=== PATIENT | female | born 1935 | race Caucasian/White ===

== ENCOUNTER 2016-06-04 09:20 | Emergency (ER) | payer MEDICARE ==
[2015-05-17 23:12] VITALS: BMI 28.5
[~2016-06-04 09:20] MED LIST: ASCORBIC ACID500 MG PO; ASPIRIN325 MG PO; COUMADIN5 MG PO; DULERA 100 MCG8.8 GM INH; INDERAL10 MG PO; K-TAB10 MEQ PO; LANOXIN125 MCG PO; LOPRESSOR25 MG PO; MEDROL4 MG PO; METOPROLOL TAR100 M1 PO; PEPCID40 MG PO; PLAVIX75 MG PO; PROTONIX40 MG PO; PROVERA10 MG PO; VITAMIN B-1100 M1 PO; VITAMIN B650 MG PO; VITAMIN D3400 UNI1 PO
[2016-06-04 10:08] LABS: BASOPHILS 0.1 % (0.0-2.0); EOSINOPHILS 1.2 % (0-7); HEMATOCRIT 50.3 % (36.0-48.0); IMMATURE GRANULOCYTES 0.3 % (0-5); LYMPHOCYTES 14.3 % (15-50); MCH 32.3 pg (26.0-34.0); MCHC 33.8 g/dL (31.0-37.0); MCV 95.6 fL (80.0-100.0); MEAN PLATELET VOLUME 11.9 fL (7.4-10.4); MONOCYTES 9.3 % (2-11); NEUTROPHILS 74.8 % (40-80); PLATELET COUNT 196 10x3/uL (130-400); RBC 5.26 10x6/uL (4.00-5.40); RDW 12.9 % (11.5-14.5); WBC 11.7 10x3/uL (4.8-10.8)
[2016-06-04 10:12] LABS: INR 1.66 (0.85-1.17); PROTIME 19.6 SECONDS (11.6-15.0)
[2016-06-04 10:40] LABS: ALKALINE PHOSPHATASE 67 U/L (46-116); ALT (SGPT) 21 U/L (10-68); CALC OSMOLALITY 272 mosm/kg (275-300); CALCIUM 9.2 mg/dL (8.5-10.1); CARBON DIOXIDE 26.4 mmol/L (21.0-32.0); CHLORIDE - SERUM 98 mmol/L (98-107); CREATININE - SERUM 0.7 mg/dL (0.6-1.3); POTASSIUM - SERUM 4.1 mmol/L (3.5-5.1); PROTEIN - SERUM 6.3 g/dL (6.4-8.2); SODIUM 135 mmol/L (136-145); UREA NITROGEN 10 mg/dL (7-18); eGFR NON AFRICAN AMERICAN 85 mL/min (90-120)
[2016-06-04 10:43] LABS: GLUCOSE 173 mg/dL (74-106); TROPONIN-I < 0.017 ng/mL (0.000-0.060)
== END 2016-06-04 11:34 | disposition home or self-care (01) ==
LOC: D.ER 09:20
PROVIDERS: Family Medicine
DX: K92.2 Gastrointestinal hemorrhage, unspecified (principal); N81.10 Cystocele, unspecified; I48.91 Unspecified atrial fibrillation; I10 Essential (primary) hypertension

== ENCOUNTER 2017-04-01 17:16 | Emergency (ER) | payer MEDICARE ==
[2015-05-17 23:12] VITALS: BMI 28.5
== END 2017-04-01 19:52 | disposition home or self-care (01) ==
LOC: D.ER 17:16
DX: S70.02XA Contusion of left hip, initial encounter (principal); W01.0XXA Fall on same level from slipping, tripping and stumbling without subsequent striking against object, initial encounter; Y93.89 Activity, other specified; Y92.89 Other specified places as the place of occurrence of the external cause

== ENCOUNTER 2017-04-05 08:44 | Inpatient (IN) | payer MEDICARE ==
[~2017-04-05] VITALS: Ht 152.4 cm; Wt 69.1 kg
--- NOTE | 2017-04-05 14:01 | NUR ---
PATIENT TO FLOOR AT THIS TIME. IV INTACT. FAMILY AT BEDSIDE. NO COMPLAINTS OR SIGNS OF DISTRESS. CALL LIGHT WITHIN REACH.
--- NOTE | 2017-04-05 15:00 | NUR ---
PATIENT IVF INFUSING AND MORPHINE 4 MG GIVEN IVP OVER 4 MIN. NO COMPLAINTS AT THIS TIME. FAMILY AT BEDSIDE. CALL LIGHT WITHIN REACH.
[2017-04-05 16:25] VITALS: BP 120/70; Ht 152.4 cm; Wt 69.1 kg
--- NOTE | 2017-04-05 16:26 | NUR ---
Rehab Note- Acute Rehab Prescreen order received. The pateint was admitted for the ER today. She has [employer] insurance and will require a PreAuth prior to an acute rehab stay. Will start the PreAuth process. Thank you for this referral! Mita Soto RN Clinical Liaison, [facility] Rehab
[2017-04-05 16:48] VITALS: BP 129/70
--- NOTE | 2017-04-05 18:30 | NUR ---
PATIENT IN BED WITH IV INTACT. NO COMPLAINTS AT THIS TIME. CALL LIGHT WITHIN REACH.
[2017-04-05 19:06] LABS: BASOPHILS 0.2 % (0-2); EOSINOPHILS 1.1 % (0-7); HEMATOCRIT 45.1 % (36.0-48.0); HEMOGLOBIN 15.6 g/dL (12-16); IMMATURE GRANULOCYTES 0.2 % (0-5); LYMPHOCYTES 17.7 % (15-50); MCH 32.6 pg (26.0-34.0); MCHC 34.6 g/dL (31.0-37.0); MCV 94.4 fL (80.0-100.0); MEAN PLATELET VOLUME 10.9 fL (7.4-10.4); MONOCYTES 11.5 % (2-11); NEUTROPHILS 69.3 % (40-80); PLATELET COUNT 185 10x3/uL (130-400); RBC 4.78 10x6/uL (4.00-5.40); RDW 13.1 % (11.5-14.5); WBC 5.7 10x3/uL (4.8-10.8)
[2017-04-05 19:11] LABS: INR 3.09 (0.85-1.17); PROTIME 32.1 SECONDS (11.6-15.0)
[2017-04-05 19:16] LABS: ALBUMIN 3.2 g/dL (3.4-5.0); ALKALINE PHOSPHATASE 65 U/L (46-116); ALT (SGPT) 36 U/L (10-68); BILIRUBIN - TOTAL 0.79 mg/dL (0.2-1.3); CALC OSMOLALITY 281 mosm/kg (275-300); CALCIUM 8.8 mg/dL (8.5-10.1); CARBON DIOXIDE 25.6 mmol/L (21.0-32.0); CHLORIDE - SERUM 103 mmol/L (98-107); CREATININE - SERUM 0.7 mg/dL (0.6-1.3); GLUCOSE 140 mg/dL (74-106); POTASSIUM - SERUM 3.7 mmol/L (3.5-5.1); PROTEIN - SERUM 6.5 g/dL (6.4-8.2); SODIUM 140 mmol/L (136-145); UREA NITROGEN 14 mg/dL (7-18); eGFR NON AFRICAN AMERICAN 85 mL/min (90-120)
[2017-04-05 20:00] VITALS: BP 127/60
[2017-04-06 00:43] VITALS: BP 140/77
[2017-04-06 04:00] VITALS: BP 120/65
[2017-04-06 06:47] LABS: BASOPHILS 0 % (0-2); EOSINOPHILS 0 % (0-7); HEMATOCRIT 46.1 % (36.0-48.0); HEMOGLOBIN 16.1 g/dL (12-16); IMMATURE GRANULOCYTES 0.2 % (0-5); LYMPHOCYTES 12.9 % (15-50); MCH 33.1 pg (26.0-34.0); MCHC 34.9 g/dL (31.0-37.0); MCV 94.9 fL (80.0-100.0); MEAN PLATELET VOLUME 10.8 fL (7.4-10.4); MONOCYTES 1.1 % (2-11); NEUTROPHILS 85.8 % (40-80); PLATELET COUNT 177 10x3/uL (130-400); RBC 4.86 10x6/uL (4.00-5.40); RDW 13.1 % (11.5-14.5); WBC 5.3 10x3/uL (4.8-10.8)
[2017-04-06 07:13] LABS: ALBUMIN 3.2 g/dL (3.4-5.0); ALKALINE PHOSPHATASE 59 U/L (46-116); ALT (SGPT) 41 U/L (10-68); CALC OSMOLALITY 278 mosm/kg (275-300); CARBON DIOXIDE 23.6 mmol/L (21.0-32.0); CHLORIDE - SERUM 102 mmol/L (98-107); GLUCOSE 165 mg/dL (74-106); POTASSIUM - SERUM 3.8 mmol/L (3.5-5.1); PROTEIN - SERUM 6.6 g/dL (6.4-8.2); SODIUM 137 mmol/L (136-145); UREA NITROGEN 16 mg/dL (7-18)
[2017-04-06 07:15] LABS: CALCIUM 9.4 mg/dL (8.5-10.1); CREATININE - SERUM 0.5 mg/dL (0.6-1.3); eGFR NON AFRICAN AMERICAN > 90 mL/min (90-120)
[2017-04-06 07:23] LABS: INR 2.9 (0.85-1.17); PROTIME 30.5 SECONDS (11.6-15.0)
[2017-04-06 09:30] VITALS: BP 140/78
--- NOTE | 2017-04-06 10:53 | NUR ---
Rehab Note- PreAuth started with Yvonne. Will follow at this time. The patient has been seen by Neurosurgeon and noted possible kyphoplasty for pain control due to compression fracture, this will need to be done during her acute hospital stay if chosen to proceed with this procedure. Thank you for this referral! Mita Soto RN Clinical Liaison, [facility] Re[facility]
--- NOTE | 2017-04-06 14:00 | NUR ---
PATIENT IV FELL OUT AT THIS TIME. CATH TIP INTACT. EXPLAINED TO PATIENT OK TO LEAVE OUT BC BEING DCD TODAY. VERBALIZED UNDERSTANDING.
[2017-04-06 14:13] VITALS: BP 142/71
--- NOTE | 2017-04-06 14:47 | NUR ---
Patient Name: EMILIANO PATEL Admission Status: ER Accout number: [id number] Admission Date: 04-05-2017 : 1935 Admission Diagnosis:UNSP FRACTURE OF T5-T6 VERTEBRA, INIT FOR CLOS FX Attending: JUANA BIRCH Current LOS: 1 Anticipated DC Date: Planned Disposition: Home Primary Insurance: [employer] CHOICE PPO MCR [employer] Discharge Planning Comments: CM MET WITH PATIENT TO ASSESS DISCHARGE PLANNING NEEDS. PATIENT LIVES HOME ALONE AND PLANS TO RETURN THERE TODAY. PATIENT'S DAUGHTER WILL BE DRIVING HER HOME. DR GAMBINO PERSONALLY WALKED PATIENT AND DID NOT WANT THE PATIENT TO HAVE HH, PATIENT ALSO DID NOT WANT HOME HEALTH. PATIENT STATED THAT SHE HAD PLENTY OF HELP AT HOME. PATIENT HAS A WALKER AT HOME. PATIENT ALSO HAS HOUSE CALLS WITH DR PIRES OFFICE. CM WILL CONTINUE TO FOLLOW AND ASSIST IF NEEDED [facility] [address] HUGH CISNEROS (DAUGHTER) [phone] Purchasing Analyst: Africa King * Is the patient Alert and Oriented? Yes 0 * How many steps to enter\exit or inside your home? 1 0 * PCP ELIZABETH HOUSE CALLS 0 * Pharmacy [facility] [address] 0 * Preadmission Environment Home Alone 0 * ADLs Independent 0 * Equipment Walker 0 * List name and contact numbers for known caregivers / representatives who currently or will assist patient after discharge: HUGH CISNEROS (DAUGHTER) [phone] 0 * Community resources currently utilized Other 0 * Please name any agencies selected above. HOUSE CALLS 0 * Additional services required to return to the preadmission environment? No 0 * Can the patient safely return to the preadmission environment? Yes 0 * Has this patient been hospitalized within the prior 30 days at any hospital? No 0 Grand Total: 0
--- NOTE | 2017-04-06 16:55 | NUR ---
PATIENT RECIEVED DISCHARGE INSTRUCTIONS. VERBALIZED UNDERSTANDING. NO QUESTIONS AT THIS TIME. FAMILY AT BEDSIDE. CALL LIGHT WITHIN REACH. WC FOR DC.
== END 2017-04-06 18:57 | disposition home or self-care (01) | DRG 552 ==
LOC: D.ER 08:44 → D.MS 12:26
PROVIDERS: ADMIT Emergency Medicine
DX: S22.059A Unspecified fracture of T5-T6 vertebra, initial encounter for closed fracture (principal); S22.069A Unspecified fracture of T7-T8 vertebra, initial encounter for closed fracture; S22.079A Unspecified fracture of T9-T10 vertebra, initial encounter for closed fracture; W17.89XA Other fall from one level to another, initial encounter; R07.9 Chest pain, unspecified; I48.91 Unspecified atrial fibrillation; I73.9 Peripheral vascular disease, unspecified; E87.5 Hyperkalemia; R79.89 Other specified abnormal findings of blood chemistry; G20 Parkinson's disease

== ENCOUNTER 2018-07-29 18:36 | Emergency (ER) | payer MEDICARE ==
[~2018-07-29] VITALS: Ht 152.4 cm; Wt 64.1 kg
[2018-07-29 18:41] VITALS: Ht 152.4 cm; Wt 64.1 kg
[2018-07-29 18:54] LABS: BASOPHILS 0.3 % (0-2); EOSINOPHILS 1.7 % (0-7); HEMATOCRIT 44.1 % (36.0-48.0); HEMOGLOBIN 15.2 g/dL (12-16); IMMATURE GRANULOCYTES 0.3 % (0-5); LYMPHOCYTES 24.5 % (15-50); MCH 32.5 pg (26.0-34.0); MCHC 34.5 g/dL (31.0-37.0); MCV 94.2 fL (80.0-100.0); MEAN PLATELET VOLUME 10.6 fL (7.4-10.4); NEUTROPHILS 60.2 % (40-80); RBC 4.68 10x6/uL (4.00-5.40); RDW 14.3 % (11.5-14.5); WBC 10.5 10x3/uL (4.8-10.8)
[2018-07-29 18:56] LABS: PLATELET COUNT 235 10x3/uL (130-400)
[2018-07-29 19:04] LABS: INR 1.27 (0.85-1.17); PROTIME 15.3 SECONDS (11.6-15.0)
[2018-07-29 19:06] LABS: ALBUMIN 3.1 g/dL (3.4-5.0); ALKALINE PHOSPHATASE 65 U/L (46-116); ALT (SGPT) 19 U/L (10-68); BILIRUBIN - TOTAL 0.38 mg/dL (0.2-1.3); CALC OSMOLALITY 272 mosm/kg (275-300); CALCIUM 8.5 mg/dL (8.5-10.1); CARBON DIOXIDE 28.8 mmol/L (21.0-32.0); CHLORIDE - SERUM 98 mmol/L (98-107); CREATININE - SERUM 0.7 mg/dL (0.6-1.3); GLUCOSE 121 mg/dL (74-106); POTASSIUM - SERUM 4.4 mmol/L (3.5-5.1); PROTEIN - SERUM 6.9 g/dL (6.4-8.2); SODIUM 136 mmol/L (136-145); UREA NITROGEN 13 mg/dL (7-18); eGFR NON AFRICAN AMERICAN 85 mL/min (90-120)
[2018-07-29 19:18] LABS: CKMB 0.7 U/L (0.0-3.6); CREATINE KINASE 132 UL (21-215); MAGNESIUM - SERUM 1.9 mg/dL (1.8-2.4)
[2018-07-29 19:27] LABS: TROPONIN-I < 0.017 ng/mL (0.000-0.060)
[2018-07-29 23:00] VITALS: BP 145/87
== END 2018-07-29 23:00 | disposition other institution (70) ==
LOC: D.ER 18:36
PROVIDERS: Emergency Medicine
DX: I63.9 Cerebral infarction, unspecified (principal); R29.810 Facial weakness; G81.91 Hemiplegia, unspecified affecting right dominant side; R47.9 Unspecified speech disturbances; Z92.82 Status post administration of tPA (rtPA) in a different facility within the last 24 hours prior to admission to current facility; I48.91 Unspecified atrial fibrillation; Z79.01 Long term (current) use of anticoagulants; I10 Essential (primary) hypertension; R74.8 Abnormal levels of other serum enzymes

== ENCOUNTER 2018-08-04 15:00 | Inpatient (IN) | payer MEDICARE ==
[~2018-08-04] VITALS: Ht 152.4 cm; Wt 54.4 kg
--- NOTE | 2018-08-04 15:15 | NUR ---
PATIENT ARRIVED TO UNIT VIA WHEELCHAIR ACCOMPANIED BY DAUGHTERS. TAKEN TO ROOM 1115 AND HOSPITAL GOWN WAS PUT ON HER. SHE WAS ASSISTED TO BED (MIN ASSIST). CALL LIGHT INSTRUCTIONS GIVEN. PATIENT ALERT AND ORIENTED. RESTING IN BED WATCHING TV AT THIS TIME.
[2018-08-04 15:50] VITALS: BP 135/84
--- NOTE | 2018-08-04 16:55 | NUR ---
ADMISSION ASSESSMENT AND ADMISSION HISTORY COMPLETED.
--- NOTE | 2018-08-04 19:25 | NUR ---
PATIENT IS RESTING IN HER BED. DENIES ANY NEEDS. HER BED IS DOWN LOW WITH SIDE RAILS UP X2 AND CALL LIGHT IS IN REACH.
[2018-08-04 19:34] VITALS: BP 121/54
--- NOTE | 2018-08-04 21:52 | NUR ---
PT SHOWERED WITH MIN ASSIST. BED LINENS CHANGED. PT ASSISTED BACK TO BED. PT VOICED COMPLAINT OF BP FEELING HIGH. IT WAS 202/82. PT MEDICATED PER JUL.
--- NOTE | 2018-08-04 21:53 | NUR ---
PT RESTING QUIETLY IN BED WITH EYES CLOSED. RESPS ARE EVEN AND UNLABORED. NO ACUTE DISTRESS NOTED.
--- NOTE | 2018-08-05 00:49 | NUR ---
PT RESTING IN BED WITH EYES CLOSED.
--- NOTE | 2018-08-05 03:59 | NUR ---
PT RESTING QUIETLY IN BED WITH EYES CLOSED. NO DISTRESS NOTED.
--- NOTE | 2018-08-05 06:12 | NUR ---
PT RESTING IN BED WITH EYES CLOSED. RESPS ARE EVEN AND UNLABORED. NO ACUTE DISTRESS NOTED. AWAITING THERAPY EVAL THIS AM.
[2018-08-05 07:18] LABS: BASOPHILS 0.6 % (0-2); EOSINOPHILS 2.3 % (0-7); HEMATOCRIT 42.8 % (36.0-48.0); HEMOGLOBIN 14.7 g/dL (12-16); IMMATURE GRANULOCYTES 0.4 % (0-5); LYMPHOCYTES 21.2 % (15-50); MCH 32.2 pg (26.0-34.0); MCHC 34.3 g/dL (31.0-37.0); MCV 93.9 fL (80.0-100.0); MEAN PLATELET VOLUME 10.4 fL (7.4-10.4); MONOCYTES 10.8 % (2-11); NEUTROPHILS 64.7 % (40-80); RBC 4.56 10x6/uL (4.00-5.40); RDW 13.8 % (11.5-14.5); WBC 8.3 10x3/uL (4.8-10.8)
[2018-08-05 07:26] LABS: CALC OSMOLALITY 281 mosm/kg (275-300); CALCIUM 8.6 mg/dL (8.5-10.1); CARBON DIOXIDE 27.5 mmol/L (21.0-32.0); CHLORIDE - SERUM 104 mmol/L (98-107); CREATININE - SERUM 0.6 mg/dL (0.6-1.3); GLUCOSE 107 mg/dL (74-106); POTASSIUM - SERUM 3.2 mmol/L (3.5-5.1); SODIUM 142 mmol/L (136-145); UREA NITROGEN 11 mg/dL (7-18); eGFR NON AFRICAN AMERICAN > 90 mL/min (90-120)
[2018-08-05 07:45] LABS: PLATELET COUNT 291 10x3/uL (130-400)
[2018-08-05 08:02] VITALS: BP 136/69
--- NOTE | 2018-08-05 10:56 | NUR ---
PATIENT ALERT AND OREINTED THIS MORNING. FED SELF 100% OF BREAKFAST. NO COMPLAINTS OF PAIN OR DISCOMFORT. HAS TROUBLE SPEAKING AT TIMES BUT APPEARS TO UNDERSTAND AND IS NOT CONFUSED THIS MORNING. UP FOR THERAPY THIS MORNING. WILL CONTINUE TO MONITOR.
[2018-08-05 11:08] VITALS: Ht 152.4 cm; Wt 54.4 kg
--- NOTE | 2018-08-05 17:35 | NUR ---
PATIENT HAD SPEECH THERAPY THIS AFTERNOON. GOT UP OUT OF BED WITHOUT ASKING FOR HELP. REMINDED THAT SHE NEEDS TO USE CALL LIGHT AND ASKE FOR HELP IF SHE NEEDS TO GET UP. FAMILY IN TO VISIT. PATIENT RESTING AT THIS TIME. WILL CONTINUE TO MONITOR. CALL LIGHT WITHIN REACH.
--- NOTE | 2018-08-05 19:20 | NUR ---
THE PATIENT WAS LYING IN BED AND WATCHING TELEVISION WHEN STAFF ENTERED HER ROOM. BED IS IN THE LOW POSITION WITH SIDERAILS X2 AND CALL LIGHT WITHIN REACH. THE PATIENT WAS EDUCATED ON THE NEED TO CALL FOR ASSISTANCE WHEN SHE WANTS TO GET OUT OF BED AND USE OF A CALL LIGHT. THE PATIENT DEMONSTRATED UNDERSTANDING OF BOTH VIA TEACHBACK METHOD. THE PATIENT APPEARS COMFORTABLE WITH NO QUESTIONS OR COCNERNS AT THIS TIME.
[2018-08-05 20:00] VITALS: BP 125/59
--- NOTE | 2018-08-06 02:13 | NUR ---
THE PATIENT APPEANS TO BE SLEEPING COMFORTABLY. BED IS IN THE LOW POSITION WITH SIDERAILS X2 AND CALL LIGHT WITHIN REACH.
--- NOTE | 2018-08-06 07:30 | NUR ---
REC'D PT IN BED WITH EYES OPEN. ALERT AND ORIENTED X 2. CONFUSION NOTED AT THIS TIME. NO C/O PAIN OR DISCOMFORT. S/SX OF DISTRESS NOTED. ASSESSMENT COMPLETED. PT HAS TROUBLE WITH SPEECH AT TIMES BUT STILL ABLE TO MAKE OUT WORDS. WILL CONTINUE TO MONITOR.
[2018-08-06 08:00] VITALS: BP 137/67
--- NOTE | 2018-08-06 14:32 | NUR ---
RESTING IN BED AT THIS TIME. NO DISTRESS NOTED.
--- NOTE | 2018-08-06 15:27 | NUR ---
PATIENT ADMITTED TO REHAB FROM ER. PATIENT PCP IS DR. CLAUS JOHNSON. WILL CONTINUE TO FOLLOW WITH PATIENT AND WILL ASSIT WITH DISCHARGE NEEDS,
--- NOTE | 2018-08-06 16:29 | NUR ---
NO CHANGE IN ASSESSMENT. NO DISTRESS NOTED. CL IN REACH. BED ALARM ON.
--- NOTE | 2018-08-06 19:41 | NUR ---
PATIENT RECEIVED SITTING UP IN BED WATCHING TV. VITAL SIGNS & ASSESMENT DONE. NO C/O PAIN OR DISTRESS. PATIENT BED LOW. ALARM ON. BEDSIDE TABLE & CALL LIGHT WITHIN REACH. WILL CONTINUE TO MONITOR.
[2018-08-06 19:57] VITALS: BP 117/59
--- NOTE | 2018-08-07 01:20 | NUR ---
RESTING IN BED WITH NO DISTRESS NOTED. RESPIRATIONS UNLABORED. CALL LIGHT IN REACH.
--- NOTE | 2018-08-07 03:58 | NUR ---
PATIENT EYES CLOSED. RESPIRATIONS 18 & EVEN. PATIENT BED LOW. ALARM ON. CALL LIGHT WITHIN REACH. WILL CONTINUE TO MOITOR.
[2018-08-07 07:28] LABS: BASOPHILS 0.4 % (0-2); EOSINOPHILS 3.4 % (0-7); HEMATOCRIT 40.1 % (36.0-48.0); HEMOGLOBIN 13.8 g/dL (12-16); IMMATURE GRANULOCYTES 0.4 % (0-5); LYMPHOCYTES 15.4 % (15-50); MCHC 34.4 g/dL (31.0-37.0); MEAN PLATELET VOLUME 10.2 fL (7.4-10.4); MONOCYTES 12.9 % (2-11); NEUTROPHILS 67.5 % (40-80); PLATELET COUNT 338 10x3/uL (130-400); RBC 4.31 10x6/uL (4.00-5.40); RDW 13.4 % (11.5-14.5); WBC 6.8 10x3/uL (4.8-10.8)
[2018-08-07 07:46] LABS: CALC OSMOLALITY 277 mosm/kg (275-300); CALCIUM 8.6 mg/dL (8.5-10.1); CARBON DIOXIDE 30.8 mmol/L (21.0-32.0); CHLORIDE - SERUM 102 mmol/L (98-107); CREATININE - SERUM 0.6 mg/dL (0.6-1.3); DIGOXIN 0.83 ng/mL (0.90-2.00); GLUCOSE 111 mg/dL (74-106); POTASSIUM - SERUM 3.2 mmol/L (3.5-5.1); SODIUM 140 mmol/L (136-145); eGFR NON AFRICAN AMERICAN > 90 mL/min (90-120)
[2018-08-07 07:47] LABS: UREA NITROGEN 7 mg/dL (7-18)
--- NOTE | 2018-08-07 07:53 | NUR ---
RESTING WO DISTRESS. RESP EVEN AND UNLABORED. BED ALARM ON.
[2018-08-07 08:00] VITALS: BP 121/58
--- NOTE | 2018-08-07 12:41 | NUR ---
SITTING IN CHAIR FOR LUNCH. NO C/O PAIN. DAUGHTER AT BS.
--- NOTE | 2018-08-07 13:31 | NUR ---
Nutrition Follow Up: Pt stated that her appetite is improving. RD encouraged pt to continue increasing po intake as able and to make staff aware of food preferences. Diet: Regular PO Intake: 59% meal avg BM: 08/04/18 Meds and labs reviewed Rec continue current diet. RD following.
--- NOTE | 2018-08-07 14:00 | NUR ---
REC'D PT IN THERAPY. PT IS ALERT AND ORIENTED WITH CONFUSION NOTED AT TIMES. DENIES ANY PAIN OR DISCOMFORT AT THIS TIME. NO S/SX OF DISTRESS NOTED. WILL CONTINUE TO MONITOR.
--- NOTE | 2018-08-07 19:50 | NUR ---
GREETED PATIENT AND INTRODUCED MYSELF HER NURSE. HELPED PATIENT BACK IN BED AND REARRANGED HER BLANKET. PATIENT IS CONFUSED AND KEEPS PULLING OFF HER BED SHEET AND BLANKET. CALL LIGHT IN REACH.
[2018-08-07 21:19] VITALS: BP 115/52
--- NOTE | 2018-08-08 01:30 | NUR ---
PATIENT ASLEEP WITH EYES CLOSED LAYING IN SUPINE POSITION. HOB AT 30 DEGREES. RESPIRATIONS EVEN. NO SIGNS OF DISTRESS. CALL LIGHT IN REACH.
[2018-08-08 08:14] VITALS: BP 110/48
--- NOTE | 2018-08-08 09:45 | NUR ---
PT AM MEDS ADMINISTERED. PT DENIES NEEDS. WCTM.
--- NOTE | 2018-08-08 19:40 | NUR ---
GREETED PATIENT AND INTRODUCED MYSLEF. PATIENT WAS ATTEMPTING TO CLIMB OUT OF BED BY HERSELF AND I REMINDED HER TO USE THE CALL LIGHT AND ASK FOR ASSISTANCE. PATIENT IS VERY CONFUSED THIS EVENING. PATIENT BACK TO BED AND REPOSITIONED FOR COMFORT. CALL LIGHT IN REACH.
[2018-08-08 20:57] VITALS: BP 119/65
--- NOTE | 2018-08-08 23:14 | NUR ---
PATIENT LAYING IN BED IN SUPINE POSITION RESTING QUIETLY WATCHING TV. RESPIRATIONS EVEN. NO S/S OF DISTRESS. CALL LIGHT IN REACH.
--- NOTE | 2018-08-08 23:41 | NUR ---
PT. OUT OF BED ON HER OWN AND WAS WANDERING AROUND IN HER ROOM. MOVED PATIENT TO NURSING STATION IN WHEELCHAIR TO MONITOR.
--- NOTE | 2018-08-09 03:36 | NUR ---
PATIENT ASLEEP WITH EYES CLOSED LAYING IN SUPINE POSITION. HOB AT 20 DEGREES. RESPIRATIONS EVEN. NO SIGNS OF DISTRESS. CALL LIGHT IN REACH.
[2018-08-09 06:17] LABS: BASOPHILS 0.4 % (0-2); EOSINOPHILS 2.6 % (0-7); HEMATOCRIT 41.3 % (36.0-48.0); HEMOGLOBIN 13.9 g/dL (12-16); IMMATURE GRANULOCYTES 0.2 % (0-5); LYMPHOCYTES 17.5 % (15-50); MCH 31.8 pg (26.0-34.0); MCHC 33.7 g/dL (31.0-37.0); MCV 94.5 fL (80.0-100.0); MONOCYTES 10.9 % (2-11); NEUTROPHILS 68.4 % (40-80); PLATELET COUNT 399 10x3/uL (130-400); RBC 4.37 10x6/uL (4.00-5.40); RDW 13.4 % (11.5-14.5); WBC 8.4 10x3/uL (4.8-10.8)
[2018-08-09 06:25] LABS: CALC OSMOLALITY 277 mosm/kg (275-300); CALCIUM 8.7 mg/dL (8.5-10.1); CARBON DIOXIDE 28.9 mmol/L (21.0-32.0); CHLORIDE - SERUM 103 mmol/L (98-107); CREATININE - SERUM 0.6 mg/dL (0.6-1.3); GLUCOSE 111 mg/dL (74-106); SODIUM 140 mmol/L (136-145); UREA NITROGEN 8 mg/dL (7-18); eGFR NON AFRICAN AMERICAN > 90 mL/min (90-120)
[2018-08-09 06:27] LABS: POTASSIUM - SERUM 3.9 mmol/L (3.5-5.1)
--- NOTE | 2018-08-09 07:30 | NUR ---
MORNING ASSESSMENT COMPLETE. SEE ASSESSMNET FLOWSHEET FOR FURTHER DETAILS. PT UP WITH PT. DENIES NEEDS AT THIS TIME.
--- NOTE | 2018-08-09 17:01 | RHP ---
PATIENT: EMILIANO PATEL MEDICAL RECORD: [id number] ACCOUNT: [id number] LOCATION:[id number] : 35 ADMISSION DATE: 08/04/18 REHABILITATION HISTORY AND PHYSICAL EXAMINATION POST ADMISSION PHYSICIAN EXAMINATION DATE OF ADMISSION: 08/04/2018 ADMITTING DIAGNOSIS: Acute ischemic stroke. HISTORY OF PRESENT ILLNESS: The patient is an 83-year-old female patient who has got past medical history of hypertension, peripheral vascular disease, CHF, and atrial fib. She was in her normal state of health and having conversation with the daughter when she had sudden onset of right-sided facial drooping and was unable to answer questions. EMS was called and she was taken to the ER. A CT of her brain did not reveal anything. She received TPA, without complication, and was transferred to [facility] for further evaluation and treatment. She was admitted to neurology stroke unit for close neurological monitoring. A repeat CTA of the head and neck with CT showed no obvious ischemia. She passed her repeat swallow test and is tolerating regular diet. An EEG showed no epileptiform movements overnight. Anticoagulation was started with Eliquis for atrial fib. She was treated with Rocephin for UTI. Prior to CVA, she was living at home. She had an aide that would assist her couple of times a week. She did a light housekeeping and personal care. She is following commands, continues to have right-sided weakness, mixed aphasia, and mild dysarthria. The patient denied any other complaints and she is following commands and doing well. Would definitely benefit from inpatient rehabilitation. COMORBIDITIES: In this patient include peripheral vascular disease, history of Parkinson's dementia, and CHF. PAST MEDICAL HISTORY: Significant for hypertension, CHF, Parkinson's dementia, atrial fib, CHF, peripheral vascular disease. PAST SURGICAL HISTORY: Please see previous charts. ALLERGIES: MILK CONTAINING PRODUCTS AND CODEINE. CURRENT MEDICATIONS: Include Ditropan 15 mg daily, digoxin 0.125 mg daily, atorvastatin 40 mg daily, Pepcid 40 mg b.i.d., metoprolol 25 mg b.i.d., and Eliquis 5 mg b.i.d. HABITS: No alcohol or tobacco use. FAMILY HISTORY: Noncontributory. SOCIAL HISTORY: The patient hopes to return back home and get back to her prior level of functioning. REVIEW OF SYSTEMS: Difficult to maintain secondary to her mixed aphasia. PHYSICAL EXAMINATION: VITAL SIGNS: Stable. She is afebrile. Temperature is 98.2, pulse of 90, respirations 18, blood pressure 136/69. GENERAL: A well-developed elderly female, in no acute distress, alert upon HISTORY AND PHYSICAL [id number] JORGEEMILIANO F exam. HEENT: Normocephalic and atraumatic. Mucosa moist. NECK: Supple. No lymphadenopathy. LUNGS: Clear at this time. No wheeze, rhonchi or rales. HEART: Irregular rate and rhythm. No murmurs, rubs or gallops. ABDOMEN: Benign. EXTREMITIES: No clubbing, cyanosis or edema. NEUROLOGIC: She does have changes consistent with a CVA in the past. LABORATORY DATA: White count is 8.3, H&H of 14 and 42, and platelet count was noted to be 291. Her sodium is 142, potassium 3.2, BUN and creatinine of 11 and 0.6, and blood sugar was noted to be 107. ASSESSMENT: This is an 83-year-old female patient admitted to rehab with a working diagnosis of new onset cerebrovascular accident. The patient has potential to make improvement. We instituted the following multidisciplinary therapies include, but not limited to physical, occupational, respiratory, speech, nutritional services, prosthetics and orthotics. Given her complex medical condition and risks for more complications, rehabilitation services cannot be provided at a low level of care such as skilled nurse facility. PLAN: 1. Admit to [facility] rehab for an inpatient therapy to include the following disciplines: A. Physical therapy to improve gait, all transfer skills and bed mobility to a modified independent level. B. Occupational therapy to improve activities of daily living to a modified independent level. C. Case management to assist with discharge planning and placement options. D. Nutrition to assist with nutritional needs. E. Rehabilitation nursing to assist in monitoring the patient's underlying medical conditions and to assist with any type of bowel or bladder management. 2. The patient's current medication and medical care will be continued. 3. The patient will be placed on standard fall precautions. 4. We will manage her digoxin levels as needed for her atrial fibrillation. 5. We will continue on Eliquis for any type of stroke prophylaxis and also for atrial fibrillation. 6. I am going to see her back in the a.m. TRANSINT:[id number] Voice Confirmation ID: [id number] DOCUMENT ID: [id number] TIFFANY notes whether there has been none or any medical/functional change since admission: - No change since prescreen. TIFFANY attests patient continues to be appropriate for IRF: - Continues to be appropriate. HISTORY AND PHYSICAL [id number] EMILIANO PATEL SCOTT MD at 1701 CC: [id number] DICTATION DATE: 08/05/18 0850 SUPERVISOR JOINERS: 08/05/18 1015 ADM IN [place] [id number] [place] [id number]
--- NOTE | 2018-08-09 19:10 | NUR ---
PATIENT IS SLEEPING. BED IS DOWN LOW WITH SIDE RAILS UP X2. CL IS IN REACH.
[2018-08-09 21:41] VITALS: BP 125/61
--- NOTE | 2018-08-09 23:40 | NUR ---
RESTING QUIETLY IN BED WITH EYES CLOSED. RESPS ARE EVEN AND UNLABORED. NO ACUTE DISTRESS NOTED.
--- NOTE | 2018-08-10 03:31 | NUR ---
PT RESTING QUIETLY IN BED WITH EYES CLOSED.
[2018-08-10 08:00] VITALS: BP 131/54
--- NOTE | 2018-08-10 08:00 | NUR ---
PATIENT IS ALERT WITH SOME CONFUSION NOTED. BED ALARM ON. CALL LIGHT WITHIN REACH. VOICES NO NEEDS. WILL COTINUE WITH PLAN OF CARE
--- NOTE | 2018-08-10 10:09 | NUR ---
THE PATIENT IS SITTING IN HER CHAIR. SHE HAS NO QUESTIONS OR CONCERNS AT THIS TIME.
--- NOTE | 2018-08-10 10:38 | NUR ---
PATIENT SITTING UP IN CHAIR AT BEDSIDE. CHAIR ALARM ON.
--- NOTE | 2018-08-10 11:21 | NUR ---
PATIENT WORKING WITH PHYSICAL THERAPIST. WALKING UP AND DOWN HALLWAY WITH WHEELED WALKER
--- NOTE | 2018-08-10 18:37 | NUR ---
PT RESTING IN BED WITH EYES OPEN CALL LIGHT IN REACH NO PROBLEMS WILL MONITER
[2018-08-10 19:50] VITALS: BP 123/61
--- NOTE | 2018-08-10 20:00 | NUR ---
PT IS RESTING QUIETLY IN BED WITH EYES CLOSED. AWOKE EASILY TO VERBAL STIMULI. DENIES ACUTE PAIN OR DISCOMFORT AT THIS TIME. NO NEEDS VOICED. VSS. SR'S ARE UP X 3 IN BED. CALL LIGHT AND BEDSIDE TABLE ARE WITHIN EASY REACH. BED ALARM ON.
--- NOTE | 2018-08-10 22:27 | NUR ---
RESTING QUIETLY IN BED WITH EYES CLOSED. RESPS ARE EVEN AND UNLABORED. NO ACUTE DISTRESS NOTED.
--- NOTE | 2018-08-10 23:57 | NUR ---
AWAKE AND RESTING IN BED DRINKING WATER. NO C/O DISCOMFORTS NO DISTRESS NOTED.
--- NOTE | 2018-08-11 04:34 | NUR ---
PT RESTING QUIETLY IN BED WITH EYES CLOSED. RESPS ARE EVEN AND UNLABORED. NO ACUTE DISTRESS NOTED.
--- NOTE | 2018-08-11 07:35 | NUR ---
PT SITTING UP ON SIDE OF BED EATING BREAKFAST. DENIES NEEDS OR PAIN AT THIS TIME. BED IN LOW. SIDE RAILS X2. BED ALARM ON. RESP EVEN AND UNLABORED. CALL LIGHT IN REACH. WILL CONTINUE TO MONITOR.
[2018-08-11 08:12] VITALS: BP 127/59
--- NOTE | 2018-08-11 11:30 | NUR ---
PT LYING IN BED. CALL LIGHT IN REACH. DENIES NEEDS AT THIS TIME.
--- NOTE | 2018-08-11 16:20 | NUR ---
PT LYING IN BED. CALL LIGHT IN REACH. DENIES NEEDS AT THIS TIME. BED ALARM ON
--- NOTE | 2018-08-11 18:10 | NUR ---
PATIENT SITTING UP IN BED EATING SUPPER.
[2018-08-11 19:05] VITALS: BP 117/53
--- NOTE | 2018-08-11 19:20 | NUR ---
PT IS RESTING IN BED WITH EYES OPEN. ALERT TO SELF. CONFUSED TO TIME AND SITUATION. PT VOICES UNDERSTANDING OR REORIENTATION, BUT DOES NOT FOLLOW THE INSTRUCTIONS. ASSISTED TO THE BATHROOM WITH MIN ASSIST AT THIS TIME. SMALL BM NOTED, AND PT ASSISTED BACK TO BED. NATHEN ALARM IS ON. VSS. SR'S ARE UP X 3 IN BED. CALL LIGHT AND BEDSIDE TABLE ARE WITHIN EASY REACH.
--- NOTE | 2018-08-11 21:17 | NUR ---
PT IS RESTING QUIETLY IN BED WITH EYES CLOSED. RESPS ARE EVEN AND UNLABORED. NO ACUTE DISTRESS NOTED.
--- NOTE | 2018-08-12 01:49 | NUR ---
RESTING IN BED. RECENTLY ASSISTED TO BATHROOM. NO DISTRESS NOTED.
--- NOTE | 2018-08-12 05:05 | NUR ---
PT RESTING IN BED WITH EYES CLOSED. ASSISTED TO THE BATHROOM PRN.
[2018-08-12 07:39] LABS: BASOPHILS 0.4 % (0-2); EOSINOPHILS 3.1 % (0-7); HEMATOCRIT 40.6 % (36.0-48.0); HEMOGLOBIN 13.7 g/dL (12-16); IMMATURE GRANULOCYTES 0.1 % (0-5); LYMPHOCYTES 17.2 % (15-50); MCH 32.4 pg (26.0-34.0); MCHC 33.7 g/dL (31.0-37.0); MEAN PLATELET VOLUME 9.9 fL (7.4-10.4); MONOCYTES 10.4 % (2-11); NEUTROPHILS 68.8 % (40-80); PLATELET COUNT 381 10x3/uL (130-400); RBC 4.23 10x6/uL (4.00-5.40); RDW 13.6 % (11.5-14.5); WBC 7.7 10x3/uL (4.8-10.8)
[2018-08-12 07:57] LABS: CALC OSMOLALITY 274 mosm/kg (275-300); CALCIUM 8.6 mg/dL (8.5-10.1); CARBON DIOXIDE 26.4 mmol/L (21.0-32.0); CHLORIDE - SERUM 103 mmol/L (98-107); CREATININE - SERUM 0.5 mg/dL (0.6-1.3); GLUCOSE 113 mg/dL (74-106); POTASSIUM - SERUM 3.7 mmol/L (3.5-5.1); SODIUM 138 mmol/L (136-145); UREA NITROGEN 8 mg/dL (7-18); eGFR NON AFRICAN AMERICAN > 90 mL/min (90-120)
--- NOTE | 2018-08-12 08:00 | NUR ---
PATIENT IS ALERT/NOT ORIENT TO SITUATION. PLEASANT. BED ALARM ON. CALL LIGHT WITHIN REACH. VOICES NO NEEDS AT THIS TIME. WILL CONTINUE WITH PLAN OF CARE
[2018-08-12 08:16] VITALS: BP 132/58
--- NOTE | 2018-08-12 09:30 | NUR ---
DR JACKSON INTO SEE PATIENT. NEW ORDERS RECEIVED.
--- NOTE | 2018-08-12 09:40 | NUR ---
PATIENT RESTING QUIETLY IN ROOM AT THIS TIME.
--- NOTE | 2018-08-12 12:08 | NUR ---
Regular diet with 79% average po intake past 2 days Pt is on Megace BM yesterday Spoke with pt about nutrition and encouraged good po intake to help optimize progress in therapy Pt has no nutrition related questions at this time RD following per protocol
--- NOTE | 2018-08-12 15:45 | NUR ---
CLINICAL UPDATES FAXED TO GABRIELLA KOWALSKI AT [phone], REGARDING AUTH #[id number] WITH CONFORMATION RECIEVED
--- NOTE | 2018-08-12 16:14 | NUR ---
PATIENT RESTING IN BED AFTER THERAPY. BED ALARM ON. CALL LIGHT WITHIN REACH
--- NOTE | 2018-08-12 19:30 | NUR ---
PT IS RESTING IN BED WITH EYES OPEN. ALERT TO SELF. CONFUSED TO TIME AND SITUATION. PT ASSISTED TO THE BATHROOM WITH CGA. VOIDED WITHOUT DIFFICULTY, AND THEN BACK TO BED. BED ALARM IS ON. SR'S ARE UP X 3 IN BED. CALL LIGHT AND BEDSIDE TABLE ARE WITHIN EASY REACH.
--- NOTE | 2018-08-12 21:17 | NUR ---
PT IS RESTING IN BED WATCHING TV.NO NEEDS VOICED.
--- NOTE | 2018-08-13 00:30 | NUR ---
RESTING IN BED WITH EYES CLOSED. NO DISTRESS NOTED.
--- NOTE | 2018-08-13 05:07 | NUR ---
PT ASLEEP NO NEEDS NOTED FLUIDS AND CALL LIGHT WITHIN REACH
--- NOTE | 2018-08-13 08:00 | NUR ---
SHIFT ASSMT COMPLETED.DENIES NEEDS.BREAKFAST GIVEN.
[2018-08-13 08:16] VITALS: BP 123/58
--- NOTE | 2018-08-13 11:12 | NUR ---
RECIEVED CALL FROM MIQUEL FROM [facility], NEXT UPDATES DUE 08/19/18. WILL CONTINUE TO FOLLOW WITH PATIENT.
--- NOTE | 2018-08-13 12:00 | NUR ---
UP IN WC.EATING LUNCH.
[2018-08-13 19:00] VITALS: BP 112/54
--- NOTE | 2018-08-13 19:42 | NUR ---
PT RESTING QUIETLY. CALL LIGHT IN REACH. EYES CLOSED. NO SIGNS OF DISTRESS OR PAIN. BED IN LOW. SIDE RAILS X2. RESP EVEN AND UNLABORED. WILL CONTINUE TO MONITOR.
--- NOTE | 2018-08-14 02:11 | NUR ---
PT RESTING QUIETLY. CALL LIGHT IN REACH. NO SIGNS OF DISTRESS OR PAIN
--- NOTE | 2018-08-14 02:20 | NUR ---
PT ASLEEP NO NEEDS NOTED FLUIDS AND CALL LIGHT WITHIN REACH
--- NOTE | 2018-08-14 06:23 | NUR ---
PT RESTING QUIETLY. CALL LIGHT IN REACH. NO SIGNS OF DISTRESS OR PAIN.
--- NOTE | 2018-08-14 08:00 | NUR ---
SHIFT ASSMT COMPLETED.
[2018-08-14 08:16] VITALS: BP 125/82
--- NOTE | 2018-08-14 12:00 | NUR ---
SITTING UP IN WC EATING LUNCH.
--- NOTE | 2018-08-14 12:00 | NUR ---
SITTING UP IN WC FOR LUNCH.CL IN REACH.
--- NOTE | 2018-08-14 14:46 | NUR ---
SHIFT ASSM COMPLETED.
--- NOTE | 2018-08-14 14:46 | NUR ---
UP OOB X3.CONFUSED TO PLACE AND TIME.RE-ORIENTED BUT STILL STATES THIS IS HER HOUSE.ALARMS RESET.MONITOR CLOSELY.
--- NOTE | 2018-08-14 16:48 | NUR ---
CARE TEAM MEETING: PATIENT DOING WELL IN THERAPY. TENTAIVE DISCHARGE DATE IS 08/22/18. WILL CONTINUE TO FOLLOW WITH PATIENT.
[2018-08-14 19:00] VITALS: BP 139/70
--- NOTE | 2018-08-14 19:42 | NUR ---
AWAKE AND ALERT. NOTED CONFUSED. SITTING IN WHEELCHAIR. RESPIRATIONS UNLABORED. NO DISTRESS NOTED. CALL LIGHT IN REACH.
--- NOTE | 2018-08-15 02:15 | NUR ---
RESTING IN BED WITH RESPIRATIONS UNLABORED. NO DISTRESS NOTED.
[2018-08-15 07:58] VITALS: BP 107/54
[2018-08-15 19:00] VITALS: BP 122/68
--- NOTE | 2018-08-15 23:37 | NUR ---
RESTING IN BED WITH EYES CLOSED AND RESPIRATIONS UNLABORED. NO DISTRESS NOTED. CALL LIGHT IN REACH.
--- NOTE | 2018-08-16 03:29 | NUR ---
RESTING IN BED WITH EYES CLOSED AND RESPIRATIONS UNLABORED. NO DISTRESS NOTED. CALL LIGHT IN REACH.
--- NOTE | 2018-08-16 07:02 | NUR ---
RESTING QUIETLY IN BED. NO S/S DISTRESS. RESP EFFORT NON LABORED. EYES CLOSED. BED IN LOWEST POSITION. CALL LIGHT IN REACH.
[2018-08-16 08:00] VITALS: BP 129/70
--- NOTE | 2018-08-16 08:15 | NUR ---
PT RESTING IN BED WITH EYES OPEN CALL LIGHT IN REACH WILL MONITER
--- NOTE | 2018-08-16 13:34 | NUR ---
Nutrition Follow Up: Pt did not speak to RD at the time of visit, but did smile when asked if appetite was okay. RD encouraged pt to continue increasing po intake as able. Diet: Regular PO Intake: 46% meal avg BM: 08/12/18 Labs reviewed Meds noted including Megace Rec continue current diet. Will continue to honor food preferences. RD following.
--- NOTE | 2018-08-16 18:25 | NUR ---
PT RESTING IN BED WITH EYES OPEN CALL REMBERTO GONZALEZ WILL MONITER
[2018-08-16 19:00] VITALS: BP 148/92
--- NOTE | 2018-08-16 19:00 | NUR ---
PT IN BED IN LOW FOWLERS POSITION. ALERT AND ORIENTED X4. RESPIRATIONS EVEN AND UNLABORED. VITAL SIGNS STABLE AND AFEBRILE. NO VISUAL CUES OF DISTRESS NOTED. DENIES ANY OTHER NEEDS AT THIS TIME. BED LOW, SIDE RAILS UP X2. CALL LIGHT IN REACH. WILL CONTINUE TO MONITOR.
[2018-08-17 07:30] VITALS: BP 136/70
--- NOTE | 2018-08-17 07:59 | NUR ---
PT SITTING UP IN WHEELCHAIR EATING BREAKFAST, CARMINE NEEDS. WCTM.
--- NOTE | 2018-08-17 18:26 | NUR ---
PT SITTING UP IN WHEELCHAIR EATING DINNER, DENIES NEEDS. WCTM.
--- NOTE | 2018-08-17 19:41 | NUR ---
THE PATIENT WAS SITTING IN HER WHEELCHAIR WHEN STAFF ENTERED HER ROOM. THE PATIENT IS CONFUSED TO PLACE, TIME, AND SITUATION. UNABLE TO RETURN DEMONSTRATE EDUCATION ON USE OF A CALL LIGHT. ALL ALARMS CHECKED AND AUDIABLE. THE PATIENT APPEARS COMFORTABLE WITH NO QUESTIONS OR CONCERNS AT THIS TIME.
[2018-08-17 21:41] VITALS: BP 134/63
--- NOTE | 2018-08-18 03:55 | NUR ---
THE PATIENT IS SITTING UP IN BED AND WATCHING TELEVISION. SHE APPEARS COMFORTABLE AND HAS NO QUESTIONS OR CONCERNS AT THIS TI,E.
--- NOTE | 2018-08-18 08:00 | NUR ---
PT SITTING UP IN WHEELCHAIR EATING BREAKFAST, DENIES NEEDS. WCTM.
--- NOTE | 2018-08-18 10:00 | NUR ---
PT AM MEDS ADMINISTERED. PT ASSISTED BACK TO BED. WCTM.
[2018-08-18 10:21] VITALS: BP 122/70
--- NOTE | 2018-08-18 14:42 | NUR ---
PT UNABLE TO VOID. BLADDER SCANNER DONE AND REVEALED 500ML. UPON SETUP FOR IN AND OUT CATHETER A LARGE PINK BULGING BALL SHAPED FORM WAS PROTRUDING FROM VAGINAL AREA WAS NOTED. IN AND OUT CATHETER COMPLETED WITH 500ML OUT. WCTM.
--- NOTE | 2018-08-18 17:45 | NUR ---
PT EATING DINNER, CARMINE NEEDS. WCTM.
--- NOTE | 2018-08-18 19:26 | NUR ---
THE PATIENT WAS LYING IN BED AND WATCHING TELEVISION WHEN STAFF ENTERED HER ROOM. BED IS IN THE LOW POSITION WITH SIDERAILS X2 AND CALL LIGHT WITHIN REACH. PATIENT WAS EDUCATED ON THE NEED TO CALL THE NURSE WITH ANY QUESTIONS OR CONCERNS BUT WAS UNABLE TO DEMONSTRATE UNDERSTANDING. THE PATIENT APPEARS COMFORTABLE. BED ARALM TESTED AND FUNCTIONING PROPERLY.
[2018-08-18 20:08] VITALS: BP 143/81
--- NOTE | 2018-08-19 02:53 | NUR ---
THE PATIENT IS LYING IN BED AND WATCHING TELEVISION. BED REMAINS IN THE LOW POSITION WITH SIDERAILS X2 AND CALL LIGHT WITHIN REACH. THE PATIENT APPEARS COMFORTABLE AND HAS NO QUESTIONS OR CONCERNS AT THIS TIME.
--- NOTE | 2018-08-19 07:30 | NUR ---
SITTING IN WC IN WALL. DENIES NEEDS OR C/O. IS ORIENTED TO SELF ONLY.
[2018-08-19 08:17] VITALS: BP 124/67
[2018-08-19 09:19] LABS: BASOPHILS 0.4 % (0-2); EOSINOPHILS 2.5 % (0-7); HEMATOCRIT 43.4 % (36.0-48.0); HEMOGLOBIN 14.7 g/dL (12-16); IMMATURE GRANULOCYTES 0.2 % (0-5); LYMPHOCYTES 13.6 % (15-50); MCH 32.1 pg (26.0-34.0); MCHC 33.9 g/dL (31.0-37.0); MCV 94.8 fL (80.0-100.0); MEAN PLATELET VOLUME 10.4 fL (7.4-10.4); MONOCYTES 9.8 % (2-11); NEUTROPHILS 73.5 % (40-80); PLATELET COUNT 332 10x3/uL (130-400); RBC 4.58 10x6/uL (4.00-5.40); RDW 13.5 % (11.5-14.5); WBC 8.5 10x3/uL (4.8-10.8)
[2018-08-19 09:53] LABS: CALC OSMOLALITY 277 mosm/kg (275-300); CARBON DIOXIDE 24.4 mmol/L (21.0-32.0); CHLORIDE - SERUM 102 mmol/L (98-107); CREATININE - SERUM 0.7 mg/dL (0.6-1.3); DIGOXIN 0.53 ng/mL (0.90-2.00); GLUCOSE 129 mg/dL (74-106); POTASSIUM - SERUM 3.5 mmol/L (3.5-5.1); SODIUM 139 mmol/L (136-145); UREA NITROGEN 8 mg/dL (7-18); eGFR NON AFRICAN AMERICAN 85 mL/min (90-120)
--- NOTE | 2018-08-19 10:20 | NUR ---
DR BIRCH WROTE FOR CONSULT TO DR LIU FOR POSSIBLE PROLAPSED BLADDER. DR LIU CALLED AND HE STATED DR BOCANEGRA DOES THOSE CONSULTS SINCE HE IS UROLOGY. DR. BOCANEGRA OFFICE CALLED AND THEY SAID HE WAS ON VACATION THIS WEEK AND WOULD NOT BE AVAIL TILL 08/23/18. DR BIRCH NOTIFIED.
--- NOTE | 2018-08-19 10:32 | NUR ---
SITTING IN ROOM WATCHING TV. DENIES C/O. CALL LIGHT IN REACH.
--- NOTE | 2018-08-19 17:33 | NUR ---
ROLLING AROUND ROOM IN WC. STILL CONFUSED BUT PLEASANT AND COOPERATIVE. CALL LIGHT IN REACH ON BED
[2018-08-19 19:00] VITALS: BP 121/64
--- NOTE | 2018-08-19 19:20 | NUR ---
PT RESTING IN BED WITH EYES OPEN. ALERT TO SELF ONLY. CONFUSED TO TIME, PLACE AND SITUATION. PT ASSISTED TO THE BATHROOM AT THIS TIME. SHE AMBULATES WITH CGA. VOIDED WITHOUT DIFFICULTY. NO FURTHER NEEDS VOICED. SR'S ARE UP X 3 IN BED. CALL LIGHT AND BEDSIDE TABLE ARE WITHIN EASY REACH. BED ALARM IS ON.
--- NOTE | 2018-08-19 21:10 | NUR ---
PT IS RESTING QUIETLY IN BED WITH EYES CLOSED. RESPS ARE EVEN AND UNLABORED. NO ACUTE DISTRESS NOTED.
--- NOTE | 2018-08-20 00:55 | NUR ---
RESTING IN BED WITH EYES CLOSED AND REPSIRATIONS UNLABORED. NO DISTERSS NOTED. CALL LIGHT IN REACH.
--- NOTE | 2018-08-20 05:38 | NUR ---
PT RESTING IN BED WITH EYES CLOSED. ASSISTED TO THE BATHROOM PRN.
[2018-08-20 08:00] VITALS: BP 121/61
--- NOTE | 2018-08-20 08:29 | NUR ---
ALERT WITH CONFUSION. BED ALARM IS ON. ATTEMPTS TO GET UP WO USING CL. SAFETY REINFORCED. NEEDS CONTINUAL REINFORCEMENT NO C/O PAIN. EATING BREAKFAST. CL IN REACH.
--- NOTE | 2018-08-20 12:42 | NUR ---
EATING LUNCH. PARTICIPATED IN THERAPY TODAY. NO C/O PAIN. CL IN REACH. SITTING IN WC WITH CHAIR ALARM ON.
--- NOTE | 2018-08-20 13:43 | NUR ---
Nutrition Follow Up: Pt barely spoke with RD at the time of visit. When asked how her appetite was she shrugged her shoulders and pointed to her untouched lunch tray. RD offered to cut up chicken, fix baked potato but pt stated "no." RD asked pt if she would like meat to be cut when tray comes and she said "yes." RD encouraged pt to increase po intake as able. Diet: Regular PO Intake: 40% meal avg BM: 08/20/18 Labs reviewed Meds noted including Megace Rec continue current diet. Will put order in to cut meat into bite sized portions. Will continue to honor food preferences. RD following.
--- NOTE | 2018-08-20 16:33 | NUR ---
NO CHANGE IN ASSESSMENT. NO DISTRESS NOTED. SITTING IN WC. CL IN REACH. RESP EVEN AND UNLABORED. CL IN REACH.
[2018-08-20 19:00] VITALS: BP 111/58
--- NOTE | 2018-08-20 19:31 | NUR ---
PT AWAKE LAYING ON LEFT SIDE QUIETLY, NO NEEDS NOTED, SMILING, FLUIDS AND CALL LIGHT WITHIN REACH, PT DOESN'T USE CALL LIGHT, GETS OUT OF BED TO TOILET SELF, ALARM SOUNDS WHEN GET TO ROOM PT IS TRYING TO TURN ALARM OFF, ALWAYS PLEASANT, IS REDIRECTED EASILY, FOLLOWS DIRECTION, FORGETFUL
--- NOTE | 2018-08-21 01:59 | NUR ---
PT EC RE BL F&CL WI R
--- NOTE | 2018-08-21 07:53 | NUR ---
ALERT WITH CONFUSION. BED/CHAIR ALARM IN USE. SAFETY PRECAUTIONS REINFORCED. EATING BREAKFAST. RESP EVEN AND UNLABORED. CL IN REACH. NO DISTRESS NOTED.
[2018-08-21 08:00] VITALS: BP 114/63
--- NOTE | 2018-08-21 08:47 | NUR ---
SHOWER PER OT AT THIS TIME.
--- NOTE | 2018-08-21 11:57 | NUR ---
SITTING IN WC. NO DISTRESS NOTED.
--- NOTE | 2018-08-21 14:56 | NUR ---
CARE TEAM MEETING: DAUGHTER ATTENDED MEETING. HER QUESTIONS AND CONCERNS WERE ADDRESSED. SHE STATES SHE IS UNABLE TO CARE FOR HER MOTHER AT HOME, SO SHE WOULD LIKE A REFERRAL SENT TO [facility]. REFERAL HAS BEEN FAXED . PATIENT HAS [employer] INSURANCE FACILITY WILL GET PA. WILL CONTINUE TO FOLLOW WITH PATIENT. TENATIVE DISCHARGE DATE IS 08/22/18 PENDING INSURANCE.
--- NOTE | 2018-08-21 16:28 | NUR ---
SITTING IN WC. NO CHANGE IN ASSESSMENT. NO DISTRESS NOTED.
--- NOTE | 2018-08-21 16:40 | NUR ---
CLINICAL UPDATES FAXED TO GABRIELLA KOWALSKI FAXED TO , AUTH # [id number] WITH CONFORMAION RECIEVED
[2018-08-21 19:00] VITALS: BP 122/76
--- NOTE | 2018-08-21 20:01 | NUR ---
PT IN BED EYES OPEN WATCHING TV, BED LOW, NO NEEDS NOTED, FLUIDS AND CALL LIGHT WITHIN REACH
--- NOTE | 2018-08-22 00:10 | NUR ---
PT IN BED, LOWEST POSITION, EYES CLOSED, AROUSES EASILY TO VOICE, FLUIDS AND CALL LIGHT WITHIN REACH, NO NEEDS NOTED
[2018-08-22 08:00] VITALS: BP 128/69
--- NOTE | 2018-08-22 08:00 | NUR ---
PATIENT IS ALERT/PLEASANTLY CONFUSED. ORIENT TO SELF ONLY. BED ALARM ON. CALL LIGHT WITHIN REACH. PLAN TO DISCHARGE TODAY
[2018-08-22] MEDS ORDERED: MEGACE40 MG PO (08:23)
[2018-08-22] MEDS ORDERED: LIPITOR20 MG PO (08:23)
[2018-08-22] MEDS ORDERED: ELIQUIS5 MG PO (08:23)
[2018-08-22] MEDS ORDERED: OXYBUTYNIN CHLOR5 MG PO (08:23)
[2018-08-22] MEDS ORDERED: LOPRESSOR25 MG PO (08:23)
[2018-08-22] MEDS ORDERED: LANOXIN125 MCG PO (08:23)
--- NOTE | 2018-08-22 09:53 | NUR ---
DR Cony BIRCH INTO SEE PATIENT. NEW ORDERS TO DISCHARGE THIS PATIENT
--- NOTE | 2018-08-22 13:21 | NUR ---
PATIENT SITTING UP IN WHEELCHAIR AT BEDSIDE. CHAIR ALARM ON. CALL LIGHT WITHIN REACH
--- NOTE | 2018-08-22 16:34 | NUR ---
SPOKE WITH DAUGHTER MRS. ROSA ABOUT HER MOTHERS INSURANCE DECLINING HER ADMISSION TO A SNF FACILITY. I TOLD HER THAT I WOULD TELL DR. BIRCH ABOUT POSSIBLEY DOING A PEER TO PEER., KNOWING THAT THEY STILL MAY DECLINE HER ADMISSION TO SNF BUT THAT SHE COULD STILL GO ALF IF THAT IS WHAT THE FAMILY DECIDES. WILL CONTINUE TO FOLLOW WITH PATIENT.
--- NOTE | 2018-08-22 19:17 | NUR ---
PT LYING IN BED WATCHING TV. CALL LIGHT IN REACH. PT DENIES NEEDS OR PAIN. RESP EVEN AND UNLABORED. BED ALARM ON. BED IN LOW. SIDE RAILS X2. WATER IN REACH. A/O X2. CONFUSED. WILL CONTINUE TO MONITOR.
[2018-08-22 19:49] VITALS: BP 88/49
--- NOTE | 2018-08-23 01:33 | NUR ---
RESTING IN BED WITH EYES CLOSED AND RESPIRATIONS UNLABORED. NO DISTRESS NOTED.
--- NOTE | 2018-08-23 02:13 | NUR ---
toileted pt. back in bed. call light in reach. bed alarm on.
[2018-08-23 06:35] LABS: BASOPHILS 0.3 % (0-2); EOSINOPHILS 5.8 % (0-7); HEMATOCRIT 40.8 % (36.0-48.0); HEMOGLOBIN 13.8 g/dL (12-16); IMMATURE GRANULOCYTES 0.1 % (0-5); LYMPHOCYTES 15.5 % (15-50); MCH 31.6 pg (26.0-34.0); MCHC 33.8 g/dL (31.0-37.0); MCV 93.4 fL (80.0-100.0); MEAN PLATELET VOLUME 10.7 fL (7.4-10.4); MONOCYTES 10.6 % (2-11); NEUTROPHILS 67.7 % (40-80); PLATELET COUNT 288 10x3/uL (130-400); RBC 4.37 10x6/uL (4.00-5.40); RDW 13.4 % (11.5-14.5); WBC 7.8 10x3/uL (4.8-10.8)
[2018-08-23 06:51] LABS: CALC OSMOLALITY 280 mosm/kg (275-300); CALCIUM 8.5 mg/dL (8.5-10.1); CARBON DIOXIDE 26.4 mmol/L (21.0-32.0); CHLORIDE - SERUM 105 mmol/L (98-107); CREATININE - SERUM 0.6 mg/dL (0.6-1.3); GLUCOSE 103 mg/dL (74-106); POTASSIUM - SERUM 3.5 mmol/L (3.5-5.1); SODIUM 142 mmol/L (136-145); UREA NITROGEN 8 mg/dL (7-18); eGFR NON AFRICAN AMERICAN > 90 mL/min (90-120)
[2018-08-23 07:57] VITALS: BP 111/63
--- NOTE | 2018-08-23 08:17 | NUR ---
SITTING UP IN BED EATING BREAKFAST. IS CONFUSED BUT PLEASANT. IS CONT OF B/B. CALL LIGHT IN REACH, BED IN LOWEST POSITION.
--- NOTE | 2018-08-23 12:09 | NUR ---
SITTING IN WC FOR LUNCH. STILL CONFUSED. IS SCHEDULED TO DC TODAY. CALL LIGHT IN REACH
--- NOTE | 2018-08-23 12:23 | NUR ---
PATIENT DISCHARGING TO [facility] TODAY. NO DME OR HOME HEALTH NEEDED AT THIS TIME. PATIENT CHOICE FORM AND IM[facility] FORMS SIGNED, COPY GIVEN AND REVEIWED WITH PATIENT DAUGHTER. FACILITY WILL MAKE FOLLOW UP APPOINTMENT WITH DR. JOHNSON PATIENT PCP. DISCHARGE INSTRUCTIONS WITH [employer] FAXED TO PCP AND [facility] AND REVIEWED WITH FAMILY.
--- NOTE | 2018-08-23 14:15 | NUR ---
REPORT CALLED TO LONGTERM. PT LEFT WITH CINDER CRUSHER OPERATOR. DTR IN ROOM WITH PT AND WILL GO TO [place] WITH PT.
== END 2018-08-23 14:15 | DRG 57 ==
LOC: D.REHAB 15:00
PROVIDERS: ADMIT Emergency Medicine; ATTEND Emergency Medicine
DX: I69.90 Unspecified sequelae of unspecified cerebrovascular disease (principal); R47.01 Aphasia; I73.9 Peripheral vascular disease, unspecified; G20 Parkinson's disease; F02.80 Dementia in other diseases classified elsewhere, unspecified severity, without behavioral disturbance, psychotic disturbance, mood disturbance, and anxiety; I50.9 Heart failure, unspecified; R53.1 Weakness; R47.1 Dysarthria and anarthria; I10 Essential (primary) hypertension

== ENCOUNTER 2018-11-13 12:42 | Emergency (ER) | payer MEDICARE, MEDICAID ==
[~2018-11-13] VITALS: Ht 152.4 cm; Wt 68.2 kg
[~2018-11-13 12:42] MED LIST changes: +ELIQUIS5 MG PO; +LIPITOR20 MG PO; +MEGACE40 MG PO; +OXYBUTYNIN CHLOR5 MG PO
[2018-11-13 12:47] VITALS: Ht 152.4 cm; Wt 68.2 kg
[2018-11-13] MEDS ORDERED: FUROSEMIDE20 MG PO (12:53)
[2018-11-13 13:34] LABS: APTT 25.9 SECONDS (22.8-39.4); INR 1.56 (0.85-1.17); PROTIME 18.1 SECONDS (11.6-15.0)
[2018-11-13 13:41] LABS: BASOPHILS 0.4 % (0-2); EOSINOPHILS 2.4 % (0-7); HEMATOCRIT 41.6 % (36.0-48.0); HEMOGLOBIN 13.8 g/dL (12-16); IMMATURE GRANULOCYTES 0.4 % (0-5); LYMPHOCYTES 29.1 % (15-50); MCH 29.6 pg (26.0-34.0); MCHC 33.2 g/dL (31.0-37.0); MCV 89.1 fL (80.0-100.0); MEAN PLATELET VOLUME 10.4 fL (7.4-10.4); MONOCYTES 11.6 % (2-11); NEUTROPHILS 56.1 % (40-80); RBC 4.67 10x6/uL (4.00-5.40); RDW 16.2 % (11.5-14.5)
[2018-11-13 13:43] LABS: PLATELET COUNT 158 10x3/uL (130-400)
[2018-11-13 13:59] LABS: APPEARANCE CLEAR (CLEAR); COLOR YELLOW (YELLOW); GLUCOSE NEGATIVE (NEGATIVE); KETONE NEGATIVE (NEGATIVE); NITRITE NEGATIVE (NEGATIVE); PROTEIN NEGATIVE (NEGATIVE)
[2018-11-13 14:00] LABS: BILIRUBIN NEGATIVE (NEGATIVE); UROBILINOGEN NORMAL (NORMAL)
[2018-11-13 14:02] LABS: ALBUMIN 3.1 g/dL (3.4-5.0); ALKALINE PHOSPHATASE 71 U/L (46-116); ALT (SGPT) 15 U/L (10-68); BILIRUBIN - TOTAL 0.33 mg/dL (0.2-1.3); CALC OSMOLALITY 285 mosm/kg (275-300); CALCIUM 8.6 mg/dL (8.5-10.1); CARBON DIOXIDE 28.9 mmol/L (21.0-32.0); CHLORIDE - SERUM 107 mmol/L (98-107); CREATININE - SERUM 0.7 mg/dL (0.6-1.3); GLUCOSE 100 mg/dL (74-106); POTASSIUM - SERUM 3.3 mmol/L (3.5-5.1); PROTEIN - SERUM 6.2 g/dL (6.4-8.2); SODIUM 144 mmol/L (136-145); UREA NITROGEN 10 mg/dL (7-18); eGFR NON AFRICAN AMERICAN 85 mL/min (90-120)
[2018-11-13 14:14] LABS: CKMB 0.4 U/L (0.0-3.6); CREATINE KINASE 32 UL (21-215); MAGNESIUM - SERUM 1.8 mg/dL (1.8-2.4); TROPONIN-I < 0.017 ng/mL (0.000-0.060)
[2018-11-13 15:54] VITALS: BP 118/64
== END 2018-11-13 15:55 ==
LOC: D.ER 12:42
PROVIDERS: Family Medicine
DX: G81.91 Hemiplegia, unspecified affecting right dominant side (principal)

== ENCOUNTER 2019-01-18 16:35 | Inpatient (IN) | payer MEDICARE, MEDICAID ==
[~2019-01-18] VITALS: Ht 152.4 cm; Wt 62.7 kg
[~2019-01-18 16:35] MED LIST changes: +FUROSEMIDE20 MG PO
[2019-01-18] MEDS ORDERED: ZOLOFT25 MG PO (16:44)
[2019-01-18] MEDS ORDERED: SENNA LAXATIVE8.6 MG PO (16:45)
[2019-01-18] MEDS ORDERED: BUSPAR5 MG PO (16:46)
[2019-01-18] MEDS ORDERED: TYLENOL ARTHRI650 MG PO (16:46)
[2019-01-18 17:38] LABS: BASOPHILS 0.3 % (0-2); EOSINOPHILS 0.8 % (0-7); HEMATOCRIT 41.3 % (36.0-48.0); HEMOGLOBIN 14.1 g/dL (12-16); IMMATURE GRANULOCYTES 0.4 % (0-5); LYMPHOCYTES 26.2 % (15-50); MCH 31.5 pg (26.0-34.0); MCHC 34.1 g/dL (31.0-37.0); MCV 92.4 fL (80.0-100.0); MEAN PLATELET VOLUME 10.8 fL (7.4-10.4); MONOCYTES 9.7 % (2-11); NEUTROPHILS 62.6 % (40-80); RBC 4.47 10x6/uL (4.00-5.40); RDW 15.2 % (11.5-14.5); WBC 7.1 10x3/uL (4.8-10.8)
[2019-01-18 17:55] LABS: PLATELET COUNT 256 10x3/uL (130-400)
[2019-01-18 17:56] LABS: ALBUMIN 3.5 g/dL (3.4-5.0); ALKALINE PHOSPHATASE 80 U/L (46-116); ALT (SGPT) 14 U/L (10-68); BILIRUBIN - TOTAL 0.45 mg/dL (0.2-1.3); CALC OSMOLALITY 281 mosm/kg (275-300); CALCIUM 8.8 mg/dL (8.5-10.1); CARBON DIOXIDE 23.6 mmol/L (21.0-32.0); CHLORIDE - SERUM 105 mmol/L (98-107); CREATININE - SERUM 0.6 mg/dL (0.6-1.3); GLUCOSE 123 mg/dL (74-106); POTASSIUM - SERUM 3.6 mmol/L (3.5-5.1); PROTEIN - SERUM 6.5 g/dL (6.4-8.2); SODIUM 140 mmol/L (136-145); UREA NITROGEN 18 mg/dL (7-18); eGFR NON AFRICAN AMERICAN > 90 mL/min (90-120)
[2019-01-18 18:00] LABS: CREATINE KINASE 56 UL (21-215); TROPONIN-I < 0.017 ng/mL (0.000-0.060)
[2019-01-18 18:06] LABS: APTT 28.6 SECONDS (22.8-39.4); INR 1.52 (0.85-1.17); PROTIME 17.7 SECONDS (11.6-15.0)
--- NOTE | 2019-01-18 18:26 | MORECARE ---
CASE MANAGEMENT DISCHARGE SUMMARY PATIENT: EMILIANO PATEL UNIT: [id number] ADM DATE: 01/18/19 AGE: 83 : 35 SEX: F ROOM/BED: D.2230 AUTHOR: CHATA RIVERA PHYSICIAN: REFERRING PHYSICIAN: MONSERRAT DUARTE DO DATE OF SERVICE: 01/18/19 Discharge Plan Patient Name: EMILIANO PATEL Facility: [facility]:[place] : 1935 Planned Disposition: Anticipated Discharge Date: Discharge Date: Expected LOS: Initial Reviewer: [email or web address] Initial Review Date: 01/18/2019 Generated: 01/18/19 7:26 pm Patient Name: EMILIANO PATEL Page [phone] at 1826 All edits/amendments must be made on the electronic document DICTATION DATE: 01/18/191825 DIVIDEND CLERK: HELLEN 01/18/191825 RPT#: [id number] DC DATE: STATUS: ADM IN [facility] [address] [place] [address] END OF REPORT
--- NOTE | 2019-01-18 18:57 | MORECARE ---
CASE MANAGEMENT DISCHARGE SUMMARY PATIENT: EMILIANO PATEL UNIT: [id number] ADM DATE: 01/18/19 AGE: 83 : 35 SEX: F ROOM/BED: D.2230 AUTHOR: CHATA RIVERA PHYSICIAN: REFERRING PHYSICIAN: MONSERRAT DUARTE DO DATE OF SERVICE: 01/18/19 Discharge Plan Patient Name: EMILIANO PATEL Facility: [facility] : 1935 Planned Disposition: Anticipated Discharge Date: Discharge Date: Expected LOS: Initial Reviewer: [email or web address] Initial Review Date: 01/18/2019 Generated: 01/18/19 7:56 pm DCP- Discharge Planning Updated by [email or web address]: Leeann Strong on 01/18/19 5:[address] CM met with patient/family to complete initial dc planning assessment. CM educated family on the CM role and verbal consent given by family to complete assessment. CM verified patient's address, phone number, and emergency contact phone numbers. Patient lives at [facility] and the staff is her primary caregiver. She requires total assistance with ADL's and medication management. At discharge patient plans to return to the nursing facility and family feels this is a safe discharge. Family denied any known discharge needs at this time. [facility] of discharge. PCP: Dr. Kaplan, [facility] DME: W[facility]C bound. Emergency contacts and POA: Qing Chau (dtr) #[phone], Norah Barajas (dtr) [phone]. CM request daughter to bring a copy of POA to the nursing floor. Family denies that patient has been hospitalized within past 30 days. [facility] nd [facility] be the [facility]. CM will continue to follow and will assist as needed with dc plans/needs PRN. Leeann Strong RN Last DP export: 01/18/19 5:26 p Patient Name: EMILIANO PATEL Page [phone] at 6247 All edits/amendments must be made on the electronic document DICTATION DATE: 08/24/19 1856 KOSHER BUTCHER: HELLEN 01/18/191855 RPT#: [id number] DC DATE: STATUS: ADM IN [facility] [address] [place] [address] END OF REPORT
--- NOTE | 2019-01-18 20:00 | NUR ---
RECEIVED PT TO FLOOR FROM ER VIA STRETCHER. LEFT LEG SHORTENED AND EXTERNALLY ROTATED. HOME MEDS FROM [facility]. HISTORY REVIEWED WITH FAMILY. TELEMETRY ON. PLACED PURWICK FOR INCONTINENCE. WILL CONTINUE TO MONITOR.
[2019-01-18] MEDS ORDERED: K-DUR20 MEQ PO (20:04)
[2019-01-18] MEDS ORDERED: MEGACE 20 MG TA20 MG PO (20:04)
[2019-01-18] MEDS ORDERED: LIPITOR40 MG PO (20:05)
[2019-01-18] MEDS ORDERED: METOPROLOL TART25 MG PO (20:05)
--- NOTE | 2019-01-18 21:30 | NUR ---
PT CRYING OUT. LOCALIZES PAIN LEFT HIP. GAVE MORPHINE 2 MG IV PUSH. SET UP AND APPLIED RICCI'S TRACTION. LEFT FOOT WAS COOL TO TOUCH BUT WARM NOW. PEDAL PULSE AND CAP REFILL WNL. BED ALARM ON AND CALL LIGHT IN REACH.
[2019-01-19] VITALS (8 sets, daily range): BP systolic 96–154; BP diastolic 49–86; BMI 24.2
[2019-01-19] MEDS ORDERED: MYLANTA / MAALO30 ML PO (01:46)
[2019-01-19] MEDS ORDERED: FUROSEMIDE20 MG PO (02:07)
[2019-01-19] MEDS ORDERED: PEPCID AC20 MG PO (02:44)
[2019-01-19 05:24] LABS: BASOPHILS 0.1 % (0-2); EOSINOPHILS 0.1 % (0-7); HEMATOCRIT 33.3 % (36.0-48.0); IMMATURE GRANULOCYTES 0.2 % (0-5); MCH 30.8 pg (26.0-34.0); MCV 93.3 fL (80.0-100.0); MEAN PLATELET VOLUME 11.6 fL (7.4-10.4); MONOCYTES 11.4 % (2-11); NEUTROPHILS 75.2 % (40-80); RDW 15.4 % (11.5-14.5); WBC 8.8 10x3/uL (4.8-10.8)
[2019-01-19 05:51] LABS: PLATELET COUNT 167 10x3/uL (130-400); RBC 3.57 10x6/uL (4.00-5.40)
--- NOTE | 2019-01-19 06:30 | NUR ---
PT HAS NOT VOIDED THIS SHIFT. BLADDER SCANNED FOR 715 ML. REPORTED TO JS CARABALLO. INSERTED 16FR ROBLERO CATH PER TELEPHONE ORDER. RECEIVED BACK 700 MLS [facility] URINE AND SENT SPECIMEN TO LAB. HIBICLENS BATH GIVEN. WILL CONTINUE TO MONITOR.
[2019-01-19 07:58] LABS: APPEARANCE HAZY (CLEAR); BILIRUBIN NEGATIVE (NEGATIVE); COLOR YELLOW (YELLOW); GLUCOSE NEGATIVE (NEGATIVE); KETONE SMALL mg/dL (NEGATIVE); NITRITE POSITIVE (NEGATIVE); PROTEIN NEGATIVE (NEGATIVE); UROBILINOGEN NORMAL (NORMAL)
[2019-01-19 07:59] LABS: RED CELLS - URINE 0-5 /hpf (0-5)
[2019-01-19 08:00] LABS: AMORPHOUS SEDIMENT <1+ /lpf (NONE SEEN); BACTERIA MANY /hpf (NONE SEEN); EPITHELIAL CELLS 0-5 /hpf (0-5)
--- NOTE | 2019-01-19 08:30 | NUR ---
PT RESTING QUIETLY IN BED, NO ACUTE DISTRESS NOTED AT THIS TIME. IV TO RIGHT WRIST WITH NS @ 50ML/HR INFUSING VIA PUMP. SITE WITHOUT REDNESS OR EDEMA. PT IS ALERT TO PERSON ONLY. F/C PATENT TO GRAVITY DRAINING YELLOW URINE. BUCKS TRACTION TO RIGHT LOWER EXTREMITY INTACT. PULSES PALPABLE AT THIS TIME. CL WITHIN REACH. CONTINUE POC.
--- NOTE | 2019-01-19 08:30 | NUR ---
OBTAINED PHONE CONSENT FOR PT UPCOMING SURGICAL PROCEDURE FROM LEILA ROSA. DISCUSSED PROCEDURE TO BE PERFORMED BY DR PATTON. MRS ROSA VOICED QUESTIONS, ANSWERED ABLE. DAUGHTER STATES THAT SHE AND HER SISTER WILL BE COMING TO THE HOSPITAL THIS AM.
--- NOTE | 2019-01-19 08:50 | NUR ---
PT TAKEN VIA BED TO PRE OP FOR UPCOMING SURGICAL PROCEDURE. NO ACUTE DISTRESS NOTED A THIS TIME. IV INTACT TO RIGHT WRIST
--- NOTE | 2019-01-19 09:50 | NUR ---
DR PATTON PRESENT AND ASSISTED ON POSITIONING OF PATIENT ON FRACTURE TABLE, ALL AREAS PADDED SECURED WITH NO IMPINGEMENTS, KASHIF.
--- NOTE | 2019-01-19 11:30 | NUR ---
PT RETURNED FROM SURGERY, WITH EYES CLOSED BUT OPENS WITH NAME CALLED. VITALS STARTED. IV REMAINS INTACT TO RIGHT WRIST. DRESSINGS X 3 TO LEFT LOWER EXTREMITY C/D/I. DOES NOT PRESENT WITH PAIN AT THIS MOMENT. CL WITHIN REACH. WILL CONTINUE TO MONITOR.
--- NOTE | 2019-01-19 14:20 | NUR ---
RECIEVED CALL FROM TELEMETRY, PT RUNNING 180 RVR, THEN SLOWED TO 150 UNCONTROLLED AFIB[address] BERGER, NEW ORDERS NOTED AT THIS TIME WITH ORDERS FOR CARDIOLOGY. 1445 DR BARKER CALLED, NEW ORDERS NOTED AT THIS TIME. LOVENOX 40MG TO BE ADMINISTERED SUBCUTANEOUS. 1450 CONTACTED SHIRA RN MED 2 TO GIVE REPORT FOR TRANSPORT TO THIS UNIT. 1509 ATTEMPTED TO CONTACT LEILA ROSA NO ANSWER. CONTACTED [facility] AND NOTIFIED OF PENDING TRANSFER
--- NOTE | 2019-01-19 20:00 | NUR ---
INITIAL ROUNDS AND ASSESSMENT COMPLETED. PT RESTING IN BED. RESPONDS TO VERBAL STIMULI WITH CONFUSION/YELLING/CRYING. PT IS DIFFICULT TO UNDERSTAND, SPEECH IS GARBLED AND SLURRED. LEFT HIP DRESSING C/D/I. IV TO RIGHT HAND WITH NS @ 50ML/HR AND CARDIZEM AT 5ML/HR. CURRENTLY STILL AFIB, RATES 90-110, BUT BP IS LOW SBP 98. NONLABORED RESPIRATIONS ON ROOM AIR. NO FAMILY PRESENT. CPOC.
--- NOTE | 2019-01-19 22:35 | NUR ---
BEDTIME ORAL MEDS HELD. PT CONFUSED/YELLING AND CANNOT FOLLOW DIRECTIONS TO TAKE MEDS. WHEN ASKED IF SHE IS HURTING, SHE JUST CRIES AND RAMBLES INCOHERENTLY.
--- NOTE | 2019-01-19 22:35 | NUR ---
PT CONTINUING TO CRY OUT AND BE VERBALLY DISRUPTIVE. ADMINISTERED MORPHINE 1MG SIVP FOR PAIN TO SEE IF THAT CALMS PATIENT DOWN, IMPROVES LEVEL OF COMFORT. IV CARDIZEM INFUSING AT 5ML AND PT IS AFIB 90-110. SBP < 100. WILL MONITOR.
[2019-01-20] VITALS: BP 102/48
--- NOTE | 2019-01-20 03:52 | NUR ---
PT HAS SLEPT SINCE RECIEVING THE IV PAIN MEDS. 92/CAF PER TELEMETRY. IVF INFUSING. FALL PRECAUTIONS IN PLACE. CPOC.
[2019-01-20 04:00] VITALS: BP 108/51
[2019-01-20 05:17] LABS: BASOPHILS 0 % (0-2); EOSINOPHILS 0 % (0-7); IMMATURE GRANULOCYTES 0.2 % (0-5); LYMPHOCYTES 9.8 % (15-50); MCH 30.4 pg (26.0-34.0); MCHC 32.4 g/dL (31.0-37.0); MCV 93.6 fL (80.0-100.0); MEAN PLATELET VOLUME 10.4 fL (7.4-10.4); MONOCYTES 11.2 % (2-11); NEUTROPHILS 78.8 % (40-80); RDW 15.6 % (11.5-14.5); WBC 9.5 10x3/uL (4.8-10.8)
[2019-01-20 05:23] LABS: HEMATOCRIT 26.2 % (36.0-48.0); HEMOGLOBIN 8.5 g/dL (12-16); PLATELET COUNT 218 10x3/uL (130-400)
--- NOTE | 2019-01-20 05:41 | NUR ---
INCREASED CARDIZEM UP TO 10ML/HR DUE TO INCREASE IN RATE TO 130-150. PT IS NOW VERY AWAKE AND RESTLESS. CALLING OUT. TRYING TO TAKE OFF HER GOWN. SPOKE WITH PATIENT UNTIL SHE WAS CALM AND SHE WAS STILL UCAF 135. PT SAYING SHE IS NOT HURTING BUT SHE IS PULLING AT HER CATHETER AND RAMBLING INCOHERENTLY WHEN STAFF STEPS OUT OF ROOM.
[2019-01-20 05:42] LABS: CALC OSMOLALITY 281 mosm/kg (275-300); CARBON DIOXIDE 25.4 mmol/L (21.0-32.0); CHLORIDE - SERUM 106 mmol/L (98-107); CREATININE - SERUM 0.6 mg/dL (0.6-1.3); GLUCOSE 166 mg/dL (74-106); POTASSIUM - SERUM 3.7 mmol/L (3.5-5.1); SODIUM 139 mmol/L (136-145); UREA NITROGEN 12 mg/dL (7-18); eGFR NON AFRICAN AMERICAN > 90 mL/min (90-120)
--- NOTE | 2019-01-20 06:15 | NUR ---
SPOKE WITH LAB TO RUN UA CULTURE ON URINE COLLECTED YESTERDAY.
--- NOTE | 2019-01-20 07:35 | NUR ---
ASSESSMENT DONE. WITHOUT DISTRESS NOTED
[2019-01-20 08:33] VITALS: BP 120/52
--- NOTE | 2019-01-20 08:56 | MORECARE ---
CASE MANAGEMENT DISCHARGE SUMMARY PATIENT: EMILIANO PATEL UNIT: [id number] ADM DATE: 01/18/19 AGE: 83 : 35 SEX: F ROOM/BED: D.3407 AUTHOR: CHATA RIVERA PHYSICIAN: REFERRING PHYSICIAN: MONSERRAT DUARTE DO DATE OF SERVICE: 01/20/19 Discharge Plan Patient Name: EMILIANO PATEL Facility: [facility] : 1935 Planned Disposition: Nursing Facility NATHANAEL Cert Anticipated Discharge Date: Discharge Date: Expected LOS: Initial Reviewer: [email or web address] Initial Review Date: 01/18/2019 Generated: 01/20/19 9:55 am DCP- Discharge Planning Updated by [email or web address]: Leeann Strong on 01/18/19 5:[address] CM met with patient/family to complete initial dc planning assessment. CM educated family on the CM role and verbal consent given by family to complete assessment. CM verified patient's address, phone number, and emergency contact phone numbers. Patient lives at [facility] and the staff is her primary caregiver. She requires total assistance with ADL's and medication management. At discharge patient plans to return to the nursing facility and family feels this is a safe discharge. Family denied any known discharge needs at this time. [facility] van will transport patient to the facility at time of discharge. PCP: Dr. Kaplan, Pharmacy: [facility] provides medications. DME: W/C bound. Emergency contacts and POA: Qing Chau (dtr) #[phone], Norah Barajas (dtr) [phone]. CM request daughter to bring a copy of POA to the nursing floor. Family denies that patient has been hospitalized within past 30 days. Transportation at dc will be the [facility] van. CM will continue to follow and will assist as needed with dc plans/needs PRN. Leeann Strong RN Last DP export: 01/18/19 5:57 p Patient Name: EMILIANO PATEL Page [id number] at 0856 All edits/amendments must be made on the electronic document DICTATION DATE: 01/20/19854 GEOGRAPHY HEAD: HELLEN 01/20/19854 RPT#: [id number] DC DATE: STATUS: ADM IN [facility] [address] [place] [address] END OF REPORT
--- NOTE | 2019-01-20 10:29 | NUR ---
I have reviewed this patient and I concur with the Shift Assessment completed by the Licensed Practical Nurse today this shift.
--- NOTE | 2019-01-20 11:49 | NUR ---
Rehab Note- Acute Inpatient Rehab Prescreen order received. The patient is a LTC resident at [facility] with severe dementia- wpuld recommend dc back there for therapy. Spoke with ANYI Mcbride. Thank you for this referral! Mita Soto RN Clinical Liaison, [facility] Rehab
[2019-01-20 11:56] VITALS: BP 95/35
[2019-01-20 12:03] LABS: % SATURATION 17 % (15-55); IRON 33 ug/dl (35-150); TOTAL IRON BIND CAPACITY 186 ug/dl (260-445); UNSAT IRON BIND CAPACITY 153 ug/dl (150-375)
[2019-01-20 15:31] VITALS: BP 89/53
--- NOTE | 2019-01-20 18:33 | NUR ---
WITHOUT CHANGES NOT AT THIS TIME DAUGHTER AT SIDE
--- NOTE | 2019-01-20 19:00 | NUR ---
PATIENT IS RESTING COMFORTABLY IN BED. RESPIRATIONS ARE EVEN AND UNLABORED. PATIENT IS AAO TO NAME ONLY. FAMILY AT BEDSIDE ANSWERED THERE QUESTIONS. NO S/S OF DISTRESS. NO C/O PAIN. CALL LIGHT WITHIN REACH. WILL CPOC.
[2019-01-20 20:00] VITALS: BP 100/40
[2019-01-21] VITALS: BP 106/40
[2019-01-21 04:00] VITALS: BP 97/42
[2019-01-21 05:22] LABS: BASOPHILS 0.1 % (0-2); EOSINOPHILS 0 % (0-7); HEMATOCRIT 23.3 % (36.0-48.0); HEMOGLOBIN 7.7 g/dL (12-16); IMMATURE GRANULOCYTES 0.2 % (0-5); LYMPHOCYTES 12.4 % (15-50); MCH 31.3 pg (26.0-34.0); MCV 94.7 fL (80.0-100.0); MEAN PLATELET VOLUME 10.5 fL (7.4-10.4); MONOCYTES 13.3 % (2-11); PLATELET COUNT 209 10x3/uL (130-400); RBC 2.46 10x6/uL (4.00-5.40); RDW 15.3 % (11.5-14.5); WBC 8.5 10x3/uL (4.8-10.8)
[2019-01-21 05:33] LABS: CALC OSMOLALITY 281 mosm/kg (275-300); CALCIUM 7.9 mg/dL (8.5-10.1); CARBON DIOXIDE 28.8 mmol/L (21.0-32.0); CHLORIDE - SERUM 106 mmol/L (98-107); CREATININE - SERUM 0.7 mg/dL (0.6-1.3); POTASSIUM - SERUM 3.2 mmol/L (3.5-5.1); SODIUM 142 mmol/L (136-145); UREA NITROGEN 11 mg/dL (7-18); eGFR NON AFRICAN AMERICAN 85 mL/min (90-120)
[2019-01-21 05:36] LABS: GLUCOSE 100 mg/dL (74-106)
--- NOTE | 2019-01-21 07:18 | NUR ---
REPORT RECEIVED. WILL CONTINUE WITH POC. PT CURRENTLY LYING ON RIGHT SIDE. CALL LIGHT W/I REACH. PT IS RESTING AT THIS MOMENT. RR EVEN AND UNLABORED ON RA. NS INFUSING @50ML/HR VIA R.FOR PIV. ROBLERO IN PLACE AND DRAINING URINE. PT DENIES ANY NEEDS AT THIS TIME. NO S/S OF DISTRESS NOTED. WILL CTM.
[2019-01-21 08:31] VITALS: BP 100/58
--- NOTE | 2019-01-21 08:35 | NUR ---
ATTEMPTED TO ASSIST PT WITH BREAKFAST. SHE STATED THAT SHE DID NOT WANT TO EAT. WILL CTM.
--- NOTE | 2019-01-21 10:11 | NUR ---
BEGAN TRANSFUSION ON FIRST UNIT OF BLOOD. VSS AND WNL. WILL CTM.
--- NOTE | 2019-01-21 11:10 | CN ---
PATIENT NAME:EMILIANO HUGHES MEDICAL RECORD: [id number] : 35 LOCATION:. D.2118 ADMIT DATE: 01/18/19 ACCOUNT: [id number] CONSULTING PHYSICIAN: JULIO BARKER MD REFERRING PHYSICIAN: MONSERRAT DUARTE DO DATE OF CONSULTATION: 01/20/2019 CARDIAC CONSULTATION ADMISSION DIAGNOSES: 1. Atrial fibrillation. 2. Tachycardia. 3. Coronary artery disease. 4. Hyperlipidemia. 5. Anemia. 6. Status post hip surgery. HISTORY OF PRESENT ILLNESS: Mrs. Hughes presents with a hip fracture, underwent hip surgery. She has chronic atrial fibrillation. After the surgery, her heart rate increased to the 180s. She was previously on digoxin and Lopressor. These were held during the preop and postop phase, she was placed on a Cardizem drip. She is on Eliquis. The atrial fibrillation is not new. She has chronic atrial fibrillation. Her heart rate on the diltiazem drip is now anywhere from 90s to 130s. She was restarted on her digoxin yesterday and Lopressor yesterday. She did not have any chest pain or chest discomfort. Troponins are normal. Her EKG is with no ST-T changes with the tachycardia. She is anemic with a hemoglobin in the 8-9 range. PHYSICAL EXAMINATION: CONSTITUTIONAL/GENERAL APPEARANCE: Well nourished, well developed, appears stated age. EYES: Lids and conjunctivae noninjected. No discharge. No pallor. ENT: Lips within normal limit. No cyanosis. No pallor. NECK: Carotid arteries, bilateral normal upstroke. No bruits. No thrills. No jugular venous pressure or distention. CERVICAL LYMPH NODES: Nontender. Nonenlarged. THYROID: Not enlarged. No nodules. CARDIOVASCULAR: Irregularly irregular with atrial fibrillation. RESPIRATORY: Respiratory effort, unlabored. Normal curvature. No thoracic deformity. No chest wall tenderness. Percussion, resonant. Auscultation, clear. No wheezes, no rales, no rhonchi. ABDOMEN: Soft, nondistended, nontender. No abdominal pain, no vomiting and normal appetite. MUSCULOSKELETAL: No joint tenderness, normal gait, normal tone. SKIN: Warm and dry. OVERALL IMPRESSION: Atrial fibrillation with rapid ventricular response secondary to the cessation of her metoprolol and digoxin during the preop, periop, and postoperative phase. We will give her 0.5 mg IV digoxin times 1. She has restarted her oral digoxin and her metoprolol. These rate controlled her in the past with resolution of pain from the surgery, the anemia, and restarting the medications we should be able to wean the diltiazem drip. At this time, no other cardiac treatment should be necessary. TRANSINT:[id number] Voice Confirmation ID: [id number] DOCUMENT ID: [id number] CONSULT REPORT [id number] EMILIANO HUGHES JEFFREY MD at 1110 CC: [id number] DICTATION DATE: 01/20/19901 PICTURE FRAMES INSPECTOR: 01/20/19918 ADM IN [facility] [address] [place] [address]
--- NOTE | 2019-01-21 11:10 | EC ---
PATIENT:EMILIANO PATEL DATE OF SERVICE: 01/18/19 SEX: F MEDICAL RECORD: [id number] DATE OF : [birth year] LOCATION:D.M2 D.211 AGE OF PATIENT: 83 ADMISSION DATE: 01/18/19 REFERRING PHYSICIAN: INTERPRETING PHYSICIAN: JULIO LEIGH MD ECHOCARDIOGRAM REPORT ECHO CHARGES 4 ECHO COMPLETE Date: 01/20/19 CLINICAL DIAGNOSIS: AFIB ECHOCARDIOGRAPHIC MEASUREMENTS (adult normal given) AC root (d.<3.7cm) 2.0 cm LV Septum d (<1.2 cm> 1.3 cm Valve Excursion 1.0 cm LV Septum (systole) 1.6 cm Left Atria (s.<4.0cm> 4.0 cm LVPW d(<1.2cm) 1.1 cm RV (d.<2.3cm) 2.5 cm LVPW (sytole) 1.2 cm LV diastole(<5.6CM) 3.7 cm MV E-F(>70mm/sec) cm LV systole 2.6 cm LVOT Diameter 1.8 cm MV exc.(>10mm) cm Est.ejection fraction (50-75%) % DOPPLER: LVIT cm/sec A 28 cm/sec E 90 cm/sec LA cm/sec RVSP 41.4 mmHg LVOT 142 cm/sec AOP1/2T m/s Asc. Ao 203 cm/sec RVOT 113 cm/sec RA cm/sec PA 132 cm/sec AV Gradient Peak 16.6 mmHg AV Mean 7.6 mmHg AV Area 2.0 cm MV Gradient Peak 5.4 mmHg MV Mean 2.2 mmHg MV Area cm COMMENTS: Miner Pick: Henna PARR Key Sander: 1 Dr. Leigh TAPE# PACS Pericardial Effusion N DATE OF SERVICE: 01/20/2019 PROCEDURE: Echocardiogram. FINDINGS: 1. Left ventricular chamber size is within normal limits. Left ventricular systolic function is normal. Overall ejection fraction estimated at 55%. 2. Left atrium, right atrium, and right ventricular chamber sizes are within normal limits. 3. Valvular structures have normal structure and motion. ECHOCARDIOGRAM REPORT [id number] EMILIANO PATEL 4. Doppler interrogation reveals mild tricuspid regurgitation, no other valvular insufficiency or stenosis. Pulmonary systolic pressure is estimated at 42 mmHg. 5. No evidence of pericardial effusion or left ventricular thrombus. TRANSINT:[id number] Voice Confirmation ID: [id number] DOCUMENT ID: [id number] JULIO LEIGH MD at 1110 CC: [id number] DICTATION DATE: 01/20/19 1140 CAB SUPERVISOR: 01/20/19 1153 ADM IN [facility] [address] [place] [address]
[2019-01-21 11:49] VITALS: BP 107/50
--- NOTE | 2019-01-21 12:41 | NUR ---
BEGAN SECOND TRANFUSION OF BLOOD. VSS AND WNL. WILL CTM.
--- NOTE | 2019-01-21 13:07 | NUR ---
I have reviewed this patient and I concur with the Shift Assessment completed by the Licensed Practical Nurse today this shift.
--- NOTE | 2019-01-21 15:47 | NUR ---
SECOND UNIT OF BLOOD FINISHED TRANFUSING. PT IS CONFUSED TO TIME, PLACE, PERSON, AND SITUATION AND MUMBLES WORDS. VSS AND WNL. FALL PRECAUTIONS IN PLACE. WILL CTM.
[2019-01-21 20:00] VITALS: BP 154/82
[2019-01-22] VITALS: BP 113/45
[2019-01-22 04:00] VITALS: BP 121/51
[2019-01-22 06:27] LABS: BASOPHILS 0 % (0-2); EOSINOPHILS 0.5 % (0-7); IMMATURE GRANULOCYTES 0.2 % (0-5); LYMPHOCYTES 10.9 % (15-50); MCH 31.1 pg (26.0-34.0); MCHC 34.3 g/dL (31.0-37.0); MEAN PLATELET VOLUME 10.9 fL (7.4-10.4); MONOCYTES 13.8 % (2-11); NEUTROPHILS 74.6 % (40-80); PLATELET COUNT 184 10x3/uL (130-400); RDW 16.2 % (11.5-14.5); WBC 8.3 10x3/uL (4.8-10.8)
[2019-01-22 06:44] LABS: HEMATOCRIT 31.8 % (36.0-48.0); HEMOGLOBIN 10.9 g/dL (12-16); MCV 90.9 fL (80.0-100.0)
[2019-01-22 06:46] LABS: CALC OSMOLALITY 280 mosm/kg (275-300); CALCIUM 7.9 mg/dL (8.5-10.1); CARBON DIOXIDE 29.4 mmol/L (21.0-32.0); CHLORIDE - SERUM 107 mmol/L (98-107); CREATININE - SERUM 0.5 mg/dL (0.6-1.3); GLUCOSE 94 mg/dL (74-106); POTASSIUM - SERUM 3.2 mmol/L (3.5-5.1); SODIUM 142 mmol/L (136-145); UREA NITROGEN 6 mg/dL (7-18); eGFR NON AFRICAN AMERICAN > 90 mL/min (90-120)
[2019-01-22 09:07] VITALS: BP 120/58
--- NOTE | 2019-01-22 09:13 | NUR ---
PT AT BS TO SEE AND TX. WILL CONT. PLAN OF CARE.
[2019-01-22 13:02] VITALS: BP 116/57
[2019-01-22 13:47] VITALS: BMI 26.9
--- NOTE | 2019-01-22 14:12 | NUR ---
OT NOTE: UNABLE TO TOLERATE BED MOB SECONDARY TO PAIN. WILL ATTEMPT LATER. RUT SANTO, OTR/L
--- NOTE | 2019-01-22 16:55 | MORECARE ---
CASE MANAGEMENT DISCHARGE SUMMARY PATIENT: EMILIANO PATEL UNIT: [id number] ADM DATE: 01/18/19 AGE: 83 : 35 SEX: F ROOM/BED: D.5944 AUTHOR: CHATA RIVERA PHYSICIAN: REFERRING PHYSICIAN: MONSERRAT DUARTE DO DATE OF SERVICE: 01/22/19 Discharge Plan Patient Name: EMILIANO PATEL Facility: [facility]:[place] : 1935 Planned Disposition: Nursing Facility [facility] Cert Anticipated Discharge Date: Discharge Date: Expected LOS: Initial Reviewer: [id number] Initial Review Date: 01/18/2019 Generated: 01/22/19 5:55 pm DCP- Discharge Planning Updated by [id number]: Leeann Strong on 01/18/19 5:[address] CM met with patient/family to complete initial dc planning assessment. CM educated family on the CM role and verbal consent given by family to complete assessment. CM verified patient's address, phone number, and emergency contact phone numbers. Patient lives at [facility] and the staff is her primary caregiver. She requires total assistance with ADL's and medication management. At discharge patient plans to return to the nursing facility and family feels this is a safe discharge. Family denied any known discharge needs at this time. [place] van will transport patient to the facility at time of discharge. PCP: Dr. Kaplan, Pharmacy: [place] provides medications. DME: W/C bound. Emergency contacts and POA: Qing Chau (dtr) #[phone], Norah Barajas (dtr) [phone]. CM request daughter to bring a copy of POA to the nursing floor. Family denies that patient has been hospitalized within past 30 days. Transportation at dc will be the [place] van. CM will continue to follow and will assist as needed with dc plans/needs PRN. Leeann Strong RN External Providers External Provider: [facility] Next Contact Date: 01/22/2019 Service Request Date: Service Type: Resolution: Reviewer: Comments: Coverage Notice Reviewer: [id number] - Lev Lima Notice Issued Date-Time: 01/22/2019 14:00 Notice Type: Patient Choice Letter Notice Delivered To: Patient Relationship to Patient: Bench Hand Name: Delivery Method: PHONE - Phone Yoana Days: Prior Verbal Notification: Recipient Understood Notice: Yes Recipient Signature: Yes Med Rec Note Co-signed by Attending: Coverage Notice Comment: [facility] Last DP export: 01/20/19 7:56 a Patient Name: EMILIANO PATEL Page 37444 at 1655 All edits/amendments must be made on the electronic document DICTATION DATE: 01/22/191654 INFORMATICS PHYSICIAN: HELLEN 01/22/191654 RPT#: [id number] DC DATE: STATUS: ADM IN [facility] [address] [place] [address] END OF REPORT
--- NOTE | 2019-01-22 17:12 | MORECARE ---
CASE MANAGEMENT DISCHARGE SUMMARY PATIENT: EMILIANO PATEL UNIT: [id number] ADM DATE: 01/18/19 AGE: 83 : 35 SEX: F ROOM/BED: D.1332 AUTHOR: MIGUEL,DOC PHYSICIAN: REFERRING PHYSICIAN: MONSERRAT DUARTE DO DATE OF SERVICE: 01/22/19 Discharge Plan Patient Name: EMILIANO PATEL Facility: [facility]:[place] : 1935 Planned Disposition: Nursing Facility [facility] Cert Anticipated Discharge Date: Discharge Date: Expected LOS: Initial Reviewer: [id number] Initial Review Date: 01/18/2019 Generated: 01/22/19 6:12 pm Comments DCP- Discharge Planning Updated by [id number]: Lev Lima on 01/22/19 4:[address] Patient Name: EMILIANO PATEL Encounter No: [id number] : 1935 Primary Insurance: HU[employer] CHOICE PPO MCR ADVANT Anticipated DC Date: Planned Disposition: Nursing Facility [facility] Cert External Planned Provider: [facility], MEDICARE REHAB BED DCP follow-up note: CM RECEIVED PHONE CALL FORM QING CHAU, DAUGHTER, , WHO INFORMED CM THAT PT LIVES AT [facility] IN [place] [facility]; SHE PLANS FOR PT TO RETURN TO [place] AND HAS DISCUSSED WITH NICOLA AT [place] PT RETURNING TO SKILLED REHAB IF INSURANCE WILL APPROVE. QING ASKED THAT PAPERWORK BE FAXED FOR INSURANCE TO BE CONTACTED TO REQUEST INSURANCE AUTHORIZATION. CM COMPLETED CONSENT FORM FOR [place]. [facility], , LEFT MESSAGE FOR [facility]. CM FAXED REFERRAL TO [place] AT [phone]. [place] TO SUBMIT FOR AUTHORIZATION TO INSURANCE FOR PT TO RETURN TO SKILLED BED. FOR DISCHARGE, FAX DISCHARGE INFORMATION TO [place] AT [phone]. NURSE REPORT TO BE CALLED TO [place] AT [phone]. [place] TO ARRANGE VAN TRANSPORT. Lev Lima, CASE MANAGEMENT DCP- Discharge Planning Updated by [id number]: Leeann Strong on 01/18/19 5:[address] CM met with patient/family to complete initial dc planning assessment. CM educated family on the CM role and verbal consent given by family to complete assessment. CM verified patient's address, phone number, and emergency contact phone numbers. Patient lives at [facility] and the staff is her primary caregiver. She requires total assistance with ADL's and medication management. At discharge patient plans to return to the nursing facility and family feels this is a safe discharge. Family denied any known discharge needs at this time. [place] van will transport patient to the facility at time of discharge. PCP: Dr. Kaplan, Pharmacy: [place] provides medications. DME: W/C bound. Emergency contacts and POA: Qing Chau (dtr) #[phone], Norah Saucedotle (dtr) [phone]. CM request daughter to bring a copy of POA to the nursing floor. Family denies that patient has been hospitalized within past 30 days. Transportation at [place] will be the [place] van. CM will continue to follow and will assist as needed with dc plans/needs PRN. Leeann Strong RN Coverage Notice Reviewer: [id number] - Lev Lima Notice Issued Date-Time: 01/22/2019 14:00 Notice Type: Patient Choice Letter Notice Delivered To: Patient Relationship to Patient: Decorator Inspector Name: Delivery Method: PHONE - Phone Yoana Days: Prior Verbal Notification: Recipient Understood Notice: Yes Recipient Signature: Yes Med Rec Note Co-signed by Attending: Coverage Notice Comment: [facility] Last DP export: 01/22/19 3:55 p Patient Name: EMILIANO PATEL Page 62087 at 1712 All edits/amendments must be made on the electronic document DICTATION DATE: 01/22/191711 SPEECH LANGUAGE PATHOLOGY ASSISTANT: HELLEN 01/22/191711 RPT#: [id number] DC DATE: STATUS: ADM IN [facility] [address] [place] [address] END OF REPORT
[2019-01-22 17:56] VITALS: BP 126/64
--- NOTE | 2019-01-22 18:17 | NUR ---
IV RESTARTED TO RIGHT FA WITH 22 GAUGE CATH. LINE IS PATENT.
--- NOTE | 2019-01-22 19:00 | NUR ---
BEDSIDE REPORT RECEIEVED. PATIENT IS ALERT AND ORIENTED TO PERSON ONLY. PATIENT SPEECH IS GARBLED. RESPIRATIONS ARE EVEN AND UNLABORED. NO S/S OF DISTRESS. NO C/O PAIN. CALL LIGHT WITHIN REACH. WILL CPOC.
[2019-01-22 20:22] VITALS: BP 128/66
[2019-01-23 04:00] VITALS: BP 141/62
[2019-01-23 06:40] LABS: BASOPHILS 0.1 % (0-2); HEMATOCRIT 32.8 % (36.0-48.0); HEMOGLOBIN 11.1 g/dL (12-16); IMMATURE GRANULOCYTES 0.4 % (0-5); LYMPHOCYTES 11.9 % (15-50); MCH 30.4 pg (26.0-34.0); MCHC 33.8 g/dL (31.0-37.0); MCV 89.9 fL (80.0-100.0); MEAN PLATELET VOLUME 10.7 fL (7.4-10.4); MONOCYTES 11.5 % (2-11); NEUTROPHILS 75.1 % (40-80); PLATELET COUNT 207 10x3/uL (130-400); RBC 3.65 10x6/uL (4.00-5.40); RDW 15.7 % (11.5-14.5); WBC 8.1 10x3/uL (4.8-10.8)
[2019-01-23 07:08] LABS: CALC OSMOLALITY 277 mosm/kg (275-300); CALCIUM 7.9 mg/dL (8.5-10.1); CARBON DIOXIDE 25.9 mmol/L (21.0-32.0); CHLORIDE - SERUM 106 mmol/L (98-107); CREATININE - SERUM 0.4 mg/dL (0.6-1.3); GLUCOSE 96 mg/dL (74-106); SODIUM 141 mmol/L (136-145); UREA NITROGEN 5 mg/dL (7-18); eGFR NON AFRICAN AMERICAN > 90 mL/min (90-120)
--- NOTE | 2019-01-23 07:15 | NUR ---
RECEIVED PT IN BED EYES CLOSED RESP UNLABORED SKIN W/D NAD NOTED
[2019-01-23 07:57] LABS: POTASSIUM - SERUM 2.9 mmol/L (3.5-5.1)
--- NOTE | 2019-01-23 09:01 | MORECARE ---
CASE MANAGEMENT DISCHARGE SUMMARY PATIENT: EMILIANO PATEL UNIT: [id number] ADM DATE: 01/18/19 AGE: 83 : 35 SEX: F ROOM/BED: D.8272 AUTHOR: MIGUEL,DOC PHYSICIAN: REFERRING PHYSICIAN: MONSERRAT DUARTE DO DATE OF SERVICE: 01/23/19 Discharge Plan Patient Name: EMILIANO PATEL Facility: [facility]:[place] : 1935 Planned Disposition: Nursing Facility [facility] Cert Anticipated Discharge Date: Discharge Date: Expected LOS: Initial Reviewer: [id number] Initial Review Date: 01/18/2019 Generated: 01/23/19 10:01 am Comments DCP- Discharge Planning Updated by [email or web address]: Lev Lima on 01/22/19 4:[address] Patient Name: EMILIANO PATEL Encounter No: [id number] : 1935 Primary Insurance: HU[employer] CHOICE PPO MCR ADVANT Anticipated DC Date: Planned Disposition: Nursing Facility [facility] Cert External Planned Provider: [facility], MEDICARE REHAB BED DCP follow-up note: CM RECEIVED PHONE CALL FORM QING CHAU, DAUGHTER, , WHO INFORMED CM THAT PT LIVES AT [facility] IN [facility]; SHE PLANS FOR PT TO RETURN TO [place] AND HAS DISCUSSED WITH NICOLA AT [place] PT RETURNING TO SKILLED REHAB IF INSURANCE WILL APPROVE. QING ASKED THAT PAPERWORK BE FAXED FOR INSURANCE TO BE CONTACTED TO REQUEST INSURANCE AUTHORIZATION. CM COMPLETED CONSENT FORM FOR [place]. [facility], , LEFT MESSAGE FOR NEO. CM FAXED REFERRAL TO [place] AT [phone]. [place] TO SUBMIT FOR AUTHORIZATION TO INSURANCE FOR PT TO RETURN TO SKILLED BED. FOR DISCHARGE, FAX DISCHARGE INFORMATION TO [place] AT [phone]. NURSE REPORT TO BE CALLED TO [place] AT [phone]. [place] TO ARRANGE VAN TRANSPORT. Lev Lima, CASE MANAGEMENT DCP- Discharge Planning Updated by [id number]: Leeann Strong on 01/18/19 5:[address] CM met with patient/family to complete initial dc planning assessment. CM educated family on the CM role and verbal consent given by family to complete assessment. CM verified patient's address, phone number, and emergency contact phone numbers. Patient lives at [facility] and the staff is her primary caregiver. She requires total assistance with ADL's and medication management. At discharge patient plans to return to the nursing facility and family feels this is a safe discharge. Family denied any known discharge needs at this time. [place] van will transport patient to the facility at time of discharge. PCP: Dr. Kaplan, Pharmacy: [place] provides medications. DME: W/C bound. Emergency contacts and POA: Qing Chau (dtr) #[phone], Norah Jenn (dtr) [phone]. CM request daughter to bring a copy of POA to the nursing floor. Family denies that patient has been hospitalized within past 30 days. Transportation at [place] will be the [place] van. CM will continue to follow and will assist as needed with dc plans/needs PRN. Leeann Strong RN Coverage Notice Reviewer: [id number] - Lev Lima Notice Issued Date-Time: 01/22/2019 14:00 Notice Type: Patient Choice Letter Notice Delivered To: Patient Relationship to Patient: Auto Service Mechanic Name: Delivery Method: PHONE - Phone Yoana Days: Prior Verbal Notification: Recipient Understood Notice: Yes Recipient Signature: Yes Med Rec Note Co-signed by Attending: Coverage Notice Comment: [facility] Last DP export: 01/22/19 4:12 p Patient Name: EMILIANO PATEL Page 22461 at 0901 All edits/amendments must be made on the electronic document DICTATION DATE: 01/23/19900 GIS APPLICATION DEVELOPER: HELLEN 01/23/19900 RPT#: [id number] DC DATE: STATUS: ADM IN [facility] [address] [place] [address] END OF REPORT
[2019-01-23 09:55] VITALS: BP 131/57
--- NOTE | 2019-01-23 10:52 | NUR ---
UNABL TO GET PT TO TAKE MEDS PT IS CONFUSED AND WHEN ATTEMPTING TO GIVEN MEDS SHE SPITS THEM OUT
[2019-01-23 12:45] VITALS: BP 120/77
--- NOTE | 2019-01-23 18:04 | MORECARE ---
CASE MANAGEMENT DISCHARGE SUMMARY PATIENT: EMILIANO PATEL UNIT: [id number] ADM DATE: 01/18/19 AGE: 83 : 35 SEX: F ROOM/BED: D.2866 AUTHOR: MIGUEL,CHATA PHYSICIAN: REFERRING PHYSICIAN: MONSERRAT DUARTE DO DATE OF SERVICE: 01/23/19 Discharge Plan Patient Name: EMILIANO PATEL Facility: [facility]:[place] : 1935 Planned Disposition: Nursing Facility [facility] Cert Anticipated Discharge Date: Discharge Date: Expected LOS: Initial Reviewer: [id number] Initial Review Date: 01/18/2019 Generated: 01/23/19 7:04 pm Comments DCP- Discharge Planning Updated by [id number]: Lev Lima on 01/23/19 4:[address] Patient Name: EMILIANO PATEL Encounter No: [id number] : 1935 Primary Insurance: HUMANA CHOICE PPO MCR ADVANT Anticipated DC Date: Planned Disposition: Nursing Facility [facility] Cert External Planned Provider:[facility] DISCHARGE PLANNING NOTE: CM RECEIVED REQUEST FROM DAUGHTER, QING CHAU, , FOR PT TO HAVE SOMETHING FOR AGGITATION AND ANXIETY. CM NOTIFIED BEDSIDE NURSE. CM WAITING AUTHORIZATION FROM INSURANCE FOR PT TO RETURN TO SKILLED BED. FOR DISCHARGE, FAX DISCHARGE INFORMATION TO [facility] AT [phone]. NURSE REPORT TO BE CALLED TO [facility] AT [phone]. [facility] TO ARRANGE VAN TRANSPORT. Lev Lima, KRISTI MARQUEZ DCP- Discharge Planning Updated by [email or web address]: Lev Lima on 01/22/19 4:[address] Patient Name: EMILIANO PATEL Encounter No: [id number] : 1935 Primary Insurance: HUMANA CHOICE PPO MCR ADVANT Anticipated DC Date: Planned Disposition: Nursing Facility [facility] Cert External Planned Provider: [facility], MEDICARE REHAB BED DCP follow-up note: CM RECEIVED PHONE CALL FORM QING CHAU, DAUGHTER, , WHO INFORMED CM THAT PT LIVES AT [facility]; SHE PLANS FOR PT TO RETURN TO [facility] AND HAS DISCUSSED WITH NICOLA AT [facility] PT RETURNING TO SKILLED REHAB IF INSURANCE WILL APPROVE. QING ASKED THAT PAPERWORK BE FAXED FOR INSURANCE TO BE CONTACTED TO REQUEST INSURANCE AUTHORIZATION. CM COMPLETED CONSENT FORM FOR [facility]. CM CALLED [facility], , LEFT MESSAGE FOR [facility]. CM FAXED REFERRAL TO [facility] AT [phone]. [facility] TO SUBMIT FOR AUTHORIZATION TO INSURANCE FOR PT TO RETURN TO SKILLED BED. FOR DISCHARGE, FAX DISCHARGE INFORMATION TO [facility] AT [phone]. NURSE REPORT TO BE CALLED TO [facility] AT [phone]. [facility] TO ARRANGE VAN TRANSPORT. Lev Lima, CASE MANAGEMENT DCP- Discharge Planning Updated by [id number]: Leeann Strong on 01/18/19 5:[address] CM met with patient/family to complete initial dc planning assessment. CM educated family on the CM role and verbal consent given by family to complete assessment. CM verified patient's address, phone number, and emergency contact phone numbers. Patient lives at [facility] and the staff is her primary caregiver. She requires total assistance with ADL's and medication management. At discharge patient plans to return to the nursing facility and family feels this is a safe discharge. Family denied any known discharge needs at this time. [place] van will transport patient to the facility at time of discharge. PCP: Dr. Kaplan, Pharmacy: [facility] provides medications. DME: W/C bound. Emergency contacts and POA: Qing Chau (dtr) #[phone], Norah Barajas (dtr) [phone]. CM request daughter to bring a copy of POA to the nursing floor. Family denies that patient has been hospitalized within past 30 days. Transportation at [place] will be the [place] van. CM will continue to follow and will assist as needed with dc plans/needs PRN. Leeann Strong RN Coverage Notice Reviewer: [id number] - Lev Lima Notice Issued Date-Time: 01/22/2019 14:00 Notice Type: Patient Choice Letter Notice Delivered To: Patient Relationship to Patient: Yarn Weight And Strength Tester Name: Delivery Method: PHONE - Phone Yoana Days: Prior Verbal Notification: Recipient Understood Notice: Yes Recipient Signature: Yes Med Rec Note Co-signed by Attending: Coverage Notice Comment: [facility] Last DP export: 01/23/19 8:01 a Patient Name: EMILIANO PATEL Page 82516 at 1804 All edits/amendments must be made on the electronic document DICTATION DATE: 01/23/191803 MORTGAGE CONSULTANT: HELLEN 01/23/191803 RPT#: [id number] DC DATE: STATUS: ADM IN [facility] [address] [place] [address] END OF REPORT
[2019-01-23 20:00] VITALS: BP 141/70
--- NOTE | 2019-01-23 20:00 | NUR ---
INITIAL ROUNDS AND ASSESSMENT COMPLETED AT THIS TIME. PT CONFUSED/DISORIENTED. NS @ 50ML/HR INFUSING TO RFA. ROBLERO PATENT TO BEDSIDE DRAIN BAG. DRESSINGS TO LEFT HIP/THIGH X 3 ALL C/D/I AND CHANGED OF TODAY. FALL PRECAUTIONS IN PLACE. CPOC.
--- NOTE | 2019-01-23 20:21 | NUR ---
POTASSIUM RECHECK DRAWN AT THIS TIME.
[2019-01-24] VITALS (7 sets, daily range): BP systolic 112–161; BP diastolic 57–74
--- NOTE | 2019-01-24 00:10 | NUR ---
RECHECK OF POTASSIUM WAS 3.7, NO FURTHER IV POTASSIUM NEEDED. PT TURNED/REPOSITIONED. CLEAN AND DRY.
[2019-01-24 05:44] LABS: BASOPHILS 0.1 % (0-2); EOSINOPHILS 1.7 % (0-7); HEMATOCRIT 33.4 % (36.0-48.0); HEMOGLOBIN 11.4 g/dL (12-16); IMMATURE GRANULOCYTES 0.4 % (0-5); LYMPHOCYTES 14.2 % (15-50); MCH 31.4 pg (26.0-34.0); MCHC 34.1 g/dL (31.0-37.0); MONOCYTES 15.1 % (2-11); NEUTROPHILS 68.5 % (40-80); PLATELET COUNT 173 10x3/uL (130-400); RBC 3.63 10x6/uL (4.00-5.40); RDW 15.7 % (11.5-14.5); WBC 7.6 10x3/uL (4.8-10.8)
[2019-01-24 05:44] LABS: APPEARANCE HAZY (CLEAR); BILIRUBIN NEGATIVE (NEGATIVE); COLOR YELLOW (YELLOW); EPITHELIAL CELLS RARE /hpf (0-5); GLUCOSE NEGATIVE (NEGATIVE); KETONE NEGATIVE (NEGATIVE); NITRITE NEGATIVE (NEGATIVE); PROTEIN NEGATIVE (NEGATIVE); UROBILINOGEN NORMAL (NORMAL); WHITE CELLS - URINE 0-5 /hpf (0-5)
[2019-01-24 06:15] LABS: CALC OSMOLALITY 280 mosm/kg (275-300); CALCIUM 7.7 mg/dL (8.5-10.1); CARBON DIOXIDE 26.7 mmol/L (21.0-32.0); CHLORIDE - SERUM 106 mmol/L (98-107); CREATININE - SERUM 0.5 mg/dL (0.6-1.3); GLUCOSE 84 mg/dL (74-106); POTASSIUM - SERUM 3.6 mmol/L (3.5-5.1); SODIUM 143 mmol/L (136-145); eGFR NON AFRICAN AMERICAN > 90 mL/min (90-120)
[2019-01-24 06:21] LABS: UREA NITROGEN 3 mg/dL (7-18)
--- NOTE | 2019-01-24 07:51 | MORECARE ---
CASE MANAGEMENT DISCHARGE SUMMARY PATIENT: EMILIANO PATEL UNIT: [id number] ADM DATE: 01/18/19 AGE: 83 : 35 SEX: F ROOM/BED: D.6170 AUTHOR: MIGUEL,CHATA PHYSICIAN: REFERRING PHYSICIAN: MONSERRAT DUARTE DO DATE OF SERVICE: 01/24/19 Discharge Plan Patient Name: EMILIANO PATEL Facility: [facility]:[place] : 1935 Planned Disposition: Nursing Facility [facility] Cert Anticipated Discharge Date: Discharge Date: Expected LOS: Initial Reviewer: [id number] Initial Review Date: 01/18/2019 Generated: 01/24/19 8:50 am Comments DCP- Discharge Planning Updated by [id number]: Lev Lima on 01/23/19 4:[address] Patient Name: EMILIANO PATEL Encounter No: [id number] : 1935 Primary Insurance: HU[employer] CHOICE PPO MCR ADVANT Anticipated DC Date: Planned Disposition: Nursing Facility [facility] Cert External Planned Provider:[facility] DISCHARGE PLANNING NOTE: CM RECEIVED REQUEST FROM DAUGHTER, QING CHAU, , FOR PT TO HAVE SOMETHING FOR AGGITATION AND ANXIETY. CM NOTIFIED BEDSIDE NURSE. CM WAITING AUTHORIZATION FROM INSURANCE FOR PT TO RETURN TO SKILLED BED. FOR DISCHARGE, FAX DISCHARGE INFORMATION TO [facility] AT [phone]. NURSE REPORT TO BE CALLED TO [facility] AT [phone]. [facility] TO ARRANGE VAN TRANSPORT. Lev Lima, KRISTI MARQUEZ DCP- Discharge Planning Updated by [id number]: Lev Lima on 01/22/19 4:[address] Patient Name: EMILIANO PATEL Encounter No: [id number] : 1935 Primary Insurance: HU[employer]NA CHOICE PPO MCR ADVANT Anticipated DC Date: Planned Disposition: Nursing Facility [facility] Cert External Planned Provider: [facility], MEDICARE REHAB BED DCP follow-up note: CM RECEIVED PHONE CALL FORM IQNG CHAU, DAUGHTER, , WHO INFORMED CM THAT PT LIVES AT [facility]; SHE PLANS FOR PT TO RETURN TO [facility] AND HAS DISCUSSED WITH NICOLA AT [facility] PT RETURNING TO SKILLED REHAB IF INSURANCE WILL APPROVE. QING ASKED THAT PAPERWORK BE FAXED FOR INSURANCE TO BE CONTACTED TO REQUEST INSURANCE AUTHORIZATION. CM COMPLETED CONSENT FORM FOR [facility]. CM CALLED [facility], , LEFT MESSAGE FOR [facility]. CM FAXED REFERRAL TO [facility] AT [phone]. [facility] TO SUBMIT FOR AUTHORIZATION TO INSURANCE FOR PT TO RETURN TO SKILLED BED. FOR DISCHARGE, FAX DISCHARGE INFORMATION TO [facility] AT [phone]. NURSE REPORT TO BE CALLED TO [facility] AT [phone]. [facility] TO ARRANGE VAN TRANSPORT. Lev Lima, CASE MANAGEMENT DCP- Discharge Planning Updated by [id number]: Leeann Strong on 01/18/19 5:[address] CM met with patient/family to complete initial dc planning assessment. CM educated family on the CM role and verbal consent given by family to complete assessment. CM verified patient's address, phone number, and emergency contact phone numbers. Patient lives at [facility] and the staff is her primary caregiver. She requires total assistance with ADL's and medication management. At discharge patient plans to return to the nursing facility and family feels this is a safe discharge. Family denied any known discharge needs at this time. [place] van will transport patient to the facility at time of discharge. PCP: Dr. Kaplan, Pharmacy: [place] provides medications. DME: W/C bound. Emergency contacts and POA: Qing Chau (dtr) #[phone], Norah Barajas (dtr) [phone]. CM request daughter to bring a copy of POA to the nursing floor. Family denies that patient has been hospitalized within past 30 days. Transportation at [place] will be the [place] van. CM will continue to follow and will assist as needed with dc plans/needs PRN. Leeann Strong RN Coverage Notice Reviewer: [id number] - Lev Lima Notice Issued Date-Time: 01/22/2019 14:00 Notice Type: Patient Choice Letter Notice Delivered To: Patient Relationship to Patient: Edge Inker Uppers Name: Delivery Method: PHONE - Phone Yoana Days: Prior Verbal Notification: Recipient Understood Notice: Yes Recipient Signature: Yes Med Rec Note Co-signed by Attending: Coverage Notice Comment: [facility] Last DP export: 01/23/19 5:04 p Patient Name: EMILIANO PATEL Page 90496 at 0751 All edits/amendments must be made on the electronic document DICTATION DATE: 01/24/19749 ASSOCIATE PROFESSOR OF THEOLOGY: HELLEN 01/24/19749 RPT#: [id number] DC DATE: STATUS: ADM IN [facility] [address] [place] [address] END OF REPORT
--- NOTE | 2019-01-24 10:55 | NUR ---
Nutrition Follow-up: Noted pt confused/disoriented. Poor PO intake. Diet: Regular PO intake: 0% this AM Wt: 138# No BMs recorded Labs reviewed Meds reviewed +Ensure Clear with meals. May consider initiation of nutrition support; RD available for assistance. RD following.
--- NOTE | 2019-01-24 12:19 | NUR ---
OT NOTE: PT RESTING QUIETLY. EXPLAINED TO PT WHAT WE WERE GOING TO DO FOR THERAPY. MAX ASSIST FOR BED MOB AND SUPINE TO SIT. PT BECAME EXTREMELY ANXIOUS, BUT NOT AGITATED. REQUIRED MOD ASSIST FOR STATIC SITTING SHE WAS OFF SET SITTING ON L SIDE PROBABLY DUE TO HIP PAIN. PT ABLE TO WASH FACE WITH WASHCLOTH WITH MIN ASSIST. MAX ASSIST WITH DONNING GOWN AND PERINEAL CARE. PT POSITIONED WITH L LEG SLIGHTLY ELEVATED ON PILLOW, WITH PRESSURE OFF OF L HEEL. LARGE PRESSURE AREA ON L HEEL. RUT SANTO, OTR/L
--- NOTE | 2019-01-24 13:04 | MORECARE ---
CASE MANAGEMENT DISCHARGE SUMMARY PATIENT: EMILIANO PATEL UNIT: [id number] ADM DATE: 01/18/19 AGE: 83 : 35 SEX: F ROOM/BED: D.8624 AUTHOR: MIGUEL,DOC PHYSICIAN: REFERRING PHYSICIAN: MONSERRAT DUARTE DO DATE OF SERVICE: 01/24/19 Discharge Plan Patient Name: EMILIANO PATEL Facility: [facility]:[place] : 1935 Planned Disposition: Nursing Facility [facility] Cert Anticipated Discharge Date: Discharge Date: Expected LOS: Initial Reviewer: [id number] Initial Review Date: 01/18/2019 Generated: 01/24/19 2:04 pm Comments DCP- Discharge Planning Updated by [id number]: Lev Lima on 01/24/19 12:[address] Patient Name: EMILIANO PATEL Encounter No: [id number] : 1935 Primary Insurance: [employer] CHOICE PPO MCR ADVANT Anticipated DC Date: Planned Disposition: Nursing Facility [facility] Cert External Planned Provider: [facility] DISCHARGE PLANNING NOTE: CM RECEIVED REQUEST FROM DAUGHTER, QING ROSA, , FOR PT TO HAVE SOMETHING FOR AGGITATION AND ANXIETY. CM NOTIFIED BEDSIDE NURSE. CM WAITING AUTHORIZATION FROM INSURANCE FOR PT TO RETURN TO SKILLED BED. FOR DISCHARGE, FAX DISCHARGE INFORMATION TO [facility] AT [phone]. NURSE REPORT TO BE CALLED TO [facility] AT [phone]. [facility] TO [facility]ANGE VAN TRANSPORT. Lev Lima, CASE MANAGEMENT DCP- Discharge Planning Updated by [id number]: Lev Lima on 01/22/19 4:[address] Patient Name: EMILIANO PATEL Encounter No: [id number] : 1935 Primary Insurance: HUMANA CHOICE PPO MCR ADVANT Anticipated DC Date: Planned Disposition: Nursing Facility [facility] Cert External Planned Provider: [facility] MEDICARE REHAB B[facility] DCP follow-up note: CM RECEIVED PHONE CALL FORM QING ROSA, DAUGHTER, , WHO INFORMED CM THAT PT LIVES AT [facility]; SHE PLANS FOR PT TO RETURN TO [facility] AND HAS DISCUSSED WITH NICOLA AT [facility] PT RETURNING TO SKILLED REHAB IF INSURANCE WILL APPROVE. QING ASKED THAT PAPERWORK BE FAXED FOR INSURANCE TO BE CONTACTED TO REQUEST INSURANCE AUTHORIZATION. CM COMPLETED CONSENT FORM FOR [facility]. CM CALLED [facility], , LEFT MESSAGE FOR [facility]O. CM FAXED REFERRAL TO [facility] AT [phone]. [facility] TO SUBMIT FOR AUTHORIZATION TO INSURANCE FOR PT TO RETURN TO SKILLED BED. FOR DISCHARGE, FAX DISCHARGE INFORMATION TO [facility] AT [phone]. NURSE REPORT TO BE CALLED TO [facility] AT [phone]. [facility] TO [facility]ANGE VAN TRANSPORT. Lev Lima, CASE MANAGEMENT DCP- Discharge Planning Updated by [id number]: Leeann Strong on 01/18/19 5:[address] CM met with patient/family to complete initial dc planning assessment. CM educated family on the CM role and verbal consent given by family to complete assessment. CM verified patient's address, phone number, and emergency contact phone numbers. Patient lives at [facility] and the staff is her primary caregiver. She requires total assistance with ADL's and medication management. At discharge patient plans to return to the nursing facility and family feels this is a safe discharge. Family denied any known discharge needs at this time. [facility] van will transport patient to the facility at time of discharge. PCP: Dr. Kaplan, Pharmacy: [facility] provides medications. DME: [facility]C bound. Emergency contacts and POA: Qing Kandi (dtr) #[phone], Norah Barajas (dtr) [phone]. CM request daughter to bring a copy of POA to the nursing floor. Family denies that patient has been hospitalized within past 30 days. Transportation at dc will be the [facility] van. CM will continue to follow and will assist as needed with dc plans/needs PRN. Leeann Strong RN External Providers External Provider: [employer] Next Contact Date: 01/24/2019 Service Request Date: Service Type: Resolution: Reviewer: Comments: Coverage Notice Reviewer: [id number] - Lev Lima Notice Issued Date-Time: 01/22/2019 14:00 Notice Type: Patient Choice Letter Notice Delivered To: Patient Relationship to Patient: Alley Worker Name: Delivery Method: PHONE - Phone Yoana Days: Prior Verbal Notification: Recipient Understood Notice: Yes Recipient Signature: Yes Med Rec Note Co-signed by Attending: Coverage Notice Comment: [facility] Last DP export: 01/24/19 6:51 a Patient Name: EMILIANO PATEL Page [phone] at 1304 All edits/amendments must be made on the electronic document DICTATION DATE: 01/24/19 1303 ACCOUNTING INTERN: HELLEN 01/24/19 1303 RPT#: [id number] DC DATE: STATUS: ADM IN [facility] [address] [place] [address] END OF REPORT
--- NOTE | 2019-01-24 13:11 | MORECARE ---
CASE MANAGEMENT DISCHARGE SUMMARY PATIENT: EMILIANO PATEL UNIT: [id number] ADM DATE: 01/18/19 AGE: 83 : 35 SEX: F ROOM/BED: D.7796 AUTHOR: MIGUEL,DOC PHYSICIAN: REFERRING PHYSICIAN: MONSERRAT DUARTE DO DATE OF SERVICE: 01/24/19 Discharge Plan Patient Name: EMILIANO PATEL Facility: [facility]:[place] : 1935 Planned Disposition: Nursing Facility [facility] Cert Anticipated Discharge Date: Discharge Date: Expected LOS: Initial Reviewer: [id number] Initial Review Date: 01/18/2019 Generated: 01/24/19 2:11 pm Comments DCP- Discharge Planning Updated by [id number]: Lev Lima on 01/24/19 12:[address] Patient Name: EMILIANO PATEL Encounter No: [id number] : 1935 Primary Insurance: HU[employer]NA CHOICE PPO MCR ADVANT Anticipated DC Date: Planned Disposition: Nursing Facility [facility] Cert External Planned Provider: [facility] DCP follow-up note: CM REVIEWED CHART, PT RECEIVING GEODON FOR AGGITATION. CM COMPLETED [employer] SCREENING FORM, OBTAINED JS BAUMAN'S SIGNATURE. CM FA[place]ED [place] [facility] [place] [phone]. CM WAITING GURU SCREENING COMPLETION FOR CLEARANCE TO RE ENTER PRISON FACILITY. CM WAITING AUTHORIZATION FROM INSURANCE FOR PT TO RETURN TO SKILLED BED. FOR DISCHARGE, FAX DISCHARGE INFORMATION TO [facility] AT [phone]. NURSE REPORT TO BE CALLED TO [facility] AT [phone]. [facility] TO ARRANGE VAN TRANSPORT. Lev Lima, CASE MANAGEMENT Lev Lima DCP- Discharge Planning Updated by [id number]: Lev Lima on 01/24/19 12:[address] Patient Name: EMILIANO PATEL Encounter No: [id number] : 1935 Primary Insurance: HU[employer]NA CHOICE PPO MCR ADVANT Anticipated DC Date: Planned Disposition: Nursing Facility [facility] Cert External Planned Provider[facility] DISCHARGE PLANNING NOTE: CM RECEIVED REQUEST FROM DAUGHTER, QING CHAU, , FOR PT TO HAVE SOMETHING FOR AGGITATION AND ANXIETY. CM NOTIFIED BEDSIDE NURSE. CM WAITING AUTHORIZATION FROM INSURANCE FOR PT TO RETURN TO SKILLED BED. FOR DISCHARGE, FAX DISCHARGE INFORMATION TO [facility] AT [phone]. NURSE REPORT TO BE CALLED TO [facility] AT [phone]. [facility] TO ARRANGE VAN TRANSPORT. KRISTI Waggoner MANAGEMENT DCP- Discharge Planning Updated by [id number]: Lev Lima on 01/22/19 4:[address] Patient Name: EMILIANO PATEL Encounter No: [id number] : 1935 Primary Insurance: HUMANA CHOICE PPO MCR ADVANT Anticipated DC Date: Planned Disposition: Nursing Facility [facility] Cert External Planned Provider: [facility], MEDICARE REHAB BED DCP follow-up note: CM RECEIVED PHONE CALL FORM QING CHAU, DAUGHTER, , WHO INFORMED CM THAT PT LIVES AT [facility] IN [place] [facility]; SHE PLANS FOR PT TO RETURN TO [facility] [place] AND HAS DISCUSSED WITH NICOLA AT [facility] PT RETURNING TO SKILLED REHAB IF INSURANCE WILL APPROVE. QING ASKED THAT PAPERWORK BE FAXED FOR INSURANCE TO BE CONTACTED TO REQUEST INSURANCE AUTHORIZATION. CM COMPLETED CONSENT FORM FOR [facility]. CM CALLED [facility], , LEFT MESSAGE FOR [facility]. CM FAXED REFERRAL TO [facility] AT [phone]. [facility] TO SUBMIT FOR AUTHORIZATION TO INSURANCE FOR PT TO RETURN TO SKILLED BED. FOR DISCHARGE, FAX DISCHARGE INFORMATION TO [facility] AT [phone]. NURSE REPORT TO BE CALLED TO [facility] AT [phone]. [facility] TO ARRANGE VAN TRANSPORT. KRISTI Waggoner DCP- Discharge Planning Updated by [id number]: Leeann Strong on 01/18/19 5:[address] CM met with patient/family to complete initial dc planning assessment. CM educated family on the CM role and verbal consent given by family to complete assessment. CM verified patient's address, phone number, and emergency contact phone numbers. Patient lives at [facility] and the staff is her primary caregiver. She requires total assistance with ADL's and medication management. At discharge patient plans to return to the nursing facility and family feels this is a safe discharge. Family denied any known discharge needs at this time. [facility] van will transport patient to the facility at time of discharge. PCP: Dr. Kaplan, Pharmacy: [facility] provides medications. DME: W/C bound. Emergency contacts and POA: Qing Chau (dtr) #[phone], Norah Barajas (dtr) [phone]. CM request daughter to bring a copy of POA to the nursing floor. Family denies that patient has been hospitalized within past 30 days. Transportation at tx will be the [facility] van. CM will continue to follow and will assist as needed with dc plans/needs PRN. Leeann Strong RN Coverage Notice Reviewer: [id number] - Lev Lima Notice Issued Date-Time: 01/22/2019 14:00 Notice Type: Patient Choice Letter Notice Delivered To: Patient Relationship to Patient: Brisket Puller Name: Delivery Method: PHONE - Phone Yoana Days: Prior Verbal Notification: Recipient Understood Notice: Yes Recipient Signature: Yes Med Rec Note Co-signed by Attending: Coverage Notice Comment: [facility] Last DP export: 01/24/19 12:04 p Patient Name: EMILIANO PATEL Page 42170 at 1311 All edits/amendments must be made on the electronic document DICTATION DATE: 01/24/19 1311 MANAGER OF INTERNAL AUDIT: HELLEN 01/24/19 1311 RPT#: [id number] DC DATE: STATUS: ADM IN [facility] [address] [place] [address] END OF REPORT
--- NOTE | 2019-01-24 13:41 | NUR ---
OT NOTE: PT COMPLETED BED MOB TASKS WITH MAX A. PT COMPLETED FACE WASHING WITH MOD A. PT IS CONFUSED AND REQUIRED EXTRA TIME. THANK YOU,BOBY LOUISE
--- NOTE | 2019-01-24 19:39 | NUR ---
RECEIVED REPORT, WILL ASSUME CARE OF PT, ASSIST DIGESTER WITH CLEAN UP AND REPOSITONED PT, BED IS LOW, SRX3, CALL LIGHT IN REACH, WILL CONTINUE PLAN OF CARE
[2019-01-25 04:30] VITALS: BP 126/72
[2019-01-25 05:24] LABS: BASOPHILS 0 % (0-2); EOSINOPHILS 1.2 % (0-7); HEMATOCRIT 33.6 % (36.0-48.0); HEMOGLOBIN 11.4 g/dL (12-16); IMMATURE GRANULOCYTES 0.2 % (0-5); LYMPHOCYTES 10.9 % (15-50); MCH 30.6 pg (26.0-34.0); MCHC 33.9 g/dL (31.0-37.0); MCV 90.1 fL (80.0-100.0); MEAN PLATELET VOLUME 10.2 fL (7.4-10.4); MONOCYTES 12.3 % (2-11); NEUTROPHILS 75.4 % (40-80); RBC 3.73 10x6/uL (4.00-5.40); RDW 15.1 % (11.5-14.5)
[2019-01-25 05:25] LABS: PLATELET COUNT 213 10x3/uL (130-400); WBC 9.8 10x3/uL (4.8-10.8)
[2019-01-25 05:28] LABS: CALCIUM 7.7 mg/dL (8.5-10.1); CARBON DIOXIDE 26.8 mmol/L (21.0-32.0); CHLORIDE - SERUM 103 mmol/L (98-107); CREATININE - SERUM 0.4 mg/dL (0.6-1.3); GLUCOSE 108 mg/dL (74-106); SODIUM 138 mmol/L (136-145); eGFR NON AFRICAN AMERICAN > 90 mL/min (90-120)
[2019-01-25 05:37] LABS: CALC OSMOLALITY 273 mosm/kg (275-300); UREA NITROGEN 5 mg/dL (7-18)
[2019-01-25 05:40] LABS: POTASSIUM - SERUM 2.7 mmol/L (3.5-5.1)
--- NOTE | 2019-01-25 07:20 | NUR ---
I have reviewed this patient and I concur with the Shift Assessment completed by the Licensed Practical Nurse today this shift.
[2019-01-25 09:02] VITALS: BP 139/67
--- NOTE | 2019-01-25 11:00 | NUR ---
IS YELLING AGUILAR SPEECH ONTED. HAS PUULED OUT IV AND TRYING TO PULL OUT ROBLERO. AMEENA WEINSTEIN NOTIFIED. NEW ORDERS GIVEN.
--- NOTE | 2019-01-25 12:00 | NUR ---
GEODON AND IRISHM GIVEN. HAS CALMED DOWN GREATLY AND ATE 75% LUNCH.
[2019-01-25 12:34] LABS: MAGNESIUM - SERUM 1.5 mg/dL (1.8-2.4)
[2019-01-25 12:35] LABS: POTASSIUM - SERUM 3.3 mmol/L (3.5-5.1)
--- NOTE | 2019-01-25 14:29 | NUR ---
OK TO LEAVE IV OUT. JOSEFINA COMPLETED.
--- NOTE | 2019-01-25 15:14 | NUR ---
CRYING OUT AGAIN. CONFUSION NOTED. FILLING STATION LABORER NOTIFIED. WILL MONITOR.
[2019-01-25 17:47] VITALS: BP 124/54
[2019-01-25 20:00] VITALS: BP 139/60
--- NOTE | 2019-01-25 20:00 | NUR ---
INITIAL ROUNDS AND ASSESSMENT COMPLETED. PT RESTING IN BED. FALL PRECAUTIONS. MORE ALERT, BUT CONFUSED/RESTLESS AND PULLING OFF TELEMETRY AND HAD PULLED OUT IV ON DAY SHIFT. ROBLERO PATENT TO BEDSIDE DRAIN BAG. CPOC.
--- NOTE | 2019-01-25 21:37 | NUR ---
BEDTIME MEDS GIVEN. ORAL MEDS GIVEN WITH SOME DIFFICULTY. IM GEODON GIVEN. PT PULLED AND REPOSITIONED TO PROMOTE COMFORT. LEFT HIP/THIGH INCISIONS X 3 OPEN TO AIR/INTACT AND ALL WITH NINA IN PLACE. FALL PRECAUTIONS IN PLACE. CPOC.
[2019-01-26] VITALS: BP 125/60
[2019-01-26 04:00] VITALS: BP 127/65
--- NOTE | 2019-01-26 07:19 | NUR ---
PT AWAKE AND CONFUSED, NOT CRYING OUT BUT PICKING AT HER LINNEN. DID NOT RESPOND TO MY QUESTIONS AT THIS TIME. BED ALARM ON, CL IN REACH, SRX3. NO FAMILY PRESENT AT BEDSIDE. NO SIGNS/SYMPTOMS OF ACUTE DISTRESS NOTED OR STATED AT THIS TIME.
[2019-01-26 08:00] VITALS: BP 124/52
--- NOTE | 2019-01-26 10:00 | NUR ---
PT TOOK MEDS CRUSHED IN VANILLA PUDDING, ATE THE WHOLE PUDDING CUP. PLACED GAUZE PADS AND TEGADERM DRESSING PER DR. HATCH REQUET. PT HAS BEEN CALM THIS MORNING. CHANGED PADS, PT CLEAN/DRY. CL IN REACH, SRX2, NATHEN ALARM ON.
[2019-01-26 11:33] LABS: BASOPHILS 0.1 % (0-2); EOSINOPHILS 2.4 % (0-7); HEMATOCRIT 34.6 % (36.0-48.0); HEMOGLOBIN 11.8 g/dL (12-16); IMMATURE GRANULOCYTES 0.1 % (0-5); LYMPHOCYTES 10.9 % (15-50); MCH 31.3 pg (26.0-34.0); MCHC 34.1 g/dL (31.0-37.0); MCV 91.8 fL (80.0-100.0); MEAN PLATELET VOLUME 10.5 fL (7.4-10.4); MONOCYTES 13.4 % (2-11); NEUTROPHILS 73.1 % (40-80); PLATELET COUNT 220 10x3/uL (130-400); RBC 3.77 10x6/uL (4.00-5.40); RDW 15.6 % (11.5-14.5); WBC 7.8 10x3/uL (4.8-10.8)
[2019-01-26 11:46] LABS: CALC OSMOLALITY 278 mosm/kg (275-300); CALCIUM 7.9 mg/dL (8.5-10.1); CARBON DIOXIDE 27.6 mmol/L (21.0-32.0); CHLORIDE - SERUM 105 mmol/L (98-107); GLUCOSE 145 mg/dL (74-106); SODIUM 139 mmol/L (136-145); UREA NITROGEN 6 mg/dL (7-18)
[2019-01-26 11:47] LABS: CREATININE - SERUM 0.6 mg/dL (0.6-1.3); POTASSIUM - SERUM 3.2 mmol/L (3.5-5.1); eGFR NON AFRICAN AMERICAN > 90 mL/min (90-120)
[2019-01-26 12:30] VITALS: BP 131/81
--- NOTE | 2019-01-26 12:31 | NUR ---
I have reviewed this patient and I concur with the Shift Assessment completed by the Licensed Practical Nurse today this shift.
--- NOTE | 2019-01-26 14:13 | NUR ---
PT STATES WE TOOK HER BABY AWAY. ATTMEPTED TO SOOTH PT BUT SHE WASN'T SOOTHABLE. SHE IS QUIET AT THIS TIME, STATING SHE WON'T TALK TO US IF WE DON'T GIVE HER HER BABY BACK. CL IN REACH, SRX2, BED LOW AND LOCKED, NATHEN ALARM ON.
[2019-01-26 15:08] LABS: AEROBE ID Final report (())
[2019-01-26 16:30] VITALS: BP 132/78
--- NOTE | 2019-01-26 17:24 | NUR ---
SPOKE WITH COATER ASSOCIATE AND CHARGE NURSE, MOVING PT TO ROOM 2106. PT DOES NOT MEET PCU CRITERIA AT THIS TIME.
--- NOTE | 2019-01-26 18:21 | NUR ---
CHANGED MIND ON MOVING PT, PT IS CURRENTLY IN 2117 WILL NOT CHANGE AT THIS TIME. PT BEGAN SCREAMING LOUDLY "HELLO HELLO" TO PT ACROSS THE SY IN 2121. THEY SCREAMED AT ONE ANOTHER WANTING DIFFERENT THINGS. PT WANTED WATER AND A SNACK. PROVIDED AND ASSISTED PT IN EATING/DRINKING. PT IS CONFUSED, BUT NOT BEYOND HER NORMAL. PT IS CURRENTLY. CL IN REACH, SRX2. BED ALARM ON.
[2019-01-26 20:00] VITALS: BP 145/65
--- NOTE | 2019-01-26 20:00 | NUR ---
INITIAL ROUNDS AND ASSESSMENT COMPLETED. PT ALERT/CONFUSED. EPISODES OF CRYING OUT/BEING TEARFUL. WILL ANSWER SIMPLE QUESTIONS WHEN NURSE SITS BY PATIENT AND TALKS WITH HER. ROBLERO PATENT TO BEDSIDE DRAIN BAG. NONLABORED RESPIRATIONS ON ROOM AIR. LEFT HIP WITH INCISIONS X [address] CPOC.
[2019-01-27] VITALS: BP 114/57
[2019-01-27 05:32] LABS: BASOPHILS 0.1 % (0-2); EOSINOPHILS 2.3 % (0-7); HEMATOCRIT 33.6 % (36.0-48.0); HEMOGLOBIN 11.2 g/dL (12-16); IMMATURE GRANULOCYTES 0.3 % (0-5); LYMPHOCYTES 12.5 % (15-50); MCH 30.6 pg (26.0-34.0); MCHC 33.3 g/dL (31.0-37.0); MCV 91.8 fL (80.0-100.0); MEAN PLATELET VOLUME 10.5 fL (7.4-10.4); MONOCYTES 14.7 % (2-11); NEUTROPHILS 70.1 % (40-80); PLATELET COUNT 219 10x3/uL (130-400); RBC 3.66 10x6/uL (4.00-5.40); RDW 15.5 % (11.5-14.5)
[2019-01-27 05:49] LABS: CALC OSMOLALITY 275 mosm/kg (275-300); CARBON DIOXIDE 28.9 mmol/L (21.0-32.0); CHLORIDE - SERUM 104 mmol/L (98-107); CREATININE - SERUM 0.5 mg/dL (0.6-1.3); GLUCOSE 102 mg/dL (74-106); POTASSIUM - SERUM 3.4 mmol/L (3.5-5.1); SODIUM 140 mmol/L (136-145); UREA NITROGEN 5 mg/dL (7-18); eGFR NON AFRICAN AMERICAN > 90 mL/min (90-120)
[2019-01-27 06:25] VITALS: BP 123/65
--- NOTE | 2019-01-27 08:07 | NUR ---
ASSESSMENT DONE. DENIES NEEDS
[2019-01-27 08:43] VITALS: BP 141/69
[2019-01-27 13:28] VITALS: BP 142/63
--- NOTE | 2019-01-27 14:15 | NUR ---
HR 178. DR BELL HERE.
--- NOTE | 2019-01-27 14:30 | NUR ---
ORDER RECIVED TO RECONSULT DR BARKER. AND IV MS
--- NOTE | 2019-01-27 14:39 | NUR ---
OT NOTE: PT COMPLETED BED MOB WITH TOTAL ASSIST, PT COMPLETED SUPINE TO SIT WITH TOTAL ASSIST. PT COMPLETED SIMPLE FACE WASH WITH TOTAL ASSIST. PT IS UNABLE TO SEQUENCE BASIC TASKS. NURSING IN ROOM TO RE APPLY BANDAGE. THANK YOU, BOBY LOUISE
--- NOTE | 2019-01-27 15:00 | NUR ---
DR RAM NOTIFYED OF CONSULT AND ORDERS RECIVED, START CARDIZEM AT 10 MG PER HOUR
--- NOTE | 2019-01-27 15:04 | NUR ---
OT NOTE: PT REMAINS VERY CONFUSED. DIFFICULTY FOLLOWING 1 STEP COMMANDS; MAX ASSIST WITH BED MOB; MAX/TOTAL ASSIST WITH ADLS. RUT SANTO, OTR/L
[2019-01-27 15:08] LABS: AEROBE ID Final report (()); RESULT 1 Aerococcus urinae (())
--- NOTE | 2019-01-27 15:23 | NUR ---
IV SITED TO RT UPPER ARM X 6 STICKS PER MAURICERN. CARDIZEM STARTED AT 10MG/HR. AND MS 2 MG GIVEN
[2019-01-27 17:15] VITALS: BP 148/80
--- NOTE | 2019-01-27 17:17 | NUR ---
HR 114. RESTING WITH EYES CLOSED. WITHOUT DISTRESS NOTED AT THIS TIME.
--- NOTE | 2019-01-27 17:20 | NUR ---
I have reviewed this patient and I concur with the Shift Assessment completed by the Licensed Practical Nurse today this shift.
--- NOTE | 2019-01-27 19:36 | NUR ---
BEDSIDE REPORT RECEIVED. PATIENT IS PLEASANTLY CONFUSED. PATIENT IS ORIENTED TO NAME ONLY. RESPIRATIONS ARE EVEN AND UNLABORED. NO S/S OF DISTRESS. NO C/O PAIN. CALL LIGHT WITHIN REACH. WILL CPOC.
[2019-01-27 20:00] VITALS: BP 145/64
[2019-01-28 00:01] VITALS: BP 147/55
[2019-01-28 04:00] VITALS: BP 114/48
[2019-01-28 06:38] LABS: CALC OSMOLALITY 274 mosm/kg (275-300); CALCIUM 7.7 mg/dL (8.5-10.1); CARBON DIOXIDE 25.4 mmol/L (21.0-32.0); CHLORIDE - SERUM 100 mmol/L (98-107); CREATININE - SERUM 0.5 mg/dL (0.6-1.3); GLUCOSE 118 mg/dL (74-106); POTASSIUM - SERUM 3.2 mmol/L (3.5-5.1); SODIUM 138 mmol/L (136-145); eGFR NON AFRICAN AMERICAN > 90 mL/min (90-120)
[2019-01-28 06:39] LABS: UREA NITROGEN 8 mg/dL (7-18)
[2019-01-28 06:54] LABS: BASOPHILS 0.1 % (0-2); EOSINOPHILS 0.6 % (0-7); HEMATOCRIT 31.6 % (36.0-48.0); HEMOGLOBIN 10.5 g/dL (12-16); IMMATURE GRANULOCYTES 0.5 % (0-5); LYMPHOCYTES 12.4 % (15-50); MCH 30.4 pg (26.0-34.0); MCHC 33.2 g/dL (31.0-37.0); MCV 91.6 fL (80.0-100.0); MEAN PLATELET VOLUME 10.4 fL (7.4-10.4); MONOCYTES 13.1 % (2-11); NEUTROPHILS 73.3 % (40-80); PLATELET COUNT 214 10x3/uL (130-400); RBC 3.45 10x6/uL (4.00-5.40); RDW 15.3 % (11.5-14.5)
[2019-01-28 07:07] LABS: WBC 8.8 10x3/uL (4.8-10.8)
--- NOTE | 2019-01-28 07:30 | NUR ---
ASSESSMENT DONE. WITHOUT DISTRESS NOTED
[2019-01-28 08:00] VITALS: BP 114/45
[2019-01-28 12:00] VITALS: BP 100/50
--- NOTE | 2019-01-28 13:15 | NUR ---
Nutrition Follow-up: Noted evaluated by ST. Per ST, if pt continues to refuse food and liquids, alternative means of nutrition may be indicated. Diet: Regular, puree with thin liquids (aspiration precautions), Clear Ensure with meals PO intake: 33% avg x 9 meals Wt: 153# Last BM: 01/25 per chart Labs reviewed Meds reviewed Rec initiation of nutrition support; RD available for assistance. RD following.
--- NOTE | 2019-01-28 14:43 | NUR ---
OT NOTE: ATTEMPTED TMT IN AM, HOWEVER, WHEN STARTING TO MOVE PT TO EOB, SHE BEGAN YELLING UNCONTROLLABLY. UNSURE IF ITS DUE TO PAIN OR FEAR.. PT UNABLE TO UNDERSTAND OR PROCESS WHATS GOING ON AND UNABLE TO FOLLOW COMMANDS. POSITIONED PT BACK TO BED WITH PILLOW UNDER L FOOT. ABLE TO CALM PT BY HOLDING HER HANDS. NURSING REPORTS THAT SHE HAD BEEN GIVEN MORPHINE TODAY, BUT THAT SHE STILL CRIES OUT WITH PAIN MEDS. CHECKED ON PT IN PM. PT REMAINED WITH QUIVERING LIPS AND CHATTERING TEETH. SHE WAS NOT CRYING THEREFORE CHOSE TO HOLD THIS AFTERNOON. ITS VERY DIFFICULT TO MOVE THIS PT WITH THE PAIN/ANXIETY SHE IS HAVING. RUT SANTO, OTR/L
[2019-01-28 15:04] VITALS: BP 134/92
--- NOTE | 2019-01-28 16:05 | MORECARE ---
CASE MANAGEMENT DISCHARGE SUMMARY PATIENT: EMILIANO PATEL UNIT: [id number] ADM DATE: 01/18/19 AGE: 83 : 35 SEX: F ROOM/BED: D.0626 AUTHOR: MIGUEL,DOC PHYSICIAN: REFERRING PHYSICIAN: MONSERRAT DUARTE DO DATE OF SERVICE: 01/28/19 Discharge Plan Patient Name: EMILIANO PATEL Facility: [facility]:[place] : 1935 Planned Disposition: Group Home Facility Anticipated Discharge Date: Discharge Date: Expected LOS: Initial Reviewer: [email or web address] Initial Review Date: 01/18/2019 Generated: 01/28/19 5:04 pm DCP- Discharge Planning Updated by [id number]: Lev Lima on 01/24/19 12:[address] Patient Name: EMILIANO PATEL Encounter No: [id number] : 1935 Primary Insurance: [employer]NA CHOICE PPO MCR ADVANT Anticipated DC Date: Planned Disposition: Nursing Facility [facility] Cert External Planned Provider: [facility] DCP follow-up note: CM REVIEWED CHART, PT RECEIVING GEODON FOR AGGITATION. CM COMPLETED [employer] SCREENING FORM, OBTAINED JS BAUMAN'S SIGNATURE. CM [place] [facility] [place] [phone]. CM WAITING GURU SCREENING COMPLETION FOR CLEARANCE TO RE ENTER RESIDENTIAL FACILITY. CM WAITING AUTHORIZATION FROM INSURANCE FOR PT TO RETURN TO SKILLED BED. FOR DISCHARGE, FAX DISCHARGE INFORMATION TO [facility] AT [phone]. NURSE REPORT TO BE CALLED TO [facility] AT [phone]. [facility] TO ARRANGE VAN TRANSPORT. Lev Lima, CASE MANAGEMENT Lev Lima DCP- Discharge Planning Updated by [email or web address]: Lev Lima on 01/24/19 12:[address] Patient Name: EMILIANO PATEL Encounter No: [id number] : 1935 Primary Insurance: HU[employer]NA CHOICE PPO MCR ADVANT Anticipated DC Date: Planned Disposition: Nursing Facility [facility] Cert External Planned Provider[facility] DIS[facility]GE PLANNING NOTE: CM RECEIVED REQUEST FROM DAUGHTER, QING CHAU, , FOR PT TO HAVE SOMETHING FOR AGGITATION AND ANXIETY. CM NOTIFIED BEDSIDE NURSE. CM WAITING AUTHORIZATION FROM INSURANCE FOR PT TO RETURN TO SKILLED BED. FOR DISCHARGE, FAX DISCHARGE INFORMATION TO [facility] AT [phone]. NURSE REPORT TO BE CALLED TO [facility] AT [phone]. [facility] TO ARRANGE VAN TRANSPORT. KRISTI Waggoner MANAGEMENT DCP- Discharge Planning Updated by [id number]: Lev Lima on 01/22/19 4:[address] Patient Name: EMILIANO PATEL Encounter No: [id number] : 1935 Primary Insurance: [employer] CHOICE PPO MCR ADVANT Anticipated DC Date: Planned Disposition: Nursing Facility [facility] External Planned Provider: [facility], MEDICARE REHAB BED DCP follow-up note: CM RECEIVED PHONE CALL FORM QING CHAU, DAUGHTER, , WHO INFORMED CM THAT PT LIVES AT [facility]; SHE PLANS FOR PT TO RETURN TO [facility] AND HAS DISCUSSED WITH NICOLA AT [facility] PT RETURNING TO SKILLED REHAB IF INSURANCE WILL APPROVE. QING ASKED THAT PAPERWORK BE FAXED FOR INSURANCE TO BE CONTACTED TO REQUEST INSURANCE AUTHORIZATION. CM COMPLETED CONSENT FORM FOR [facility]. CM CALLED [facility], , LEFT MESSAGE FOR [facility]. CM FAXED REFERRAL TO [facility] AT [phone]. [facility] TO SUBMIT FOR AUTHORIZATION TO INSURANCE FOR PT TO RETURN TO SKILLED BED. FOR DISCHARGE, FAX DISCHARGE INFORMATION TO [facility] AT [phone]. NURSE REPORT TO BE CALLED TO [facility] AT [phone]. [facility] TO ARRANGE VAN TRANSPORT. KRISTI Waggoner MANAGEMENT DCP- Discharge Planning Updated by [id number]: Leeann Strong on 01/18/19 5:[address] CM met with patient/family to complete initial dc planning assessment. CM educated family on the CM role and verbal consent given by family to complete assessment. CM verified patient's address, phone number, and emergency contact phone numbers. Patient lives at [facility] and the staff is her primary caregiver. She requires total assistance with ADL's and medication management. At discharge patient plans to return to the nursing facility and family feels this is a safe discharge. Family denied any known discharge needs at this time. [facility] van will transport patient to the facility at time of discharge. PCP: Dr. Kaplan, Pharmacy: [facility] provides medications. DME: W/C bound. Emergency contacts and POA: Qing Chau (dtr) #[phone], Norah Barajas (dtr) [phone]. CM request daughter to bring a copy of POA to the nursing floor. Family denies that patient has been hospitalized within past 30 days. Transportation at dc will be the [facility] van. CM will continue to follow and will assist as needed with dc plans/needs PRN. Leeann Strong RN Coverage Notice Reviewer: [id number] Vianey Lima Notice Issued Date-Time: 01/22/2019 14:00 Notice Type: Patient Choice Letter Notice Delivered To: Patient Relationship to Patient: Rn Surgical Pcu Name: Delivery Method: PHONE - Phone Yoana Days: Prior Verbal Notification: Recipient Understood Notice: Yes Recipient Signature: Yes Med Rec Note Co-signed by Attending: Coverage Notice Comment: [facility] Last DP export: 01/24/19 12:11 p Patient Name: EMILIANO PATEL Page [id number] at 1605 All edits/amendments must be made on the electronic document DICTATION DATE: 01/28/191603 LABORATORY MANAGER: HELLEN 01/28/191603 RPT#: [id number] DC DATE: STATUS: ADM IN [facility] [address] [place] [address] END OF REPORT
--- NOTE | 2019-01-28 16:28 | MORECARE ---
CASE MANAGEMENT DISCHARGE SUMMARY PATIENT: EMILIANO PATEL UNIT: [id number] ADM DATE: 01/18/19 AGE: 83 : 35 SEX: F ROOM/BED: D.0949 AUTHOR: MIGUEL,DOC PHYSICIAN: REFERRING PHYSICIAN: MONSERRAT DUARTE DO DATE OF SERVICE: 01/28/19 Discharge Plan Patient Name: EMILIANO PATEL Facility: [facility]:[place] : 1935 Planned Disposition: Alf Facility Anticipated Discharge Date: Discharge Date: Expected LOS: Initial Reviewer: [id number] Initial Review Date: 01/18/2019 Generated: 01/28/19 5:28 pm Comments DCP- Discharge Planning Updated by [id number]: Lev Lima on 01/28/19 3:[address] Patient Name: EMILIANO PATEL Encounter No: [id number] : 1935 Primary Insurance: HU[employer]NA CHOICE PPO MCR ADVANT Anticipated DC Date: Planned Disposition: Alf Facility External Planned Provider: [facility] DCP follow-up note: CM REVIEWED GURU SCREENING COMPLETION FOR CLEARANCE TO RE ENTER PENITENTIARY FACILITY. CM CALLED AND SPOKE TO NICOLA AT [facility], PROVIDED UPDATE, . CM FAXED UPDATE WITH GURU SCREENING CLEARANCE LETTER TO [facility] AT [phone]. CM WAITING AUTHORIZATION FROM INSURANCE FOR PT TO RETURN TO SKILLED BED. FOR DISCHARGE, FAX DISCHARGE INFORMATION TO [facility] AT [phone]. NURSE REPORT TO BE CALLED TO [facility] AT [phone]. [facility] TO ARRANGE VAN TRANSPORT. Lev Lima, CASE MANAGEMENT DCP- Discharge Planning Updated by [id number]: Lev Lima on 01/24/19 12:[address] Patient Name: EMILIANO PATEL Encounter No: [id number] : 1935 Primary Insurance: HUMANA CHOICE PPO MCR ADVANT Anticipated DC Date: Planned Disposition: Nursing Facility [facility] Cert External Planned Provider: [facility] DCP follow-up note: CM REVIEWED CHART, PT RECEIVING GEODON FOR AGGITATION. CM COMPLETED GURU SCREENING FORM, OBTAINED JS BAUMAN'S SIGNATURE. CM FAXED FOR ASSESSMENT TO [facility] AT [phone]. CM WAITING [facility] SCREENING COMPLETION FOR CLEARANCE TO RE ENTER PENITENTIARY FACILITY. CM WAITING AUTHORIZATION FROM INSURANCE FOR PT TO RETURN TO SKILLED BED. FOR DISCHARGE, FAX DISCHARGE INFORMATION TO [facility] AT [phone]. NURSE REPORT TO BE CALLED TO [facility] AT [phone]. [facility] TO [facility]RANGE VAN TRANSPORT. Lev Lima, CASE MANAGEMENT Lev Lima DCP- Discharge Planning Updated by [id number]: Lev Lima on 01/24/19 12:[address] Patient Name: EMILIANO PATEL Encounter No: [id number] : 1935 Primary Insurance: HUMANA CHOICE PPO [facility] ADVANT Anticipated DC Date: Planned Disposition: Nursing Facility [facility] Cert External Planned Provider: [facility] DISCHARGE PLANNING NOTE: CM RECEIVED REQUEST FROM DAUGHTER, QING CHAU, , FOR PT TO HAVE SOMETHING FOR AGGITATION AND ANXIETY. CM NOTIFIED BEDSIDE NURSE. CM WAITING AUTHORIZATION FROM INSURANCE FOR PT TO RETURN TO SKILLED BED. FOR DISCHARGE, FAX DISCHARGE INFORMATION TO [facility] AT [phone]. NURSE REPORT TO BE CALLED TO [facility] AT [phone]. [facility] TO ARRANGE VAN TRANSPORT. KRISTI Waggoner DCP- Discharge Planning Updated by [id number]: Lev Lima on 01/22/19 4:[address] Patient Name: EMILIANO PATEL Encounter No: [id number] : 1935 Primary Insurance: HUMANA CHOICE PPO [facility] ADVANT Anticipated DC Date: Planned Disposition: Nursing Facility [facility] Cert External Planned Provider: [facility], MEDICARE REHAB BED DCP follow-up note: CM RECEIVED PHONE CALL FORM QING CHAU, DAUGHTER, , WHO INFORMED CM THAT PT LIVES AT [facility] AND [facility] IN [facility]WAY CARE; SHE PLANS FOR PT TO RETURN TO [facility] AND HAS DISCUSSED WITH NICOLA AT [facility] PT RETURNING TO SKILLED REHAB IF INSURANCE WILL APPROVE. QING ASKED THAT PAPERWORK BE FAXED FOR INSURANCE TO BE CONTACTED TO REQUEST INSURANCE AUTHORIZATION. CM COMPLETED CONSENT FORM FOR [facility]. CM CALLED [facility], , LEFT MESSAGE FOR [facility]O. CM FAXED REFERRAL TO [facility] AT [phone]. [facility] TO SUBMIT FOR AUTHORIZATION TO INSURANCE FOR PT TO RETURN TO SKILLED BED. FOR DISCHARGE, FAX DISCHARGE INFORMATION TO [facility] AT [phone]. NURSE REPORT TO BE CALLED TO [facility] AT [phone]. [facility] TO ARRANGE VAN TRANSPORT. Lev Lima, CASE MANAGEMENT DCP- Discharge Planning Updated by [id number]: Leeann Strong on 01/18/19 5:[address] CM met with patient/family to complete initial dc planning assessment. CM educated family on the CM role and verbal consent given by family to complete assessment. CM verified patient's address, phone number, and emergency contact phone numbers. Patient lives at [facility] and the staff is her primary caregiver. She requires total assistance with ADL's and medication management. At discharge patient plans to return to the nursing facility and family feels this is a safe discharge. Family denied any known discharge needs at this time. [place] van will transport patient to the facility at time of discharge. PCP: Dr. Kaplan, Pharmacy: [facility] provides medications. DME: [facility]. Emergency contacts and POA: Qing Chau (dtr) #[phone], Norah Barajas (dtr) [phone]. CM request daughter to bring a copy of POA to the nursing floor. Family denies that patient has been hospitalized within past 30 days. Transportation at ar will be the [place] van. CM will continue to follow and will assist as needed with dc plans/needs PRN. Leeann Strong RN Coverage Notice Reviewer: [id number] - Lev Lima Notice Issued Date-Time: 01/22/2019 14:00 Notice Type: Patient Choice Letter Notice Delivered To: Patient Relationship to Patient: Winemaker Name: Delivery Method: PHONE - Phone Yoana Days: Prior Verbal Notification: Recipient Understood Notice: Yes Recipient Signature: Yes Med Rec Note Co-signed by Attending: Coverage Notice Comment: [facility] Last DP export: 01/28/19 3:05 pm Patient Name: EMILIANO PATEL Page 12248 at 4578 All edits/amendments must be made on the electronic document DICTATION DATE: 01/28/191627 MEDICAL LABORATORY SCIENTIST: HELLEN 01/28/191627 RPT#: [id number] DC DATE: STATUS: ADM IN [facility] [address] [place] [address] END OF REPORT
--- NOTE | 2019-01-28 18:29 | NUR ---
WITHOUT CHANGES OR DISTRESS NOTED AT THIS TIME.
--- NOTE | 2019-01-28 18:34 | NUR ---
I have reviewed this patient and I concur with the Shift Assessment completed by the Licensed Practical Nurse today this shift.
[2019-01-28 20:00] VITALS: BP 130/56
[2019-01-29 00:41] VITALS: BP 115/49
[2019-01-29 04:00] VITALS: BP 124/56
[2019-01-29 05:28] LABS: BASOPHILS 0.1 % (0-2); EOSINOPHILS 0.4 % (0-7); HEMATOCRIT 32.7 % (36.0-48.0); HEMOGLOBIN 10.9 g/dL (12-16); IMMATURE GRANULOCYTES 0.4 % (0-5); LYMPHOCYTES 8.8 % (15-50); MCH 30.5 pg (26.0-34.0); MCHC 33.3 g/dL (31.0-37.0); MCV 91.6 fL (80.0-100.0); MEAN PLATELET VOLUME 10.4 fL (7.4-10.4); MONOCYTES 10.6 % (2-11); NEUTROPHILS 79.7 % (40-80); PLATELET COUNT 216 10x3/uL (130-400); RBC 3.57 10x6/uL (4.00-5.40); WBC 10.4 10x3/uL (4.8-10.8)
[2019-01-29 05:54] LABS: CALC OSMOLALITY 268 mosm/kg (275-300); CALCIUM 7.7 mg/dL (8.5-10.1); CARBON DIOXIDE 26.4 mmol/L (21.0-32.0); CHLORIDE - SERUM 100 mmol/L (98-107); CREATININE - SERUM 0.4 mg/dL (0.6-1.3); GLUCOSE 122 mg/dL (74-106); POTASSIUM - SERUM 3.1 mmol/L (3.5-5.1); SODIUM 135 mmol/L (136-145); UREA NITROGEN 6 mg/dL (7-18); eGFR NON AFRICAN AMERICAN > 90 mL/min (90-120)
--- NOTE | 2019-01-29 07:15 | NUR ---
ASSESSMENT DONE. WITHOUT DISTRESS NOTED
[2019-01-29 08:20] VITALS: BP 146/86
--- NOTE | 2019-01-29 10:23 | NUR ---
I have reviewed this patient and I concur with the Shift Assessment completed by the Licensed Practical Nurse today this shift.
[2019-01-29 11:38] VITALS: BP 138/76
--- NOTE | 2019-01-29 12:16 | NUR ---
PT ADMITTED D/T LEFT HIP FX. POST OP SHE WAS SENT TO [facility]. TODAY IT IS NOTED THAT PT HAS A DEEP TISSUE INJURY ON HER LEFT HEEL MEASURING 2CM X 2CM. RIGHT HEEL IS BOGGY AND SLOW TO ROSEANNE. RIGHT MEDIAL FOOT (BUNION 1CM X 1CM) IS RED AND SLOW TO ROSEANNE. RECOMMENDATIONS: TURN/REPOSITION Q 2 HOURS FLOAT HEELS WHERE THEY DO NOT TOUCH THE MATTRESS WOUND CARE CONTINUES TO MONITOR.
--- NOTE | 2019-01-29 12:59 | NUR ---
Nutrition Follow-up: Pt confused/disoriented. Overall PO intake remains poor. Noted per wound care, pt has deep tissue injury on her L heel and R heel is boggy and slow to kaitlin. Diet: Regular, Puree with thin liquids (aspiration precautions); Ensure Clear with meals PO intake: 29% avg x 10 meals Wt: 156# Last BM: 01/25 per chart Pt with severe malnutrition of acute injury R/T L hip fx AEB: 1. <=50% intake of est energy needs for >=5 days. 2. Muscle loss Rec initiate nutrition support; RD available to assist. Continue current diet as tolerated. +Franklyn BID. RD following.
--- NOTE | 2019-01-29 13:19 | NUR ---
OT NOTE: PT DOING MUCH BETTER TODAY. PT WAS RESTING WITHOUT CRYING OR FACIAL GRIMACING. ASSISTED PT WITH BED MOB WITH MAX ASSIST..PT WAS CRYING BUT NOT BAD PREVIOUSLY. SITTING ON EOB WITH MOD/MAX ASSIST. PT LEANING TO R TO PREVENT PRESSURE ON L HIP, THEREFORE, REQUIRES EXT ASSIST FOR SITTING BALANCE. ATTEMPTED TO STAND WITH MAX ASSIST X 2, HOWEVER, PT DID NOT BEAR WT THROUGH R LE AND IS NWB FOR L LE. HOWEVER, TODAY, PT PERFORMED MUCH BETTER THAN PREVIOUSLY RUT SANTO OTR/L
[2019-01-29 14:03] VITALS: BP 132/63
--- NOTE | 2019-01-29 16:19 | NUR ---
OT NOTE: PT COMPLETED SUPINE TO SIT WITH TOTAL A. PT COMPLETED SITTING BALANCE WITH MAX A. PT COMPLETED GROOMING TASK WITH TOTAL A. PT EXHIBITED INCREASED APPROPRIATE YES/NO RESPONSE THIS AM. PT EXHIBITED LESS ANXIETY/PAIN VOCALIZATIONS. PT EXHIBITED INCREASED FUNCTIONAL ABILITY TODAY. PT EXHIBITED INCREASED ACTIVITY TOLERANCE. THANK YOU, BOBY LOUISE
--- NOTE | 2019-01-29 18:04 | NUR ---
DAUGHTER AT SIDE. WITHOUT CHANGES OR DISTRESS NOTED AT THIS TIME.
--- NOTE | 2019-01-29 19:27 | NUR ---
BEDSIDE REPORT RECEIVED. PATIENT IS ALERT AND ORIENTED TO PERSON ONLY. RESPIRATIONS ARE EVEN AND UNLABORED. NO S/S OF DISTRESS. NO C/O PAIN. CALL LIGHT WITHIN REACH. WILL CPOC.
[2019-01-29 20:00] VITALS: BP 143/61
[2019-01-30] VITALS: BP 144/54
[2019-01-30 04:00] VITALS: BP 118/59
[2019-01-30 06:36] LABS: BASOPHILS 0.1 % (0-2); EOSINOPHILS 0.5 % (0-7); HEMATOCRIT 31.5 % (36.0-48.0); HEMOGLOBIN 10.8 g/dL (12-16); IMMATURE GRANULOCYTES 0.4 % (0-5); LYMPHOCYTES 6.9 % (15-50); MCHC 34.3 g/dL (31.0-37.0); MCV 90.5 fL (80.0-100.0); MEAN PLATELET VOLUME 10.8 fL (7.4-10.4); MONOCYTES 8.6 % (2-11); NEUTROPHILS 83.5 % (40-80); PLATELET COUNT 250 10x3/uL (130-400); RBC 3.48 10x6/uL (4.00-5.40); RDW 15.1 % (11.5-14.5); WBC 10.2 10x3/uL (4.8-10.8)
[2019-01-30 07:18] LABS: CALC OSMOLALITY 268 mosm/kg (275-300); CALCIUM 7.6 mg/dL (8.5-10.1); CARBON DIOXIDE 24.6 mmol/L (21.0-32.0); CHLORIDE - SERUM 101 mmol/L (98-107); CREATININE - SERUM 0.4 mg/dL (0.6-1.3); GLUCOSE 104 mg/dL (74-106); POTASSIUM - SERUM 3.9 mmol/L (3.5-5.1); SODIUM 136 mmol/L (136-145); UREA NITROGEN 5 mg/dL (7-18); eGFR NON AFRICAN AMERICAN > 90 mL/min (90-120)
[2019-01-30 08:00] VITALS: BP 105/56
--- NOTE | 2019-01-30 08:44 | MORECARE ---
CASE MANAGEMENT DISCHARGE SUMMARY PATIENT: EMILIANO PATEL UNIT: [id number] ADM DATE: 01/18/19 AGE: 83 : 35 SEX: F ROOM/BED: D.7148 AUTHOR: MIGUEL,DOC PHYSICIAN: REFERRING PHYSICIAN: MONSERRAT DUARTE DO DATE OF SERVICE: 01/30/19 Discharge Plan Patient Name: EMILIANO PATEL Facility: [facility]:[place] : 1935 Planned Disposition: [facility] Facility Anticipated Discharge Date: Discharge Date: Expected LOS: Initial Reviewer: [id number] Initial Review Date: 01/18/2019 Generated: 01/30/19 9:43 am Comments DCP- Discharge Planning Updated by [id number]: Lev Lima on 01/30/19 7:[address] Patient Name: EMILIANO PATEL Encounter No: [id number] : 1935 Primary Insurance: HUMANA CHOICE PPO MCR ADVANT Anticipated DC Date: Planned Disposition: [facility] Facility External Planned Provider: [facility] DCP follow-up note: CM CALLED AND SPOKE TO NEO AT [facility], PROVIDED UPDATE, . CM FAXED UPDATE TO [facility] AT [phone]. PT WILL NEED INSURANCE AUTHORIZATION FOR PT TO RETURN TO SKILLED BED; [facility] HAS NOT YET SUBMITTED FOR AUTH THEY ARE WAITING FOR PROJECTED DISCHARGE DATE. FOR DISCHARGE, FAX DISCHARGE INFORMATION TO [facility] AT [phone]. NURSE REPORT TO BE CALLED TO [facility] AT [phone]. [facility] TO ARRANGE VAN TRANSPORT. Lev Lima, CASE MANAGEMENT DCP- Discharge Planning Updated by [id number]: Lev Lima on 01/28/19 3:[address] Patient Name: EMILIANO PATEL Encounter No: [id number] : 1935 Primary Insurance: HUMANA CHOICE PPO MCR ADVANT Anticipated DC Date: Planned Disposition: [facility] Facility External Planned Provider: [facility] DCP follow-up note: CM REVIEWED GURU SCREENING COMPLETION FOR CLEARANCE TO RE ENTER [facility] FACILITY. CM CALLED AND SPOKE TO NICOLA AT [facility], PROVIDED UPDATE, . CM FAXED UPDATE WITH GURU SCREENING CLEARANCE LETTER TO [facility] AT [phone]. CM WAITING AUTHORIZATION FROM INSURANCE FOR PT TO RETURN TO SKILLED BED. FOR DISCHARGE, FAX DISCHARGE INFORMATION TO [facility] AT [phone]. NURSE REPORT TO BE CALLED TO [facility] AT [phone]. [facility] TO ARRANGE VAN TRANSPORT. KRISTI Waggoner DCP- Discharge Planning Updated by [id number]: Lev Lima on 01/24/19 12:[address] Patient Name: EMILIANO PATEL Encounter No: [id number] : 1935 Primary Insurance: HUMANA [place] PPO [facility] ADVANT Anticipated DC Date: Planned Disposition: Nursing Facility [facility] Cert External Planned Provider: [facility] DCP follow-up note: CM REVIEWED CHART, PT RECEIVING GEODON FOR AGGITATION. CM COMPLETED GURU SCREENING FORM, OBTAINED JS BAUMAN'S SIGNATURE. CM FAXED FOR ASSESSMENT TO [facility] AT [phone]. CM WAITING GURU SCREENING COMPLETION FOR CLEARANCE TO RE ENTER [facility] FACILITY. CM WAITING AUTHORIZATION FROM INSURANCE FOR PT TO RETURN TO SKILLED BED. FOR DISCHARGE, FAX DISCHARGE INFORMATION TO [facility] AT [phone]. NURSE REPORT TO BE CALLED TO [facility] AT [phone]. [facility] TO ARRANGE VAN TRANSPORT. KRISTI Waggoner DCP- Discharge Planning Updated by [id number]: Lev Lima on 01/24/19 12:[address] Patient Name: EMILIANO PATEL Encounter No: [id number] : 1935 Primary Insurance: HUMANA CHOICE PPO [facility] ADVANT Anticipated DC Date: Planned Disposition: Nursing Facility [facility] Cert External Planned Provider: [facility] DISCHARGE PLANNING NOTE: CM RECEIVED REQUEST FROM DAUGHTER, QING CHAU, , FOR PT TO HAVE SOMETHING FOR AGGITATION AND ANXIETY. CM NOTIFIED BEDSIDE NURSE. CM WAITING AUTHORIZATION FROM INSURANCE FOR PT TO RETURN TO SKILLED BED. FOR DISCHARGE, FAX DISCHARGE INFORMATION TO [facility] AT [phone]. NURSE REPORT TO BE CALLED TO [facility] AT [phone]. [facility] TO ARRANGE VAN TRANSPORT. KRISTI Waggoner DCP- Discharge Planning Updated by [id number]: Lev Lima on 01/22/19 4:[address] Patient Name: EMILIANO PATEL Encounter No: [id number] : 1935 Primary Insurance: HUMANA CHOICE PPO MCR ADVANT Anticipated DC Date: Planned Disposition: Nursing Facility [facility] Cert External Planned Provider: [facility], MEDICARE REHAB BED DCP follow-up note: CM RECEIVED PHONE CALL FORM QING CHAU, DAUGHTER, , WHO INFORMED CM THAT PT LIVES AT [facility] IN [facility] C[facility]; SHE PLANS FOR PT TO RETURN TO [facility] AND HAS DISCUSSED WITH NICOLA AT [facility] PT RETURNING TO SKILLED REHAB IF INSURANCE WILL APPROVE. QING ASKED THAT PAPERWORK BE FAXED FOR INSURANCE TO BE CONTACTED TO REQUEST INSURANCE AUTHORIZATION. CM COMPLETED CONSENT FORM FOR [facility]. CM CALLED [facility], , LEFT MESSAGE FOR [facility]. CM FAXED REFERRAL TO [facility] AT [phone]. [facility] TO SUBMIT FOR AUTHORIZATION TO INSURANCE FOR PT TO RETURN TO SKILLED BED. FOR DISCHARGE, FAX DISCHARGE INFORMATION TO [facility] AT [phone]. NURSE REPORT TO BE CALLED TO [facility] AT [phone]. [facility] TO ARRANGE VAN TRANSPORT. Lev Lima, CASE MANAGEMENT DCP- Discharge Planning Updated by [id number]: Leeann Strong on 01/18/19 5:[address] CM met with patient/family to complete initial dc planning assessment. CM educated family on the CM role and verbal consent given by family to complete assessment. CM verified patient's address, phone number, and emergency contact phone numbers. Patient lives at [facility] and the staff is her primary caregiver. She requires total assistance with ADL's and medication management. At discharge patient plans to return to the nursing facility and family feels this is a safe discharge. Family denied any known discharge needs at this time. [place] van will transport patient to the facility at time of discharge. PCP: Dr. Kaplan, Pharmacy: [facility] provides medications. DME: [facility]. Emergency contacts and POA: Qingnadia Chau (dtr) #[phone], Norah Barajas (dtr) [phone]. CM request daughter to bring a copy of POA to the nursing floor. Family denies that patient has been hospitalized within past 30 days. Transportation at dc will be the [place] van. CM will continue to follow and will assist as needed with dc plans/needs PRN. Leeann Strong RN Coverage Notice Reviewer: [id number] Vianey Lima Notice Issued Date-Time: 01/22/2019 14:00 Notice Type: Patient Choice Letter Notice Delivered To: Patient Relationship to Patient: Paramedical Aide Name: Delivery Method: PHONE - Phone Yoana Days: Prior Verbal Notification: Recipient Understood Notice: Yes Recipient Signature: Yes Med Rec Note Co-signed by Attending: Coverage Notice Comment: [facility] Last DP export: 01/28/19 3:28 pm Patient Name: EMILIANO PATEL Page [id number] at 0844 All edits/amendments must be made on the electronic document DICTATION DATE: 01/30/1943 STEEL RIGGER: HELLEN 01/30/19 0843 RPT#: [id number] DC DATE: STATUS: ADM IN [facility] [address] [place] [address] END OF REPORT
--- NOTE | 2019-01-30 10:37 | NUR ---
ASSISTED UP SOB WITH PT ASSIST. LARGE BRUICE NOTED TO LEFT CALF. WILL MONITOR.
--- NOTE | 2019-01-30 10:45 | NUR ---
SITTING UP IN CHAIR WITH PT ASSIST.
--- NOTE | 2019-01-30 11:53 | NUR ---
REDNESS AND BRUICING NOTED TO LEFT FOOT AFTER SITTING UP IN CHAIR. RASHMI WEINSTEIN PAGED.
[2019-01-30 12:45] VITALS: BP 115/62
--- NOTE | 2019-01-30 12:46 | NUR ---
OT NOTE: UPON ATTEMPTING TO MOVE PT IN BED, SHE WAS NOTED TO HAVE LARGE HEMATOMA/PRESSURE AREA ON DISTAL PORTION OF BACK OF LEG( APPROX 3" IN LENGTH BY 1")..ASSISTED PT TO EOB WITH MAX ASSIST. MAX ASSIST WITH EOB SITTING. PT CONTINUES TO LEAN TO R SIDE. 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 EITHER WAY, TRUNK STRENGTH IS POOR. TRANSFERRED TO CHAIR WITH TOTAL ASSIST. POSITIONED WITH PILLOWS TO R SIDE AND UNDER L KNEE AND ANKLE (WITH ATTEMPTS TO AVOID HEEL AND LOWER CALF.) DISCUSSED WITH TMT NURSE AND PTS NURSE. PT MAY NEED PRESSURE RELIEF MATTRESS TO PREVENT FURTHER BREAKDOWN. CHECKED ON PT APPROX 1.5 HRS LATER. SHE LOOKED VERY UNCOMFORTABLE IN CHAIR. ASSISTED PT BACK TO BED WITH MAX ASSIST X 2. PT LIFTS B LEGS WHEN ATTEMPTING TO TRANSFER. POSITIONED IN BED AND PLACED ON R SIDE. PILLOWS UNDER L LEG TO PREVENT ADD OF HIP. ALSO KEEPING PRESSURE OFF OF L CALF AND HEEL. RUT SANTO, OTR/L
--- NOTE | 2019-01-30 14:31 | NUR ---
CALLED SURGEONS OFFICE ABOUT DC LOVENOX PER RASHMI WEINSTEIN, HE WANTS LOVENOX CONT.
--- NOTE | 2019-01-30 14:33 | NUR ---
DTI of left heel is extending to posterior calf. It is deep red/purple in color.
[2019-01-30 16:58] VITALS: BP 116/47
[2019-01-30 20:00] VITALS: BP 103/61
[2019-01-31] VITALS: BP 126/62
[2019-01-31 04:00] VITALS: BP 129/63
[2019-01-31 06:08] LABS: CALC OSMOLALITY 267 mosm/kg (275-300); CALCIUM 7.5 mg/dL (8.5-10.1); CARBON DIOXIDE 22.8 mmol/L (21.0-32.0); CHLORIDE - SERUM 103 mmol/L (98-107); CREATININE - SERUM 0.4 mg/dL (0.6-1.3); GLUCOSE 110 mg/dL (74-106); SODIUM 135 mmol/L (136-145); UREA NITROGEN 4 mg/dL (7-18); eGFR NON AFRICAN AMERICAN > 90 mL/min (90-120)
[2019-01-31 06:09] LABS: POTASSIUM - SERUM 4.6 mmol/L (3.5-5.1)
[2019-01-31 07:43] LABS: BASOPHILS 0.1 % (0-2); EOSINOPHILS 0.8 % (0-7); HEMATOCRIT 31.7 % (36.0-48.0); HEMOGLOBIN 10.5 g/dL (12-16); IMMATURE GRANULOCYTES 0.2 % (0-5); LYMPHOCYTES 9.4 % (15-50); MCH 30.3 pg (26.0-34.0); MCHC 33.1 g/dL (31.0-37.0); MCV 91.6 fL (80.0-100.0); MEAN PLATELET VOLUME 10.5 fL (7.4-10.4); MONOCYTES 10.7 % (2-11); NEUTROPHILS 78.8 % (40-80); PLATELET COUNT 264 10x3/uL (130-400); RBC 3.46 10x6/uL (4.00-5.40); WBC 8.7 10x3/uL (4.8-10.8)
--- NOTE | 2019-01-31 07:49 | MORECARE ---
CASE MANAGEMENT DISCHARGE SUMMARY PATIENT: EMILIANO PATEL UNIT: [id number] ADM DATE: 01/18/19 AGE: 83 : 35 SEX: F ROOM/BED: D.9322 AUTHOR: CHATA RIVERA PHYSICIAN: REFERRING PHYSICIAN: MONSERRAT DUARTE DO DATE OF SERVICE: 01/31/19 Discharge Plan Patient Name: EMILIANO PATEL Facility: [facility]:[place] : 1935 Planned Disposition: Assisted Facility Anticipated Discharge Date: Discharge Date: Expected LOS: Initial Reviewer: [id number] Initial Review Date: 01/18/2019 Generated: 01/31/19 8:49 am Comments DCP- Discharge Planning Updated by [email or web address]: Lev Lima on 01/31/19 6:[address] Patient Name: EMILIANO PATEL Encounter No: [id number] : 1935 Primary Insurance: HUMANA CHOICE PPO MCR ADVANT Anticipated DC Date: Planned Disposition: Assisted Facility External Planned Provider: [facility] DCP follow-up note: CM REVIEWED CHART, FAXED UPDATE TO [place] AT [phone]. PT WILL NEED INSURANCE AUTHORIZATION FOR PT TO RETURN TO SKILLED BED; [place] HAS NOT YET SUBMITTED FOR AUTH THEY ARE WAITING FOR PROJECTED DISCHARGE DATE. FOR DISCHARGE, FAX DISCHARGE INFORMATION TO [place] AT [phone]. NURSE REPORT TO BE CALLED TO [place] AT [phone]. [place] TO ARRANGE VAN TRANSPORT. Lev Lima, KRISTI MANAGEMENT DCP- Discharge Planning Updated by [id number]: Lev Lima on 01/30/19 7:[address] Patient Name: EMILIANO PATEL Encounter No: [id number] : 1935 Primary Insurance: [employer]NA CHOICE PPO MCR ADVANT Anticipated DC Date: Planned Disposition: Assisted Facility External Planned Provider: [facility] DCP follow-up note: CM CALLED AND SPOKE TO NEO AT [facility], PROVIDED UPDATE, . CM FAXED UPDATE TO [place] AT [phone]. PT WILL NEED INSURANCE AUTHORIZATION FOR PT TO RETURN TO SKILLED BED; [place] HAS NOT YET SUBMITTED FOR AUTH THEY ARE WAITING FOR PROJECTED DISCHARGE DATE. FOR DISCHARGE, FAX DISCHARGE INFORMATION TO [place] AT [phone]. NURSE REPORT TO BE CALLED TO [place] AT [phone]. [place] TO ARRANGE VAN TRANSPORT. KRISTI Waggoner DCP- Discharge Planning Updated by [id number]: Lev Lima on 01/28/19 3:[address] Patient Name: EMILIANO PATEL Encounter No: [id number] : 1935 Primary Insurance: HUMANA [place] PPO [facility] ADVANT Anticipated DC Date: Planned Disposition: Assisted Facility External Planned Provider: [facility] DCP follow-up note: CM REVIEWED [facility]U SCREENING COMPLETION FOR CLEARANCE TO RE ENTER [facility]. CM CALLED AND SPOKE TO NICOLA AT [place], PROVIDED UPDATE, . CM FAXED UPDATE WITH [facility]U SCREENING CLEARANCE LETTER TO [place] AT [phone]. CM WAITING AUTHORIZATION FROM INSURANCE FOR PT TO RETURN TO SKILLED BED. FOR DISCHARGE, FAX DISCHARGE INFORMATION TO [place] AT [phone]. NURSE REPORT TO BE CALLED TO [place] AT [phone]. [place] TO ARRANGE VAN TRANSPORT. KRISTI Waggoner DCP- Discharge Planning Updated by [id number]: Lev Lima on 01/24/19 12:[address] Patient Name: EMILIANO PATEL Encounter No: [id number] : 1935 Primary Insurance: HUMANA CHOICE PPO [facility] ADVANT Anticipated DC Date: Planned Disposition: Nursing Facility [facility] Cert External Planned Provider: [facility] DCP follow-up note: CM REVIEWED CHART, PT RECEIVING GEODON FOR AGGITATION. CM COMPLETED GURU SCREENING FORM, OBTAINED JS BAUMAN'S SIGNATURE. CM FAXED FOR ASSESSMENT TO [facility] AT [phone]. CM WAITING GURU SCREENING COMPLETION FOR CLEARANCE TO RE ENTER CARE HOME [facility]ILITY. CM WAITING AUTHORIZATION FROM INSURANCE FOR PT TO RETURN TO SKILLED BED. FOR DISCHARGE, FAX DISCHARGE INFORMATION TO [place] AT [phone]. NURSE REPORT TO BE CALLED TO [place] AT [phone]. [place] TO ARRANGE VAN TRANSPORT. Lev Lima CASE MANAGEMENT Lev Lima DCP- Discharge Planning Updated by [email or web address]: Lev Lima on 01/24/19 12:[address] Patient Name: EMILIANO PATEL Encounter No: [id number] : 1935 Primary Insurance: HUMANA CHOICE PPO MCR ADVANT Anticipated DC Date: Planned Disposition: Nursing Facility [facility] Cert External Planned Provider: [facility] DISCHARGE PLANNING NOTE: CM RECEIVED REQUEST FROM DAUGHTER, QING CHAU, , FOR PT TO HAVE SOMETHING FOR AGGITATION AND ANXIETY. CM NOTIFIED BEDSIDE NURSE. CM WAITING AUTHORIZATION FROM INSURANCE FOR PT TO RETURN TO SKILLED BED. FOR DISCHARGE, FAX DISCHARGE INFORMATION TO [place] AT [phone]. NURSE REPORT TO BE CALLED TO [place] AT [phone]. [place] TO ARRANGE VAN TRANSPORT. Lev Lima, CASE MANAGEMENT DCP- Discharge Planning Updated by [id number]: Lev Lima on 01/22/19 4:[address] Patient Name: EMILIANO PATEL Encounter No: [id number] : 1935 Primary Insurance: HUMANA CHOICE PPO [facility] ADVANT Anticipated DC Date: Planned Disposition: Nursing Facility [facility] Cert External Planned Provider: [facility], MEDICARE REHAB BED DCP follow-up note: CM RECEIVED PHONE CALL FORM QING CHAU, DAUGHTER, , WHO INFORMED CM THAT PT LIVES AT [facility] IN [facility]; SHE PLANS FOR PT TO RETURN TO [place] AND HAS DISCUSSED WITH NICOLA AT [place] PT RETURNING TO SKILLED REHAB IF INSURANCE WILL APPROVE. QING ASKED THAT PAPERWORK BE FAXED FOR INSURANCE TO BE CONTACTED TO REQUEST INSURANCE AUTHORIZATION. CM COMPLETED CONSENT FORM FOR [facility]. CM CALLED [facility], , LEFT MESSAGE FOR [facility]. CM FAXED REFERRAL TO [place] AT [phone]. [place] TO SUBMIT FOR AUTHORIZATION TO INSURANCE FOR PT TO RETURN TO SKILLED BED. FOR DISCHARGE, FAX DISCHARGE INFORMATION TO [place] AT [phone]. NURSE REPORT TO BE CALLED TO [place] AT [phone]. [place] TO ARRANGE VAN TRANSPORT. Lev Lima, CASE MANAGEMENT DCP- Discharge Planning Updated by [id number]: Leeann Strong on 01/18/19 5:[address] CM met with patient/family to complete initial dc planning assessment. CM educated family on the CM role and verbal consent given by family to complete assessment. CM verified patient's address, phone number, and emergency contact phone numbers. Patient lives at [facility] and the staff is her primary caregiver. She requires total assistance with ADL's and medication management. At discharge patient plans to return to the nursing facility and family feels this is a safe discharge. Family denied any known discharge needs at this time. [facility] van will transport patient to the facility at time of discharge. PCP: Dr. Kaplan, Pharmacy: [facility] provides medications. DME: W/C bound. Emergency contacts and POA: Qing Chau (dtr) #[phone], Norah Barajas (dtr) [phone]. CM request daughter to bring a copy of POA to the nursing floor. Family denies that patient has been hospitalized within past 30 days. Transportation at [place] will be the [facility] van. CM will continue to follow and will assist as needed with dc plans/needs PRN. Leeann Strong RN Coverage Notice Reviewer: [id number] - Lev Lima Notice Issued Date-Time: 01/22/2019 14:00 Notice Type: Patient Choice Letter Notice Delivered To: Patient Relationship to Patient: Chemist Name: Delivery Method: PHONE - Phone Yoana Days: Prior Verbal Notification: Recipient Understood Notice: Yes Recipient Signature: Yes Med Rec Note Co-signed by Attending: Coverage Notice Comment: [facility] Last DP export: 01/30/19 7:44 am Patient Name: EMILIANO PATEL Page 44983 at 0749 All edits/amendments must be made on the electronic document DICTATION DATE: 01/31/19748 CINDER DUMP CRANE OPERATOR: HELLEN 01/31/1949 RPT#: [id number] DC DATE: STATUS: ADM IN [facility] [address] [place] [address] END OF REPORT
[2019-01-31 08:37] VITALS: BP 133/69
--- NOTE | 2019-01-31 09:48 | NUR ---
UP SOB WITH PT ASSIST. TELEMETRY CAF. WILL CONT. TO MONITOR.
[2019-01-31 12:25] VITALS: BP 108/66
--- NOTE | 2019-01-31 13:01 | NUR ---
Nutrition Follow-up: PO intake remains poor overall. Working with ST; one on one feeding assistance recommended. Per chart review, DTI of L heel is extending to posterior calf. Diet: Regular, Mechanical Soft with Thin Liquids (aspiration precautions) PO intake: 19% avg x 7 meals Wt: 157# Last BM: 01/25 per chart Labs reviewed Meds reviewed Rec initiate nutrition support 2/2 poor PO intake/wound. Discussed this with pt's nurse, Gloria. MD may consider Procalamine for time being but possibly TF 2/2 consistently poor PO intake. RD available for assistance. RD following.
[2019-01-31 15:32] VITALS: BP 119/51
--- NOTE | 2019-01-31 16:26 | NUR ---
OT NOTE: MAX ASSIST WITH ROLLING SIDE TO SIDE; MAX ASSIST FOR SUPINE TO SIT; MAX ASSIST TO MAINTAIN STATIC SITTING BALANCE ON EOB. WORKING ON TRUNK CONTROL RUT SANTO, OTR/L
--- NOTE | 2019-01-31 16:32 | NUR ---
OT NOTE: PT COMPLETED BED MOB TASKS WITH MAX A X 2. PT COMPLETED SUPINE TO SIT WITH MAX A X2. PT COMPLETED FACE WASH WITH MOD A. THANK YOU, BOBY LOUISE
--- NOTE | 2019-01-31 19:16 | NUR ---
RECEIVED BEDSIDE REPORT. PATIENT IS ALERT AND ORIENTED TO PERSON ONLY. RESPIRATIONS ARE EVEN AND UNLABORED. NO S/S OF DISTRESS. NO C/O PAIN. CALL LIGHT WITHIN REACH. WILL CPOC.
[2019-01-31 20:00] VITALS: BP 124/61
[2019-02-01] VITALS: BP 109/68
[2019-02-01 04:00] VITALS: BP 130/66
[2019-02-01 05:04] LABS: BASOPHILS 0.5 % (0-2); EOSINOPHILS 1.6 % (0-7); HEMOGLOBIN 11.7 g/dL (12-16); IMMATURE GRANULOCYTES 0.3 % (0-5); LYMPHOCYTES 11.3 % (15-50); MCHC 34.4 g/dL (31.0-37.0); MCV 90.2 fL (80.0-100.0); MEAN PLATELET VOLUME 11.2 fL (7.4-10.4); MONOCYTES 11.6 % (2-11); NEUTROPHILS 74.7 % (40-80); PLATELET COUNT 296 10x3/uL (130-400); RBC 3.77 10x6/uL (4.00-5.40); RDW 14.8 % (11.5-14.5); WBC 8.6 10x3/uL (4.8-10.8)
[2019-02-01 05:25] LABS: ALKALINE PHOSPHATASE 116 U/L (46-116); ALT (SGPT) 29 U/L (10-68); BILIRUBIN - TOTAL 1.19 mg/dL (0.2-1.3); CALCIUM 7.5 mg/dL (8.5-10.1); CARBON DIOXIDE 26.7 mmol/L (21.0-32.0); CHLORIDE - SERUM 101 mmol/L (98-107); CREATININE - SERUM 0.4 mg/dL (0.6-1.3); GLUCOSE 92 mg/dL (74-106); PROTEIN - SERUM 5.3 g/dL (6.4-8.2); SODIUM 136 mmol/L (136-145); eGFR NON AFRICAN AMERICAN > 90 mL/min (90-120)
[2019-02-01 05:26] LABS: CALC OSMOLALITY 269 mosm/kg (275-300); POTASSIUM - SERUM 3.9 mmol/L (3.5-5.1); UREA NITROGEN 6 mg/dL (7-18)
--- NOTE | 2019-02-01 07:27 | NUR ---
ASLEEP, RESPERATION REG AND NON LABORED. TELEMERTY SHOWS CAF. ROBLERO CATH TO GRAVITY BAG. LEFT LEG TENDER TO TOUCH. SOME BRUSING AND REDDNESS. HEEL PROCTERS ON. WILL MONITOR. DRSG TO LEFT HIP
[2019-02-01 09:35] VITALS: BP 132/65
--- NOTE | 2019-02-01 10:23 | NUR ---
PTS TOES TO LEFT FOOT BLUE AND NO PULSE FELT. DR SHORT NOTIFIED AND PT EXAMANINED. NO PULSE FOUND.
[2019-02-01 13:12] LABS: INR 2.01 (0.85-1.17); PROTIME 22.1 SECONDS (11.6-15.0)
--- NOTE | 2019-02-01 13:13 | NUR ---
I have reviewed this patient and I concur with the Shift Assessment completed by the Licensed Practical Nurse today this shift.
[2019-02-01 13:37] VITALS: BP 106/64
[2019-02-01 14:16] LABS: APTT > 200.0 SECONDS (22.8-39.4)
[2019-02-01 16:18] VITALS: Ht 152.4 cm; Wt 62.7 kg
--- NOTE | 2019-02-01 18:06 | NUR ---
PT LYING QUIETLY WITH EYES CLOSED. RESP REG AND NONE LABORED. TELEMERTY SHOWS CAF
[2019-02-01 21:35] VITALS: BP 131/63
[2019-02-02] VITALS: BP 138/75
[2019-02-02 04:00] VITALS: BP 120/74
[2019-02-02 05:14] LABS: BASOPHILS 0.3 % (0-2); EOSINOPHILS 1.4 % (0-7); HEMATOCRIT 34.9 % (36.0-48.0); HEMOGLOBIN 11.3 g/dL (12-16); IMMATURE GRANULOCYTES 0.2 % (0-5); LYMPHOCYTES 10.3 % (15-50); MCHC 32.4 g/dL (31.0-37.0); MONOCYTES 10.8 % (2-11); PLATELET COUNT 326 10x3/uL (130-400); RBC 3.77 10x6/uL (4.00-5.40); RDW 14.9 % (11.5-14.5); WBC 6.5 10x3/uL (4.8-10.8)
[2019-02-02 05:15] LABS: MCV 92.6 fL (80.0-100.0)
[2019-02-02 05:32] LABS: ALKALINE PHOSPHATASE 124 U/L (46-116); ALT (SGPT) 29 U/L (10-68); BILIRUBIN - TOTAL 1.01 mg/dL (0.2-1.3); CALC OSMOLALITY 274 mosm/kg (275-300); CARBON DIOXIDE 27.1 mmol/L (21.0-32.0); CHLORIDE - SERUM 105 mmol/L (98-107); CREATININE - SERUM 0.4 mg/dL (0.6-1.3); GLUCOSE 83 mg/dL (74-106); MAGNESIUM - SERUM 1.9 mg/dL (1.8-2.4); POTASSIUM - SERUM 3.5 mmol/L (3.5-5.1); PROTEIN - SERUM 5.5 g/dL (6.4-8.2); SODIUM 140 mmol/L (136-145); eGFR NON AFRICAN AMERICAN > 90 mL/min (90-120)
[2019-02-02 05:34] LABS: UREA NITROGEN 4 mg/dL (7-18)
--- NOTE | 2019-02-02 06:00 | NUR ---
PT HAS RESTED SINCE RECIEVING PARVIN AT BEDTIME. ANNIKA PATENT. IVF NS @ 30ML/HR INFUSING TO LEFT A/C. CLEAN/DRY AND HAS BEEN TURNED AND REPOSITIONED EVERY 2-3 HOURS SINCE SHE TENDS TO SLIDE DOWN AND LEAN TO THE RIGHT ON THE BED. LEFT LEG/HIP/FOOT/CALF ARE ALL STILL EXTENSIVELY BRUISED WITH EDEMA AND DIFFICULT TO PALPATE PEDAL PULSE/MD AWARE.
--- NOTE | 2019-02-02 07:30 | NUR ---
ALERT. ORIENTED TO PERSON. CONTROLLED AFIB ON 83 ON TELEMETRY. RECIEVING UPDRAFT TREATMENT. LT FOOT TOES COLD TO TOUCH. LT FOOT PEDAL PULSE NOT PALPABLE.
[2019-02-02 09:05] VITALS: BP 127/68
[2019-02-02 12:31] VITALS: BP 120/75
--- NOTE | 2019-02-02 13:53 | MORECARE ---
CASE MANAGEMENT DISCHARGE SUMMARY PATIENT: EMILIANO PATEL UNIT: [id number] ADM DATE: 01/18/19 AGE: 83 : 35 SEX: F ROOM/BED: D.5197 AUTHOR: MIGUEL,DOC PHYSICIAN: REFERRING PHYSICIAN: MONSERRAT DUARTE DO DATE OF SERVICE: 02/02/19 Discharge Plan Patient Name: EMILIANO PATEL Facility: [facility]:[place] : 1935 Planned Disposition: Halfway Facility Anticipated Discharge Date: Discharge Date: Expected LOS: Initial Reviewer: [id number] Initial Review Date: 01/18/2019 Generated: 02/02/19 2:53 pm Comments DCP- Discharge Planning Updated by [id number]: Qing Valiente on 02/02/19 12:[address] LATE ENTRY 1240 DR OSUNA NOTIFIED CM THAT THE FAMILY OF THE PATIENT WISH TO DISCUSS HOSPICE. THE ADULT CHILDREN ARE AT THE BEDSIDE. 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 THE PATIENT'S FAMILY CHOSE [facility] FROM THE PROVIDER LIST. TC [facility]. SPOKE WITH THE SERVICE. CM RECEIVED A CALLBACK AT 1246 FROM [facility]. DISCUSSED REFERRAL. CM FAXED FACE SHEET, H/P, 02/02 PROGRESS NOTE , MEDICATION LIST AND MD ORDER TO [phone]. CM SPOKE WITH THE PATIENT'S FAMILY TO CONFIRM REFERRAL. TELEPHONED SERVICE TO GIVE DAUGHTER, HUGH CISNEROS, CONTACT PHONE NUMBER THERE WAS NOT A HOSPITAL PHONE PRESENT IN THE PATIENT'S ROOM. HUGH CISNEROS- DTR- [phone]. REC CB THAT SOMEONE WOULD BE ON SITE WITHIN AN HOUR. DCP- Discharge Planning Updated by [id number]: Lev Lima on 01/31/19 6:[address] Patient Name: EMILIANO PATEL Encounter No: [id number] : 1935 Primary Insurance: HUMANA CHOICE PPO MCR ADVANT Anticipated DC Date: Planned Disposition: Halfway Facility External Planned Provider: [facility] DCP follow-up note: CM REVIEWED CHART, FAXED UPDATE TO [facility] AT [phone]. PT WILL NEED INSURANCE AUTHORIZATION FOR PT TO RETURN TO SKILLED BED; [facility] HAS NOT YET SUBMITTED FOR AUTH THEY ARE WAITING FOR PROJECTED DISCHARGE DATE. FOR DISCHARGE, FAX DISCHARGE INFORMATION TO [facility] AT [phone]. NURSE REPORT TO BE CALLED TO [facility] AT [phone]. [facility] TO ARRANGE VAN TRANSPORT. Lev Lima CASE MANAGEMENT DCP- Discharge Planning Updated by [id number]: Lev Lima on 01/30/19 7:[address] Patient Name: EMILIANO PATEL Encounter No: [id number] : 1935 Primary Insurance: HUMANA [employer] PPO MCR ADVANT Anticipated DC Date: Planned Disposition: Halfway Facility External Planned Provider: [facility] DCP follow-up note: CM CALLED AND SPOKE TO NEO AT [facility], PROVIDED UPDATE, . CM FAXED UPDATE TO [facility] AT [phone]. PT WILL NEED INSURANCE AUTHORIZATION FOR PT TO RETURN TO SKILLED BED; [facility] HAS NOT YET SUBMITTED FOR AUTH THEY ARE WAITING FOR PROJECTED DISCHARGE DATE. FOR DISCHARGE, FAX DISCHARGE INFORMATION TO [facility] AT [phone]. NURSE REPORT TO BE CALLED TO [facility] AT [phone]. [facility] TO ARRANGE VAN TRANSPORT. Lev Lima CASE MANAGEMENT DCP- Discharge Planning Updated by [id number]: Lev Lima on 01/28/19 3:[address] Patient Name: EMILIANO PATEL Encounter No: [id number] : 1935 Primary Insurance: HUMANA CHOICE PPO MCR ADVANT Anticipated DC Date: Planned Disposition: Halfway Facility External Planned Provider: [facility] DCP follow-up note: CM REVIEWED GURU SCREENING COMPLETION FOR CLEARANCE TO RE ENTER PRISON FACILITY. CM CALLED AND SPOKE TO NICOLA AT [facility], PROVIDED UPDATE, . CM FAXED UPDATE WITH [facility] SCREENING CLEARANCE LETTER TO [facility] AT [phone]. CM WAITING AUTHORIZATION FROM INSURANCE FOR PT TO RETURN TO SKILLED BED. FOR DISCHARGE, FAX DISCHARGE INFORMATION TO [facility] AT [phone]. NURSE REPORT TO BE CALLED TO [facility] AT [phone]. [facility] TO ARRANGE VAN TRANSPORT. Lev Lima CASE MANAGEMENT DCP- Discharge Planning Updated by [id number]: Lev Lima on 01/24/19 12:[address] Patient Name: EMILIANO PATEL Encounter No: [id number] : 1935 Primary Insurance: HUMANA CHOICE PPO MCR ADVANT Anticipated DC Date: Planned Disposition: Nursing Facility [employer] Cert External Planned Provider: [facility] DCP follow-up note: CM REVIEWED CHART, PT RECEIVING GEODON FOR AGGITATION. CM COMPLETED GURU SCREENING FORM, OBTAINED JS BAUMAN'S SIGNATURE. CM FAXED FOR ASSESSMENT TO [facility] AT [phone]. CM WAITING GURU SCREENING COMPLETION FOR CLEARANCE TO RE ENTER PRISON FACILITY. CM WAITING AUTHORIZATION FROM INSURANCE FOR PT TO RETURN TO SKILLED BED. FOR DISCHARGE, FAX DISCHARGE INFORMATION TO [facility] AT [phone]. NURSE REPORT TO BE CALLED TO [facility] AT [phone]. [facility] TO ARRANGE VAN TRANSPORT. Lev Lima, CASE MANAGEMENT Lev Lima DCP- Discharge Planning Updated by [id number]: Lev Lima on 01/24/19 12:[address] Patient Name: EMILIANO PATEL Encounter No: [id number] : 1935 Primary Insurance: HUMANA CHOICE PPO MCR ADVANT Anticipated DC Date: Planned Disposition: Nursing Facility [facility] External Planned Provider: [facility] DISCHARGE PLANNING NOTE: CM RECEIVED REQUEST FROM DAUGHTER, QING CHAU, , FOR PT TO HAVE SOMETHING FOR AGGITATION AND ANXIETY. CM NOTIFIED BEDSIDE NURSE. CM WAITING AUTHORIZATION FROM INSURANCE FOR PT TO RETURN TO SKILLED BED. FOR DISCHARGE, FAX DISCHARGE INFORMATION TO [facility] AT [phone]. NURSE REPORT TO BE CALLED TO [facility] AT [phone]. [facility] TO ARRANGE VAN TRANSPORT. Lev Lima CASE [place] DCP- Discharge Planning Updated by [id number]: Lev Lima on 01/22/19 4:[address] Patient Name: EMILIANO PATEL Encounter No: [id number] : 1935 Primary Insurance: HUMANA CHOICE PPO MCR ADVANT Anticipated DC Date: Planned Disposition: Nursing Facility [employer] Cert External Planned Provider: [facility] DCP follow-up note: CM RECEIVED PHONE CALL FORM QING CHAU, DAUGHTER, , WHO INFORMED CM THAT PT LIVES AT [facility] IN [facility] C[facility]; SHE PLANS FOR PT TO RETURN TO [facility] AND HAS DISCUSSED WITH NICOLA AT [facility] PT RETURNING TO SKILLED REHAB IF INSURANCE WILL APPROVE. QING ASKED THAT PAPERWORK BE FAXED FOR INSURANCE TO BE CONTACTED TO REQUEST INSURANCE AUTHORIZATION. CM COMPLETED CONSENT FORM FOR [facility]. [facility], , LEFT MESSAGE FOR [facility]. CM FAXED REFERRAL TO [facility] AT [phone]. [facility] TO SUBMIT FOR AUTHORIZATION TO INSURANCE FOR PT TO RETURN TO SKILLED BED. FOR DISCHARGE, FAX DISCHARGE INFORMATION TO [facility] AT [phone]. NURSE REPORT TO BE CALLED TO [facility] AT [phone]. [facility] TO ARRANGE VAN TRANSPORT. Lev Lima, CASE MANAGEMENT DCP- Discharge Planning Updated by [id number]: Leeann Strong on 01/18/19 5:[address] CM met with patient/family to complete initial dc planning assessment. CM educated family on the CM role and verbal consent given by family to complete assessment. CM verified patient's address, phone number, and emergency contact phone numbers. Patient lives at [facility] and the staff is her primary caregiver. She requires total assistance with ADL's and medication management. At discharge patient plans to return to the nursing facility and family feels this is a safe discharge. Family denied any known discharge needs at this time. [facility] van will transport patient to the facility at time of discharge. PCP: Dr. Kaplan, Pharmacy: [facility] provides medications. DME: W/C bound. Emergency contacts and POA: Qing Chau (dtr) #[phone], Norah Barajas (dtr) [phone]. CM request daughter to bring a copy of POA to the nursing floor. Family denies that patient has been hospitalized within past 30 days. Transportation at [place] be the [facility]. CM will continue to follow and will assist as needed with dc plans/needs PRN. Leeann Strong RN Coverage Notice Reviewer: [id number] - Lev Lima Notice Issued Date-Time: 01/22/2019 14:00 Notice Type: Patient Choice Letter Notice Delivered To: Patient Relationship to Patient: Web Content Producer Name: Delivery Method: PHONE - Phone Yonaa Days: Prior Verbal Notification: Recipient Understood Notice: Yes Recipient Signature: Yes Med Rec Note Co-signed by Attending: Coverage Notice Comment: [facility] Last DP export: 01/31/19 6:49 am Patient Name: EMILIANO PATEL Page 28342 at 1353 All edits/amendments must be made on the electronic document DICTATION DATE: 02/02/19 1353 PROFESSOR OF BIOSTATISTICS: HELLEN 02/02/19 1353 RPT#: [id number] DC DATE: STATUS: ADM IN [facility] [address] [place] [address] END OF REPORT
[2019-02-02 17:41] VITALS: BP 126/51
--- NOTE | 2019-02-02 18:37 | NUR ---
PULLED OUT IV. CONFUSED. HOSPICE CONSULT. PLAN TO DC TO [facility] ON HOSPICE TOMORROW. NO IV RESITE DUE TO DISCHARGE. CONTINUE COMFORT MEASURES. CONTINUE PLAN OF CARE AND SAFETY PRECAUTIONS.
--- NOTE | 2019-02-02 18:44 | MORECARE ---
CASE MANAGEMENT DISCHARGE SUMMARY PATIENT: EMILIANO PATEL UNIT: [id number] ADM DATE: 01/18/19 AGE: 83 : 35 SEX: F ROOM/BED: D.7225 AUTHOR: MIGUEL,DOC PHYSICIAN: REFERRING PHYSICIAN: MONSERRAT DUARTE DO DATE OF SERVICE: 02/02/19 Discharge Plan Patient Name: EMILIANO PATEL Facility: [facility]:[place] : 1935 Planned Disposition: Jail Facility Anticipated Discharge Date: Discharge Date: Expected LOS: Initial Reviewer: [id number] Initial Review Date: 01/18/2019 Generated: 02/02/19 7:44 pm Comments DCP- Discharge Planning Updated by [id number]: Qing Valiente on 02/02/19 12:[address] LATE ENTRY 1240 DR OSUNA NOTIFIED CM THAT THE FAMILY OF THE PATIENT WISH TO DISCUSS HOSPICE. THE ADULT CHILDREN ARE AT THE BEDSIDE. 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 THE PATIENT'S FAMILY [facility]OSE [facility] FROM THE PROVIDER LIST. TC [facility]. SPOKE WITH THE SERVICE. CM RECEIVED A CALLBACK AT 1246 FROM [facility]. DISCUSSED REFERRAL. CM FAXED FACE SHEET, H/P, 02/02 PROGRESS NOTE , MEDICATION LIST AND MD ORDER TO [phone]. CM SPOKE WITH THE PATIENT'S FAMILY TO CONFIRM REFERRAL. TELEPHONED SERVICE TO GIVE DAUGHTER, HUGH CISNEROS, CONTACT PHONE NUMBER THERE WAS NOT A HOSPITAL PHONE PRESENT IN THE PATIENT'S ROOM. HUGH CISNEROS- DTR- [phone]. REC CB THAT SOMEONE WOULD BE ON SITE WITHIN AN HOUR. DCP- Discharge Planning Updated by [id number]: Lev Lima on 01/31/19 6:[address] Patient Name: EMILIANO PATEL Encounter No: [id number] : 1935 Primary Insurance: [employer]NA CHOICE PPO MCR ADVANT Anticipated DC Date: Planned Disposition: Jail Facility External Planned Provider: [facility] DCP follow-up note: CM REVIEWED CHART, FAXED UPDATE TO [facility] AT [phone]. PT WILL NEED INSURANCE AUTHORIZATION FOR PT TO RETURN TO SKILLED BED; [facility] HAS NOT YET SUBMITTED FOR AUTH THEY ARE WAITING FOR PROJECTED DISCHARGE DATE. FOR DISCHARGE, FAX DISCHARGE INFORMATION TO [facility] AT [phone]. NURSE REPORT TO BE CALLED TO [facility] AT [phone]. [facility] TO ARRANGE VAN TRANSPORT. Lev Lima CASE MANAGEMENT DCP- Discharge Planning Updated by [id number]: Lev Lima on 01/30/19 7:[address] Patient Name: EMILIANO PATEL Encounter No: [id number] : 1935 Primary Insurance: HU[employer]NA [employer] PPO MCR ADVANT Anticipated DC Date: Planned Disposition: Jail Facility External Planned Provider: [facility] DCP follow-up note: CM CALLED AND SPOKE TO NEO AT [facility], PROVIDED UPDATE, . CM FAXED UPDATE TO [facility] AT [phone]. PT WILL NEED INSURANCE AUTHORIZATION FOR PT TO RETURN TO SKILLED BED; [facility] HAS NOT YET SUBMITTED FOR AUTH THEY ARE WAITING FOR PROJECTED DISCHARGE DATE. FOR DISCHARGE, FAX DISCHARGE INFORMATION TO [facility] AT [phone]. NURSE REPORT TO BE CALLED TO [facility] AT [phone]. [facility] TO [facility]RANGE VAN TRANSPORT. Lev Lima CASE MANAGEMENT DCP- Discharge Planning Updated by [id number]: Lev Lima on 01/28/19 3:[address] Patient Name: EMILIANO PATEL Encounter No: [id number] : 1935 Primary Insurance: HU[employer]NA CHOICE PPO MCR ADVANT Anticipated DC Date: Planned Disposition: Jail Facility External Planned Provider: [facility] DCP follow-up note: CM REVIEWED GURU SCREENING COMPLETION FOR CLEARANCE TO RE ENTER [facility]. CM CALLED AND SPOKE TO NICOLA AT [facility], PROVIDED UPDATE, . CM FAXED UPDATE WITH GURU SCREENING CLEARANCE LETTER TO [facility] AT [phone]. CM WAITING AUTHORIZATION FROM INSURANCE FOR PT TO RETURN TO SKILLED BED. FOR DISCHARGE, FAX DISCHARGE INFORMATION TO [facility] AT [phone]. NURSE REPORT TO BE CALLED TO [facility] AT [phone]. [facility] TO ARRANGE VAN TRANSPORT. Lev Lima CASE MANAGEMENT DCP- Discharge Planning Updated by [id number]: Lev Lima on 01/24/19 12:[address] Patient Name: EMILIANO PATEL Encounter No: [id number] : 1935 Primary Insurance: HUMANA CHOICE PPO MCR ADVANT Anticipated DC Date: Planned Disposition: Nursing Facility [facility] Cert External Planned Provider: [facility] DCP follow-up note: CM REVIEWED CHART, PT RECEIVING GEODON FOR AGGITATION. CM COMPLETED GURU SCREENING FORM, OBTAINED JS BAUMAN'S SIGNATURE. CM FAXED FOR ASSESSMENT TO [facility] AT [phone]. CM WAITING GURU SCREENING COMPLETION FOR CLEARANCE TO RE ENTER [facility]. CM WAITING AUTHORIZATION FROM INSURANCE FOR PT TO RETURN TO SKILLED BED. FOR DISCHARGE, FAX DISCHARGE INFORMATION TO [facility] AT [phone]. NURSE REPORT TO BE CALLED TO [facility] AT [phone]. [facility] TO ARRANGE VAN TRANSPORT. Lev Lima, CASE MANAGEMENT Lev Lima DCP- Discharge Planning Updated by [id number]: Lev Lima on 01/24/19 12:[address] Patient Name: MEILIANO PATEL Encounter No: [id number] : 1935 Primary Insurance: [employer] CHOICE PPO MCR ADVANT Anticipated DC Date: Planned Disposition: Nursing Facility [facility] External Planned Provider: [facility] DISCHARGE PLANNING NOTE: CM RECEIVED REQUEST FROM DAUGHTER, QING CHAU, , FOR PT TO HAVE SOMETHING FOR AGGITATION AND ANXIETY. CM NOTIFIED BEDSIDE NURSE. CM WAITING AUTHORIZATION FROM INSURANCE FOR PT TO RETURN TO SKILLED BED. FOR DISCHARGE, FAX DISCHARGE INFORMATION TO [facility] AT [phone]. NURSE REPORT TO BE CALLED TO [facility] AT [phone]. [facility] TO ARRANGE VAN TRANSPORT. Lev Lima CASE [place] DCP- Discharge Planning Updated by [email or web address]: Lev Lima on 01/22/19 4:[address] Patient Name: EMILIANO PATEL Encounter No: [id number] : 1935 Primary Insurance: HUMANA CHOICE PPO MCR ADVANT Anticipated DC Date: Planned Disposition: Nursing Facility [facility] Cert External Planned Provider: [facility] DCP follow-up note: CM RECEIVED PHONE CALL FORM QING CHAU, DAUGHTER, , WHO INFORMED CM THAT PT LIVES AT [facility] IN [facility]; SHE PLANS FOR PT TO RETURN TO [facility] AND HAS DISCUSSED WITH NICOLA AT [facility] PT RETURNING TO SKILLED REHAB IF INSURANCE WILL APPROVE. QING ASKED THAT PAPERWORK BE FAXED FOR INSURANCE TO BE CONTACTED TO REQUEST INSURANCE AUTHORIZATION. CM COMPLETED CONSENT FORM FOR [facility]. CM [facility]ED [facility], , LEFT MESSAGE FOR [facility]. CM FAXED REFERRAL TO [facility] AT [phone]. [facility] TO SUBMIT FOR AUTHORIZATION TO INSURANCE FOR PT TO RETURN TO SKILLED BED. FOR DISCHARGE, FAX DISCHARGE INFORMATION TO [facility] AT [phone]. NURSE REPORT TO BE CALLED TO [facility] AT [phone]. [facility] TO ARRANGE VAN TRANSPORT. Lev Lima, CASE MANAGEMENT DCP- Discharge Planning Updated by [id number]: Leeann Strong on 01/18/19 5:[address] CM met with patient/family to complete initial dc planning assessment. CM educated family on the CM role and verbal consent given by family to complete assessment. CM verified patient's address, phone number, and emergency contact phone numbers. Patient lives at [facility] and the staff is her primary caregiver. She requires total assistance with ADL's and medication management. At discharge patient plans to return to the nursing facility and family feels this is a safe discharge. Family denied any known discharge needs at this time. [facility] will transport patient to the facility at time of discharge. PCP: Dr. Kaplan, Pharmacy: [facility] provides medications. DME: W/C bound. Emergency contacts and POA: Qing Chau (dtr) #[phone], Norah Barajas (dtr) [phone]. CM request daughter to bring a copy of POA to the nursing floor. Family denies that patient has been hospitalized within past 30 days. Transportation at [place] will be the [facility] van. CM will continue to follow and will assist as needed with dc plans/needs PRN. Leeann Strong RN Coverage Notice Reviewer: [id number] - Lev Lima Notice Issued Date-Time: 01/22/2019 14:00 Notice Type: Patient Choice Letter Notice Delivered To: Patient Relationship to Patient: Director Of Automation Name: Delivery Method: PHONE - Phone Yoana Days: Prior Verbal Notification: Recipient Understood Notice: Yes Recipient Signature: Yes Med Rec Note Co-signed by Attending: Coverage Notice Comment: [facility] Last DP export: 02/02/19 12:53 pm Patient Name: EMILIANO PATEL Page [id number] at 1844 All edits/amendments must be made on the electronic document DICTATION DATE: 02/02/191843 EDGE MOLDER: HELLEN 02/02/191843 RPT#: [id number] DC DATE: STATUS: ADM IN [facility] [address] [place] [address] END OF REPORT
--- NOTE | 2019-02-02 18:51 | MORECARE ---
CASE MANAGEMENT DISCHARGE SUMMARY PATIENT: EMILIANO PATEL UNIT: [id number] ADM DATE: 01/18/19 AGE: 83 : 35 SEX: F ROOM/BED: D.8030 AUTHOR: MIGUEL,DOC PHYSICIAN: REFERRING PHYSICIAN: MONSERRAT DUARTE DO DATE OF SERVICE: 02/02/19 Discharge Plan Patient Name: EMILIANO PATEL Facility: [facility]:[place] : 1935 Planned Disposition: [facility] Facility Anticipated Discharge Date: Discharge Date: Expected LOS: Initial Reviewer: [id number] Initial Review Date: 01/18/2019 Generated: 02/02/19 7:50 pm Comments DCP- Discharge Planning Updated by [id number]: Qing Valiente on 02/02/19 5:[address] [facility] MET WITH THE FAMILY AT THE BEDSIDE THIS PM. REPORTEDLY DISCUSSED HOSPICE CARE. THE PLAN IS TO RETURN TO [facility] ON HOSPICE. [facility] TELEPHONED [facility] TO CONFIRM PLAN. DISCUSSED F/U BY HOSPICE IN THE AM WITH [facility]. RUT STATES SHE ALSO TOLD THE FAMILY TO SPEAK WITH [facility] THE " FIRST THING IN THE MORNING" CM TELEPHONE [facility] AND SPOKE WITH MIGUEL. ADVISED OF PRESENT PLAN AND THAT [facility] AND THE PATIENT'S FAMILY SHOULD BE CONTACTING THE OFFICE PERSONNEL IN THE AM. THE PATIENT IS A MANAGED MEDICARE SUBSCRIBER. DCP- Discharge Planning Updated by [id number]: Qing Valiente on 02/02/19 12:[address] LATE ENTRY 1240 DR OSUNA NOTIFIED [facility] THAT THE FAMILY OF THE PATIENT WISH TO DISCUSS HOSPICE. THE ADULT CHILDREN ARE AT THE BEDSIDE. THE PRIMARY NURSE PRESENTED THEM WITH THE HOSPICE CHOICE LIST [facility] WAS WORKING ON AN ICU TRANSFER. THE PATIENT'S FAMILY CHOSE [facility] FROM THE PROVIDER LIST. TC [facility]. SPOKE WITH THE SERVICE. ANYI RECEIVED A CALLBACK AT 1246 FROM [facility]. DISCUSSED REFERRAL. CM FAXED FACE SHEET, H/P, 02/02 PROGRESS NOTE , MEDICATION LIST AND MD ORDER TO [phone]. [facility] SPOKE WITH THE PATIENT'S FAMILY TO CONFIRM REFERRAL. TELEPHONED SERVICE TO GIVE DAUGHTER, HUGH CISNEROS, CONTACT PHONE NUMBER THERE WAS NOT A HOSPITAL PHONE PRESENT IN THE PATIENT'S ROOM. HUGH CISNEROS- DTR- [phone]. REC CB THAT SOMEONE WOULD BE ON SITE WITHIN AN HOUR. DCP- Discharge Planning Updated by [id number]: Lev Lima on 01/31/19 6:[address] Patient Name: EMILIANO PATEL Encounter No: [id number] : 1935 Primary Insurance: HUMANA CHOICE PPO MCR ADVANT Anticipated DC Date: Planned Disposition: [facility] Facility External Planned Provider: [facility] DCP follow-up note: CM REVIEWED CHART, FAXED UPDATE TO [facility] AT [phone]. PT WILL NEED INSURANCE AUTHORIZATION FOR PT TO RETURN TO SKILLED BED; [facility] HAS NOT YET SUBMITTED FOR AUTH THEY ARE WAITING FOR PROJECTED DISCHARGE DATE. FOR DISCHARGE, FAX DISCHARGE INFORMATION TO [facility] AT [phone]. NURSE REPORT TO BE CALLED TO [facility] AT [phone]. [facility] TO ARRANGE VAN TRANSPORT. KRISTI Waggoner MANAGEMENT DCP- Discharge Planning Updated by [id number]: Lev Lima on 01/30/19 7:[address] Patient Name: EMILIANO PATEL Encounter No: [id number] : 1935 Primary Insurance: HUMANA CHOICE PPO MCR ADVANT Anticipated DC Date: Planned Disposition: [facility] Facility External Planned Provider: [facility] DCP follow-up note: CM CALLED AND SPOKE TO NEO AT [facility], PROVIDED UPDATE, . CM FAXED UPDATE TO [facility] AT [phone]. PT WILL NEED INSURANCE AUTHORIZATION FOR PT TO RETURN TO SKILLED BED; [facility] HAS NOT YET SUBMITTED FOR AUTH THEY ARE WAITING FOR PROJECTED DISCHARGE DATE. FOR DISCHARGE, FAX DISCHARGE INFORMATION TO [facility] AT [phone]. NURSE REPORT TO BE CALLED TO [facility] AT [phone]. [facility] TO ARRANGE VAN TRANSPORT. Lev Lima CASE MANAGEMENT DCP- Discharge Planning Updated by [id number]: Lev Lima on 01/28/19 3:[address] Patient Name: EMILIANO PATEL Encounter No: [id number] : 1935 Primary Insurance: HUMANA CHOICE PPO MCR ADVANT Anticipated DC Date: Planned Disposition: [facility] Facility External Planned Provider: [facility] DCP follow-up note: CM REVIEWED GURU SCREENING COMPLETION FOR CLEARANCE TO RE ENTER [facility]. CM CALLED AND SPOKE TO NICOLA AT [facility], PROVIDED UPDATE, . CM FAXED UPDATE WITH GURU SCREENING CLEARANCE LETTER TO [facility] AT [phone]. CM WAITING AUTHORIZATION FROM INSURANCE FOR PT TO RETURN TO SKILLED BED. FOR DISCHARGE, FAX DISCHARGE INFORMATION TO [facility] AT [phone]. NURSE REPORT TO BE CALLED TO [facility] AT [phone]. [facility] TO ARRANGE VAN TRANSPORT. KRISTI Waggoner DCP- Discharge Planning Updated by [id number]: Lev Lima on 01/24/19 12:[address] Patient Name: EMILIANO PATEL Encounter No: [id number] : 1935 Primary Insurance: HUMANA CHOICE PPO MCR ADVANT Anticipated DC Date: Planned Disposition: Nursing Facility [facility] Cert External Planned Provider: [facility] DCP follow-up note: CM REVIEWED CHART, PT RECEIVING GEODON FOR AGGITATION. CM COMPLETED GURU SCREENING FORM, OBTAINED JS BAUMAN'S SIGNATURE. CM FAXED FOR ASSESSMENT TO [facility] AT [phone]. CM WAITING GURU SCREENING COMPLETION FOR CLEARANCE TO RE ENTER [facility]. CM WAITING AUTHORIZATION FROM INSURANCE FOR PT TO RETURN TO SKILLED BED. FOR DISCHARGE, FAX DISCHARGE INFORMATION TO [facility] AT [phone]. NURSE REPORT TO BE CALLED TO [facility] AT [phone]. [facility] TO ARRANGE VAN TRANSPORT. Lev Lima CASE MANAGEMENT Lev Lima DCP- Discharge Planning Updated by [id number]: Lev Lima on 01/24/19 12:[address] Patient Name: EMILIANO PATEL Encounter No: [id number] : 1935 Primary Insurance: HU[employer]NA CHOICE PPO MCR ADVANT Anticipated DC Date: Planned Disposition: Nursing Facility [facility] Cert External Planned Provider: [facility] DISCHARGE PLANNING NOTE: CM RECEIVED REQUEST FROM DAUGHTER, QING ROSA, , FOR PT TO HAVE SOMETHING FOR AGGITATION AND ANXIETY. CM NOTIFIED BEDSIDE NURSE. CM WAITING AUTHORIZATION FROM INSURANCE FOR PT TO RETURN TO SKILLED BED. FOR DISCHARGE, FAX DISCHARGE INFORMATION TO [facility] AT [phone]. NURSE REPORT TO BE CALLED TO [facility] AT [phone]. [facility] TO ARRANGE VAN TRANSPORT. KRISTI Waggoner MANAGEMENT DCP- Discharge Planning Updated by [id number]: Lev Lima on 01/22/19 4:[address] Patient Name: EMILIANO PATEL Encounter No: [id number] : 1935 Primary Insurance: HUMANA CHOICE PPO MCR ADVANT Anticipated DC Date: Planned Disposition: Nursing Facility [facility] Cert External Planned Provider: [facility], MEDICARE REHAB BED DCP follow-up note: CM RECEIVED PHONE CALL FORM QING ROSA, DAUGHTER, , WHO INFORMED CM THAT PT LIVES AT [facility] IN [facility]; SHE PLANS FOR PT TO RETURN TO [facility] AND HAS DISCUSSED WITH NICOLA AT [facility] PT RETURNING TO SKILLED REHAB IF INSURANCE WILL APPROVE. QING ASKED THAT PAPERWORK BE FAXED FOR INSURANCE TO BE CONTACTED TO REQUEST INSURANCE AUTHORIZATION. CM COMPLETED CONSENT FORM FOR [facility]. CM CALLED [facility], , LEFT MESSAGE FOR [facility]. CM FAXED REFERRAL TO [facility] AT [phone]. [facility] TO SUBMIT FOR AUTHORIZATION TO INSURANCE FOR PT TO RETURN TO SKILLED BED. FOR DISCHARGE, FAX DISCHARGE INFORMATION TO [facility] AT [phone]. NURSE REPORT TO BE CALLED TO [facility] AT [phone]. [facility] TO ARRANGE VAN TRANSPORT. KRISTI Waggoner DCP- Discharge Planning Updated by [id number]: Leeann Strong on 01/18/19 5:[address] CM met with patient/family to complete initial dc planning assessment. CM educated family on the CM role and verbal consent given by family to complete assessment. CM verified patient's address, phone number, and emergency contact phone numbers. Patient lives at [facility] and the staff is her primary caregiver. She requires total assistance with ADL's and medication management. At discharge patient plans to return to the nursing facility and family feels this is a safe discharge. Family denied any known discharge needs at this time. [facility] van will transport patient to the facility at time of discharge. PCP: Dr. Kaplan, Pharmacy: [facility] provides medications. DME: W/C bound. Emergency contacts and POA: Qing Kandi (dtr) #[phone], Norah Barajas (dtr) [phone]. CM request daughter to bring a copy of POA to the nursing floor. Family denies that patient has been hospitalized within past 30 days. Transportation at dc will be the [facility] van. CM will continue to follow and will assist as needed with dc plans/needs PRN. Leeann Strong RN Coverage Notice Reviewer: [id number] Vianey Lima Notice Issued Date-Time: 01/22/2019 14:00 Notice Type: Patient Choice Letter Notice Delivered To: Patient Relationship to Patient: Nurse Staff Industrial Name: Delivery Method: PHONE - Phone Yoana Days: Prior Verbal Notification: Recipient Understood Notice: Yes Recipient Signature: Yes Med Rec Note Co-signed by Attending: Coverage Notice Comment: [facility] Last DP export: 02/02/19 5:44 pm Patient Name: EMILIANO PATEL Page 70812 at 1851 All edits/amendments must be made on the electronic document DICTATION DATE: 02/02/191849 TELEPHONE PLANT POWER OPERATOR: HELLEN 02/02/191849 RPT#: [id number] DC DATE: STATUS: ADM IN [facility] [address] [place] [address] END OF REPORT
--- NOTE | 2019-02-02 19:34 | MORECARE ---
CASE MANAGEMENT DISCHARGE SUMMARY PATIENT: EMILIANO PATEL UNIT: [id number] ADM DATE: 01/18/19 AGE: 83 : 35 SEX: F ROOM/BED: D.6162 AUTHOR: MIGUEL,DOC PHYSICIAN: REFERRING PHYSICIAN: MONSERRAT DUARTE DO DATE OF SERVICE: 02/02/19 Discharge Plan Patient Name: EMILIANO PATEL Facility: [facility]:[place] : 1935 Planned Disposition: Jail Facility Anticipated Discharge Date: Discharge Date: Expected LOS: Initial Reviewer: [id number] Initial Review Date: 01/18/2019 Generated: 02/02/19 8:33 pm Comments DCP- Discharge Planning Updated by [id number]: Qing Valiente on 02/02/19 6:[address] LATE ENTRY 1240 DR TABARES NOTIFIED ANYI THAT THE FAMILY OF THE PATIENT WISH TO DISCUSS HOSPICE. THE ADULT CHILDREN ARE AT THE BEDSIDE. THE PRIMARY NURSE PRESENTED THEM WITH THE HOSPICE CHOICE LIST ANYI WAS WORKING ON AN ICU TRANSFER. THE PATIENT'S FAMILY CHOSE [facility] FROM THE PROVIDER LIST. TC TO [facility]. SPOKE WITH THE SERVICE. ANYI RECEIVED A CALLBACK AT 1246 FROM [facility]. DISCUSSED REFERRAL. ANYI FAXED FACE SHEET, H/P, 02/02 PROGRESS NOTE , MEDICATION LIST AND MD ORDER TO [phone]. ANYI SPOKE WITH THE PATIENT'S FAMILY TO CONFIRM REFERRAL. TELEPHONED SERVICE TO GIVE DAUGHTER, HUGH CISNEROS, CONTACT PHONE NUMBER THERE WAS NOT A HOSPITAL PHONE PRESENT IN THE PATIENT'S ROOM. HUGH CISNEROS- DTR- [phone]. REC CB THAT SOMEONE WOULD BE ON SITE WITHIN AN HOUR. Appended by Qing Valiente on 02/02/2019 19:32 CDT: CORRECTION [facility]- CONTACT [facility] DCP- Discharge Planning Updated by [id number]: Qing Valiente on 02/02/19 5:[address] [facility] MET WITH THE FAMILY AT THE BEDSIDE THIS PM. REPORTEDLY DISCUSSED HOSPICE CARE. THE PLAN IS TO RETURN TO [facility] ON HOSPICE. ANYI TELEPHONED [facility] TO CONFIRM PLAN. DISCUSSED F/U BY HOSPICE IN THE AM WITH [facility]. RUT STATES SHE ALSO TOLD THE FAMILY TO SPEAK WITH [facility] THE " FIRST THING IN THE MORNING" CM TELEPHONE [facility] AND SPOKE WITH MIGUEL. ADVISED OF PRESENT PLAN AND THAT [facility] HOSPICE AND THE PATIENT'S FAMILY SHOULD BE CONTACTING THE OFFICE PERSONNEL IN THE AM. THE PATIENT IS A MANAGED MEDICARE SUBSCRIBER. DCP- Discharge Planning Updated by [id number]: Lev Lima on 01/31/19 6:[address] Patient Name: EMILIANO PATEL Encounter No: [id number] : 1935 Primary Insurance: HUMANA CHOICE PPO [facility] ADVANT Anticipated DC Date: Planned Disposition: Jail Facility External Planned Provider: [facility] DCP follow-up note: CM REVIEWED CHART, FAXED UPDATE TO [facility] AT [phone]. PT WILL NEED INSURANCE AUTHORIZATION FOR PT TO RETURN TO SKILLED BED; [facility] HAS NOT YET SUBMITTED FOR AUTH THEY ARE WAITING FOR PROJECTED DISCHARGE DATE. FOR DISCHARGE, FAX DISCHARGE INFORMATION TO [facility] AT [phone]. NURSE REPORT TO BE CALLED TO [facility] AT [phone]. [facility] TO ARRANGE VAN TRANSPORT. KRISTI Waggoner DCP- Discharge Planning Updated by [id number]: Lev Lima on 01/30/19 7:[address] Patient Name: EMILIANO APTEL Encounter No: [id number] : 1935 Primary Insurance: HUMANA CHOICE PPO [facility] ADVANT Anticipated DC Date: Planned Disposition: Jail Facility External Planned Provider: [facility] DCP follow-up note: CM CALLED AND SPOKE TO NEO AT [facility], PROVIDED UPDATE, . CM FAXED UPDATE TO [facility] AT [phone]. PT WILL NEED INSURANCE AUTHORIZATION FOR PT TO RETURN TO SKILLED BED; [facility] HAS NOT YET SUBMITTED FOR AUTH THEY ARE WAITING FOR PROJECTED DISCHARGE DATE. FOR DISCHARGE, FAX DISCHARGE INFORMATION TO [facility] AT [phone]. NURSE REPORT TO BE CALLED TO [facility] AT [phone]. [facility] TO ARRANGE VAN TRANSPORT. KRISTI Waggoner MANAGEMENT DCP- Discharge Planning Updated by [id number]: Lev Lima on 01/28/19 3:[address] Patient Name: EMILIANO PATEL Encounter No: [id number] : 1935 Primary Insurance: HUMANA CHOICE PPO MCR ADVANT Anticipated DC Date: Planned Disposition: Jail Facility External Planned Provider: [facility] DCP follow-up note: CM REVIEWED [facility]GRU SCREENING COMPLETION FOR CLEARANCE TO RE ENTER SNF FACILITY. CM CALLED AND SPOKE TO NICOLA AT [facility], PROVIDED UPDATE, . CM FAXED UPDATE WITH GURU SCREENING CLEARANCE LETTER TO [facility] AT [phone]. CM WAITING AUTHORIZATION FROM INSURANCE FOR PT TO RETURN TO SKILLED BED. FOR DISCHARGE, FAX DISCHARGE INFORMATION TO [facility] AT [phone]. NURSE REPORT TO BE CALLED TO [facility] AT [phone]. [facility] TO ARRANGE VAN TRANSPORT. KRISTI Waggoner DCP- Discharge Planning Updated by [id number]: Lev Lima on 01/24/19 12:[address] Patient Name: EMILIANO PATEL Encounter No: [id number] : 1935 Primary Insurance: HUMANA CHOICE PPO MCR ADVANT Anticipated DC Date: Planned Disposition: Nursing Facility [facility] External Planned Provider: [facility] DCP follow-up note: CM REVIEWED CHART, PT RECEIVING GEODON FOR AGGITATION. CM COMPLETED GURU SCREENING FORM, OBTAINED JS BAUMAN'S SIGNATURE. CM FAXED FOR ASSESSMENT TO [facility] AT [phone]. CM WAITING GURU SCREENING COMPLETION FOR CLEARANCE TO RE ENTER SNF FACILITY. CM WAITING AUTHORIZATION FROM INSURANCE FOR PT TO RETURN TO SKILLED BED. FOR DISCHARGE, FAX DISCHARGE INFORMATION TO [facility] AT [phone]. NURSE REPORT TO BE CALLED TO [facility] AT [phone]. [facility] TO ARRANGE VAN TRANSPORT. Lev Lima, CASE MANAGEMENT Lev Lima DCP- Discharge Planning Updated by [id number]: Lev Lima on 01/24/19 12:[address] Patient Name: EMILIANO PATEL Encounter No: [id number] : 1935 Primary Insurance: HUMANA CHOICE PPO MCR ADVANT Anticipated DC Date: Planned Disposition: Nursing Facility [facility] External Planned Provider: [facility] DISCHARGE PLANNING NOTE: CM RECEIVED REQUEST FROM DAUGHTER, QING CHAU, , FOR PT TO HAVE SOMETHING FOR AGGITATION AND ANXIETY. CM NOTIFIED BEDSIDE NURSE. CM WAITING AUTHORIZATION FROM INSURANCE FOR PT TO RETURN TO SKILLED BED. FOR DISCHARGE, FAX DISCHARGE INFORMATION TO [facility] AT [phone]. NURSE REPORT TO BE CALLED TO [facility] AT [phone]. [facility] TO ARRANGE VAN TRANSPORT. KRISTI Waggoner DCP- Discharge Planning Updated by [id number]: Lev Lima on 01/22/19 4:[address] Patient Name: EMILIANO PATEL Encounter No: [id number] : 1935 Primary Insurance: HUMANA CHOICE PPO MCR ADVANT Anticipated DC Date: Planned Disposition: Nursing Facility [facility] External Planned Provider: [facility], MEDICARE REHAB BED DCP follow-up note: CM RECEIVED PHONE CALL FORM QING CHAU, DAUGHTER, , WHO INFORMED CM THAT PT LIVES AT [facility] IN [facility]; SHE PLANS FOR PT TO RETURN TO [place] AND HAS DISCUSSED WITH NICOLA AT [facility] PT RETURNING TO SKILLED REHAB IF INSURANCE WILL APPROVE. QING ASKED THAT PAPERWORK BE FAXED FOR INSURANCE TO BE CONTACTED TO REQUEST INSURANCE AUTHORIZATION. CM COMPLETED CONSENT FORM FOR [facility]. CM CALLED [facility], , LEFT MESSAGE FOR [facility]. CM FAXED REFERRAL TO [facility] AT [phone]. [facility] TO SUBMIT FOR AUTHORIZATION TO INSURANCE FOR PT TO RETURN TO SKILLED BED. FOR DISCHARGE, FAX DISCHARGE INFORMATION TO [facility] AT [phone]. NURSE REPORT TO BE CALLED TO [facility] AT [phone]. [facility] TO ARRANGE VAN TRANSPORT. KRISTI Waggoner DCP- Discharge Planning Updated by [id number]: Leeann Strong on 01/18/19 5:[address] CM met with patient/family to complete initial dc planning assessment. CM educated family on the CM role and verbal consent given by family to complete assessment. CM verified patient's address, phone number, and emergency contact phone numbers. Patient lives at [facility] and the staff is her primary caregiver. She requires total assistance with ADL's and medication management. At discharge patient plans to return to the nursing facility and family feels this is a safe discharge. Family denied any known discharge needs at this time. [facility] van will transport patient to the facility at time of discharge. PCP: Dr. Kaplan, Pharmacy: [facility] provides medications. DME: W/C bound. Emergency contacts and POA: Qing Chau (dtr) #[phone], Norah Barajas (dtr) [phone]. CM request daughter to bring a copy of POA to the nursing floor. Family denies that patient has been hospitalized within past 30 days. Transportation at dc will be the [facility] van. CM will continue to follow and will assist as needed with dc plans/needs PRN. Leeann Strong RN Coverage Notice Reviewer: [id number] Vianey Lima Notice Issued Date-Time: 01/22/2019 14:00 Notice Type: Patient Choice Letter Notice Delivered To: Patient Relationship to Patient: Assistant Plant Controller Name: Delivery Method: PHONE - Phone Yoana Days: Prior Verbal Notification: Recipient Understood Notice: Yes Recipient Signature: Yes Med Rec Note Co-signed by Attending: Coverage Notice Comment: [facility] Last DP export: 02/02/19 5:51 pm Patient Name: EMILIANO PATEL Page 36650 at 1934 All edits/amendments must be made on the electronic document DICTATION DATE: 02/02/191932 TOOL ROOM ATTENDANT: HELLEN 02/02/191932 RPT#: [id number] DC DATE: STATUS: ADM IN [facility] [address] [place] [address] END OF REPORT
[2019-02-02 20:00] VITALS: BP 110/60
--- NOTE | 2019-02-02 20:00 | NUR ---
INITIAL ROUNDS AND ASSESSMENT COMPLETED. PT RESTING IN BED. NONLABORED RESPIRATIONS ON ROOM AIR. ROBLERO PATENT TO BEDSIDE DRAIN BAG. NO IV ACCESS, PT HAS PULLED IT OUT. LEFT HIP/THIGH WITH EXTENSIVE BRUISING/SOME SWELLING. LEFT CALF WITH BRUISING/SWELLING AND LEFT FOOT MOTTLED/SWOLLEN/DISCOLORED WITH PULSE VERY HARD TO VERIFY, EVEN WITH DOPPLER (MD AWARE). PT ALERT/CONFUSED AND WILL HAVE PERIODS OF YELLING OUT IN CONFUSION/CRYING/AGITATION. CPOC.
[2019-02-03 00:01] VITALS: BP 117/51
[2019-02-03 04:00] VITALS: BP 104/58
--- NOTE | 2019-02-03 05:35 | NUR ---
PT HAS RESTED THROUGH THE NIGHT WITH NO YELLING OR SIGNS OF DISCOMFORT. NO CHANGE FROM INITIAL SHIFT ASSESSMENT. ROBLERO PATENT.
[2019-02-03 06:01] LABS: BASOPHILS 0.1 % (0-2); EOSINOPHILS 0.9 % (0-7); HEMATOCRIT 33.5 % (36.0-48.0); HEMOGLOBIN 11.1 g/dL (12-16); IMMATURE GRANULOCYTES 0.2 % (0-5); LYMPHOCYTES 9.1 % (15-50); MCH 30.2 pg (26.0-34.0); MCHC 33.1 g/dL (31.0-37.0); MCV 91.3 fL (80.0-100.0); MONOCYTES 8.3 % (2-11); NEUTROPHILS 81.4 % (40-80); PLATELET COUNT 390 10x3/uL (130-400); RBC 3.67 10x6/uL (4.00-5.40); RDW 14.6 % (11.5-14.5)
[2019-02-03 06:29] LABS: ALBUMIN 2.1 g/dL (3.4-5.0); ALKALINE PHOSPHATASE 124 U/L (46-116); ALT (SGPT) 30 U/L (10-68); BILIRUBIN - TOTAL 1.07 mg/dL (0.2-1.3); CALCIUM 7.6 mg/dL (8.5-10.1); CARBON DIOXIDE 26.2 mmol/L (21.0-32.0); CHLORIDE - SERUM 102 mmol/L (98-107); CREATININE - SERUM 0.4 mg/dL (0.6-1.3); GLUCOSE 104 mg/dL (74-106); MAGNESIUM - SERUM 1.8 mg/dL (1.8-2.4); PROTEIN - SERUM 5.5 g/dL (6.4-8.2); SODIUM 137 mmol/L (136-145); eGFR NON AFRICAN AMERICAN > 90 mL/min (90-120)
[2019-02-03 06:30] LABS: CALC OSMOLALITY 271 mosm/kg (275-300); UREA NITROGEN 7 mg/dL (7-18)
[2019-02-03 06:31] LABS: POTASSIUM - SERUM 2.5 mmol/L (3.5-5.1); WBC 8.7 10x3/uL (4.8-10.8)
--- NOTE | 2019-02-03 07:40 | NUR ---
CONFUSED, LAYING IN BED. ATTEMPT REPOSITIONING IN BED BEFORE GETTING HIT AT. LT FOOT BRIDGED ON PILLOW. NO SIGNS OF DISTRESS. CONTINUE PLAN OF CARE AND SAFETY PRECAUTIONS.
--- NOTE | 2019-02-03 08:15 | MORECARE ---
CASE MANAGEMENT DISCHARGE SUMMARY PATIENT: EMILIANO PATEL UNIT: [id number] ADM DATE: 01/18/19 AGE: 83 : 35 SEX: F ROOM/BED: D.7999 AUTHOR: MIGUEL,DOC PHYSICIAN: REFERRING PHYSICIAN: MONSERRAT DUARTE DO DATE OF SERVICE: 02/03/19 Discharge Plan Patient Name: EMILIANO PATEL Facility: [facility]:[place] : 1935 Planned Disposition: Retirement Facility Anticipated Discharge Date: Discharge Date: Expected LOS: Initial Reviewer: [id number] Initial Review Date: 01/18/2019 Generated: 02/03/19 9:15 am Comments DCP- Discharge Planning Updated by [id number]: Lev Lima on 02/03/19 7:[address] Patient Name: EMILIANO PATEL Encounter No: [id number] : 1935 Primary Insurance: HUMANA CHOICE PPO MCR ADVANT Anticipated DC Date: Planned Disposition: Retirement Facility External Planned Provider: [facility], MEDICARE REHAB DCP follow-up note: CM FAXED UPDATE TO [facility] AT [phone], REQUESTED RETURN WITH HOSPICE CARE. FOR DISCHARGE, FAX DISCHARGE INFORMATION TO [facility] AT [phone]. NURSE REPORT TO BE CALLED TO [facility] AT [phone]. [facility] TO ARRANGE VAN TRANSPORT. NOTIFY [facility] AT [phone], FAX DISCHARGE INFORMATION TO HOSPICE AT [phone]. Lev Lima, CASE MANAGEMENT DCP- Discharge Planning Updated by [id number]: Qing Valiente on 02/02/19 6:[address] LATE ENTRY 1240 DR TABARES NOTIFIED CM THAT THE FAMILY OF THE PATIENT WISH TO DISCUSS HOSPICE. THE ADULT CHILDREN ARE AT THE BEDSIDE. 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 THE PATIENT'S FAMILY CHOSE [facility] FROM THE PROVIDER LIST. TC TO [facility]. SPOKE WITH THE SERVICE. CM RECEIVED A CALLBACK AT [phone] FROM [facility]. DISCUSSED REFERRAL. CM FAXED FACE SHEET, H/P, 9/08 PROGRESS NOTE , MEDICATION LIST AND MD ORDER TO [phone]. CM SPOKE WITH THE PATIENT'S FAMILY TO CONFIRM REFERRAL. TELEPHONED SERVICE TO GIVE DAUGHTER, HUGH CISNEROS, CONTACT PHONE NUMBER THERE WAS NOT A HOSPITAL PHONE PRESENT IN THE PATIENT'S ROOM. HUGH CISNEROS- DTR- [phone]. REC CB THAT SOMEONE WOULD BE ON SITE WITHIN AN HOUR. Appended by Qing Valiente on 02/02/2019 19:32 CDT: [facility]- CONTACT [facility] DCP- Discharge Planning Updated by [id number]: Qing Valiente on 02/02/19 5:[address] [facility] MET WITH THE FAMILY AT THE BEDSIDE THIS PM. REPORTEDLY DISCUSSED HOSPICE CARE. THE PLAN IS TO RETURN TO [facility] AND REHAB ON HOSPICE. CM TELEPHONED [facility] TO CONFIRM PLAN. DISCUSSED F/U BY HOSPICE IN THE AM WITH [facility]. RUT STATES SHE ALSO TOLD THE FAMILY TO SPEAK WITH [facility] THE " FIRST THING IN THE MORNING" CM TELEPHONE [facility] AND SPOKE WITH MIGUEL. ADVISED OF PRESENT PLAN AND THAT [facility] AND THE PATIENT'S FAMILY SHOULD BE CONTACTING THE OFFICE PERSONNEL IN THE AM. THE PATIENT IS A MANAGED MEDICARE SUBSCRIBER. DCP- Discharge Planning Updated by [id number]: Lev Lima on 01/31/19 6:[address] Patient Name: EMILIANO PATEL Encounter No: [id number] : 1935 Primary Insurance: HUMANA CHOICE PPO MCR ADVANT Anticipated DC Date: Planned Disposition: Retirement Facility External Planned Provider[facility] DCP follow-up note: CM REVIEWED CHART, FAXED UPDATE TO [facility] AT [phone]. PT WILL NEED INSURANCE AUTHORIZATION FOR PT TO RETURN TO SKILLED BED; [facility] HAS NOT YET SUBMITTED FOR AUTH THEY ARE WAITING FOR PROJECTED DISCHARGE DATE. FOR DISCHARGE, FAX DISCHARGE INFORMATION TO [facility] AT [phone]. NURSE REPORT TO BE CALLED TO [facility] AT [phone]. [place] TO ARRANGE VAN TRANSPORT. Lev Lima, CASE MANAGEMENT DCP- Discharge Planning Updated by [id number]: Lev Lima on 01/30/19 7:[address] Patient Name: EMILIANO PATEL Encounter No: [id number] : 1935 Primary Insurance: HUMANA CHOICE PPO MCR ADVANT Anticipated DC Date: Planned Disposition: Retirement Facility External Planned Provider: [facility] DCP follow-up note: CM CALLED AND SPOKE TO NEO AT [place], PROVIDED UPDATE, . CM FAXED UPDATE TO [facility] AT [phone]. PT WILL NEED INSURANCE AUTHORIZATION FOR PT TO RETURN TO SKILLED BED; [facility] HAS NOT YET SUBMITTED FOR AUTH THEY ARE WAITING FOR PROJECTED DISCHARGE DATE. FOR DISCHARGE, FAX DISCHARGE INFORMATION TO [facility] AT [phone]. NURSE REPORT TO BE CALLED TO [facility] AT [phone]. [facility] TO ARRANGE VAN TRANSPORT. Lev Lima CASE MANAGEMENT DCP- Discharge Planning Updated by [id number]: Lev Lima on 01/28/19 3:[address] Patient Name: EMILIANO PATEL Encounter No: [id number] : 1935 Primary Insurance: HUMANA CHOICE PPO MCR ADVANT Anticipated DC Date: Planned Disposition: Retirement Facility External Planned Provider: [facility] DCP follow-up note: CM REVIEWED [facility] SCREENING COMPLETION FOR CLEARANCE TO RE ENTER ASSISTED FACILITY. CM CALLED AND SPOKE TO NICOLA AT [place], PROVIDED UPDATE, . CM FAXED UPDATE WITH [facility] SCREENING CLEARANCE LETTER TO [facility] AT [phone]. CM WAITING AUTHORIZATION FROM INSURANCE FOR PT TO RETURN TO SKILLED BED. FOR DISCHARGE, FAX DISCHARGE INFORMATION TO [facility] AT [phone]. NURSE REPORT TO BE CALLED TO [facility] AT [phone]. [place] TO ARRANGE VAN TRANSPORT. Lev Lima CASE MANAGEMENT DCP- Discharge Planning Updated by [id number]: Lev Lima on 01/24/19 12:[address] Patient Name: EMILIANO PATEL Encounter No: [id number] : 1935 Primary Insurance: HUMANA CHOICE PPO MCR ADVANT Anticipated DC Date: Planned Disposition: Nursing Facility [facility] Cert External Planned Provider: [facility] DCP follow-up note: CM REVIEWED CHART, PT RECEIVING GEODON FOR AGGITATION. CM COMPLETED GURU SCREENING FORM, OBTAINED TECHNICAL ACCOUNT EXECUTIVE MERNA'S SIGNATURE. CM FAXED FOR ASSESSMENT TO [facility] AT [phone]. CM WAITING GURU SCREENING COMPLETION FOR CLEARANCE TO RE ENTER ASSISTED FACILITY. CM WAITING AUTHORIZATION FROM INSURANCE FOR PT TO RETURN TO SKILLED BED. FOR DISCHARGE, FAX DISCHARGE INFORMATION TO [facility] AT [phone]. NURSE REPORT TO BE CALLED TO [facility] AT [phone]. [facility] TO AR[facility]ANGE VAN TRANSPORT. Lev Lima, CASE MANAGEMENT Lev Lima DCP- Discharge Planning Updated by [id number]: Lev Lima on 01/24/19 12:[address] Patient Name: EMILIANO PATEL Encounter No: [id number] : 1935 Primary Insurance: HUMANA CHOICE PPO [facility] ADVANT Anticipated DC Date: Planned Disposition: Nursing Facility [facility] Cert External Planned Provider: [facility] DISCHARGE PLANNING NOTE: CM RECEIVED REQUEST FROM DAUGHTER, QING CHAU, , FOR PT TO HAVE SOMETHING FOR AGGITATION AND ANXIETY. CM NOTIFIED BEDSIDE NURSE. CM WAITING AUTHORIZATION FROM INSURANCE FOR PT TO RETURN TO SKILLED BED. FOR DISCHARGE, FAX DISCHARGE INFORMATION TO [facility] AT [phone]. NURSE REPORT TO BE CALLED TO [facility] AT [phone]. [facility] TO ARRANGE VAN TRANSPORT. KRISTI Waggoner DCP- Discharge Planning Updated by [id number]: Lev Lima on 01/22/19 4:[address] Patient Name: EMILIANO PATEL Encounter No: [id number] : 1935 Primary Insurance: HUMANA CHOICE PPO [facility] ADVANT Anticipated DC Date: Planned Disposition: Nursing Facility [facility] Cert External Planned Provider: [facility], MEDICARE REHAB BED DCP follow-up note: CM RECEIVED PHONE CALL FORM QING CHAU, DAUGHTER, , WHO INFORMED CM THAT PT LIVES AT [facility] AND [facility] IN [facility]; SHE PLANS FOR PT TO RETURN TO [place] AND HAS DISCUSSED WITH NICOLA AT [place] PT RETURNING TO SKILLED REHAB IF INSURANCE WILL APPROVE. QING ASKED THAT PAPERWORK BE FAXED FOR INSURANCE TO BE CONTACTED TO REQUEST INSURANCE AUTHORIZATION. CM COMPLETED CONSENT FORM FOR [facility]. CM CALLED [facility], , LEFT MESSAGE FOR [facility]. CM FAXED REFERRAL TO [facility] AT [phone]. [facility] TO SUBMIT FOR AUTHORIZATION TO INSURANCE FOR PT TO RETURN TO SKILLED BED. FOR DISCHARGE, FAX DISCHARGE INFORMATION TO [facility] AT [phone]. NURSE REPORT TO BE CALLED TO [facility] AT [phone]. [facility] TO ARRANGE VAN TRANSPORT. Lev Lima, CASE MANAGEMENT DCP- Discharge Planning Updated by [id number]: Leeann Strong on 01/18/19 5:[address] CM met with patient/family to complete initial dc planning assessment. CM educated family on the CM role and verbal consent given by family to complete assessment. CM verified patient's address, phone number, and emergency contact phone numbers. Patient lives at [facility] and the staff is her primary caregiver. She requires total assistance with ADL's and medication management. At discharge patient plans to return to the nursing facility and family feels this is a safe discharge. Family denied any known discharge needs at this time. [facility] van will transport patient to the facility at time of discharge. PCP: Dr. Kaplan, Pharmacy: [facility] provides medications. DME: W/C bound. Emergency contacts and POA: Qing Chau (dtr) #[phone], Norah Barajas (dtr) [phone]. CM request daughter to bring a copy of POA to the nursing floor. Family denies that patient has been hospitalized within past 30 days. Transportation at dc will be the [facility] van. CM will continue to follow and will assist as needed with dc plans/needs PRN. Leeann Strong RN Coverage Notice Reviewer: [id number] - Lev Lima Notice Issued Date-Time: 01/22/2019 14:00 Notice Type: Patient Choice Letter Notice Delivered To: Patient Relationship to Patient: [employer] Name: Delivery Method: PHONE - Phone Yoana Days: Prior Verbal Notification: Recipient Understood Notice: Yes Recipient Signature: Yes Med Rec Note Co-signed by Attending: Coverage Notice Comment: [facility] Last DP export: 02/02/19 6:34 pm Patient Name: EMILIANO PATEL Page 39075 at 0815 All edits/amendments must be made on the electronic document DICTATION DATE: 02/03/19814 TOWN CLERK: HELLEN 02/03/19814 RPT#: [id number] DC DATE: STATUS: ADM IN [facility] [address] [place] [address] END OF REPORT
--- NOTE | 2019-02-03 08:28 | MORECARE ---
CASE MANAGEMENT DISCHARGE SUMMARY PATIENT: EMILIANO PATEL UNIT: [id number] ADM DATE: 01/18/19 AGE: 83 : 35 SEX: F ROOM/BED: D.0132 AUTHOR: MIGUEL,DOC PHYSICIAN: REFERRING PHYSICIAN: MONSERRAT DUARTE DO DATE OF SERVICE: 02/03/19 Discharge Plan Patient Name: EMILIANO PATEL Facility: [facility]:[place] : 1935 Planned Disposition: Fdc Facility Anticipated Discharge Date: 02/03/19 Discharge Date: Expected LOS: 16 Initial Reviewer: [id number] Initial Review Date: 01/18/2019 Generated: 02/03/19 9:27 am Comments DCP- Discharge Planning Updated by [id number]: Lev Lima on 02/03/19 7:[address] Patient Name: EMILIANO PATEL Encounter No: [id number] : 1935 Primary Insurance: HUMANA CHOICE PPO MCR ADVANT Anticipated DC Date: Planned Disposition: Fdc Facility External Planned Provider: [facility], [facility] MEDICAID BED DCP follow-up note: CM FAXED UPDATE TO [facility] AT [phone], REQUESTED RETURN WITH HOSPICE CARE. FOR DISCHARGE, FAX DISCHARGE INFORMATION TO [facility] AT [phone]. NURSE REPORT TO BE CALLED TO [facility] AT [phone]. [facility] TO ARRANGE VAN TRANSPORT. NOTIFY AT [phone], FAX DISCHARGE INFORMATION TO HOSPICE AT [phone]. Lev Lima, CASE MANAGEMENT DCP- Discharge Planning Updated by [id number]: Qing Valiente on 02/02/19 6:[address] LATE ENTRY 1240 DR TABARES NOTIFIED CM THAT THE FAMILY OF THE PATIENT WISH TO DISCUSS HOSPICE. THE ADULT CHILDREN ARE AT THE BEDSIDE. 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 THE PATIENT'S FAMILY CHOSE FROM THE PROVIDER LIST. TC TO . SPOKE WITH THE SERVICE. CM RECEIVED A CALLBACK AT [phone] FROM [facility]. DISCUSSED REFERRAL. CM FAXED FACE SHEET, H/P, 02/02 PROGRESS NOTE , MEDICATION LIST AND MD ORDER TO [phone]. CM SPOKE WITH THE PATIENT'S FAMILY TO CONFIRM REFERRAL. TELEPHONED SERVICE TO GIVE DAUGHTER, HUGH CISNEROS, CONTACT PHONE NUMBER THERE WAS NOT A HOSPITAL PHONE PRESENT IN THE PATIENT'S ROOM. HUGH CISNEROS- DTR- [phone]. REC CB THAT SOMEONE WOULD BE ON SITE WITHIN AN HOUR. Appended by Qing Valiente on 02/02/2019 19:32 CDT: [facility]- CONTACT [facility] DCP- Discharge Planning Updated by [id number]: Qing Valiente on 02/02/19 5:[address] [facility] MET WITH THE FAMILY AT THE BEDSIDE THIS PM. REPORTEDLY DISCUSSED HOSPICE CARE. THE PLAN IS TO RETURN TO [facility]. CM TELEPHONED [facility] TO CONFIRM PLAN. DISCUSSED F/U BY HOSPICE IN THE AM WITH [facility]. [facility] STATES SHE ALSO TOLD THE FAMILY TO SPEAK WITH [facility] THE " FIRST THING IN THE MORNING" CM TELEPHONE [facility] AND SPOKE WITH MIGUEL. ADVISED OF PRESENT PLAN AND THAT [facility] AND THE PATIENT'S FAMILY SHOULD BE CONTACTING THE OFFICE PERSONNEL IN THE AM. THE PATIENT IS A MANAGED MEDICARE SUBSCRIBER. DCP- Discharge Planning Updated by [id number]: Lev Lima on 01/31/19 6:[address] Patient Name: EMILIANO PATEL Encounter No: [id number] : 1935 Primary Insurance: HUMANA CHOICE PPO MCR ADVANT Anticipated DC Date: Planned Disposition: Fdc Facility External Planned Provider: [facility] DCP follow-up note: CM REVIEWED CHART, FAXED UPDATE TO [facility] AT [phone]. PT WILL NEED INSURANCE AUTHORIZATION FOR PT TO RETURN TO SKILLED BED; [facility] HAS NOT YET SUBMITTED FOR AUTH THEY ARE WAITING FOR PROJECTED DISCHARGE DATE. FOR DISCHARGE, FAX DISCHARGE INFORMATION TO [facility] AT [phone]. NURSE REPORT TO BE CALLED TO [facility] AT [phone]. [facility] TO ARRANGE VAN TRANSPORT. Lev Lima, CASE MANAGEMENT DCP- Discharge Planning Updated by [id number]: Lev Lima on 01/30/19 7:[address] Patient Name: EMILIANO PATEL Encounter No: [id number] : 1935 Primary Insurance: HUMANA CHOICE PPO MCR ADVANT Anticipated DC Date: Planned Disposition: Fdc Facility External Planned Provider: [facility] DCP follow-up note: CM CALLED AND SPOKE TO NEO AT [facility], PROVIDED UPDATE, . CM FAXED UPDATE TO [facility] AT [phone]. PT WILL NEED INSURANCE AUTHORIZATION FOR PT TO RETURN TO SKILLED BED; [facility] HAS NOT YET SUBMITTED FOR AUTH THEY ARE WAITING FOR PROJECTED DISCHARGE DATE. FOR DISCHARGE, FAX DISCHARGE INFORMATION TO [facility] AT [phone]. NURSE REPORT TO BE CALLED TO [facility] AT [phone]. [facility] TO ARRANGE VAN TRANSPORT. Lev Lima CASE MANAGEMENT DCP- Discharge Planning Updated by [id number]: Lev Lima on 01/28/19 3:[address] Patient Name: EMILIANO PATEL Encounter No: [id number] : 1935 Primary Insurance: HUMANA CHOICE PPO MCR ADVANT Anticipated DC Date: Planned Disposition: Fdc Facility External Planned Provider: [facility] DCP follow-up note: CM REVIEWED GURU SCREENING COMPLETION FOR CLEARANCE TO [facility] ENTER [facility]. CM CALLED AND SPOKE TO NICOLA AT [facility], PROVIDED UPDATE, . CM FAXED UPDATE WITH GURU SCREENING CLEARANCE LETTER TO [facility] AT [phone]. CM WAITING AUTHORIZATION FROM INSURANCE FOR PT TO RETURN TO SKILLED BED. FOR DISCHARGE, FAX DISCHARGE INFORMATION TO [facility] AT [phone]. NURSE REPORT TO BE CALLED TO [facility] AT [phone]. [facility] TO ARRANGE VAN TRANSPORT. Lev Lima, CASE MANAGEMENT DCP- Discharge Planning Updated by [id number]: Lev Lima on 01/24/19 12:[address] Patient Name: EMILIANO PATEL Encounter No: [id number] : 1935 Primary Insurance: HUMANA CHOICE PPO MCR ADVANT Anticipated DC Date: Planned Disposition: Nursing Facility [facility] Cert External Planned Provider: [facility] DCP follow-up note: CM REVIEWED CHART, PT RECEIVING GEODON FOR AGGITATION. CM COMPLETED GURU SCREENING FORM, OBTAINED JS BAUAMN'S SIGNATURE. CM FAXED FOR ASSESSMENT TO [facility] AT [phone]. CM WAITING GURU SCREENING COMPLETION FOR CLEARANCE TO RE ENTER [facility]. CM WAITING AUTHORIZATION FROM INSURANCE FOR PT TO RETURN TO SKILLED BED. FOR DISCHARGE, FAX DISCHARGE INFORMATION TO [facility] AT [phone]. NURSE REPORT TO BE CALLED TO [facility] AT [phone]. [facility] TO ARRANGE VAN TRANSPORT. Lev Lima, CASE MANAGEMENT Lev Lima DCP- Discharge Planning Updated by [id number]: Lev Lmia on 01/24/19 12:[address] Patient Name: EMILIANO PATEL Encounter No: [id number] : 1935 Primary Insurance: HUMANA CHOICE PPO MCR ADVANT Anticipated DC Date: Planned Disposition: Nursing Facility [facility] Cert External Planned Provider: [facility] DISCHARGE PLANNING NOTE: CM RECEIVED REQUEST FROM DAUGHTER, QING CHAU, , FOR PT TO HAVE SOMETHING FOR AGGITATION AND ANXIETY. CM NOTIFIED BEDSIDE NURSE. CM WAITING AUTHORIZATION FROM INSURANCE FOR PT TO RETURN TO SKILLED BED. FOR DISCHARGE, FAX DISCHARGE INFORMATION TO [facility] AT [phone]. NURSE REPORT TO BE CALLED TO [facility] AT [phone]. [facility] TO ARRANGE VAN TRANSPORT. KRISTI Waggoner DCP- Discharge Planning Updated by [id number]: Lev Lima on 01/22/19 4:[address] Patient Name: EMILIANO PATEL Encounter No: [id number] : 1935 Primary Insurance: HUMANA CHOICE PPO MCR ADVANT Anticipated DC Date: Planned Disposition: Nursing Facility [facility] Cert External Planned Provider: [facility], MEDICARE REHAB BED DCP follow-up note: CM RECEIVED PHONE CALL FORM QING CHAU, DAUGHTER, , WHO INFORMED CM THAT PT LIVES AT [facility] IN [place]; SHE PLANS FOR PT TO RETURN TO [facility] AND HAS DISCUSSED WITH NICOLA AT [facility] PT RETURNING TO SKILLED REHAB IF INSURANCE WILL APPROVE. QING ASKED THAT PAPERWORK BE FAXED FOR INSURANCE TO BE CONTACTED TO REQUEST INSURANCE AUTHORIZATION. CM COMPLETED CONSENT FORM FOR [facility]. CM CALLED [facility], , LEFT MESSAGE FOR [facility]. CM FAXED REFERRAL TO [facility] AT [phone]. [facility] TO SUBMIT FOR AUTHORIZATION TO INSURANCE FOR PT TO RETURN TO SKILLED BED. FOR DISCHARGE, FAX DISCHARGE INFORMATION TO [facility] AT [phone]. NURSE REPORT TO BE CALLED TO [facility] AT [phone]. [facility] TO ARRANGE VAN TRANSPORT. Lev Lima, CASE MANAGEMENT DCP- Discharge Planning Updated by [id number]: Leeann Strong on 01/18/19 5:[address] CM met with patient/family to complete initial dc planning assessment. CM educated family on the CM role and verbal consent given by family to complete assessment. CM verified patient's address, phone number, and emergency contact phone numbers. Patient lives at [facility] and the staff is her primary caregiver. She requires total assistance with ADL's and medication management. At discharge patient plans to return to the nursing facility and family feels this is a safe discharge. Family denied any known discharge needs at this time. [facility] van will transport patient to the facility at time of discharge. PCP: Dr. Kaplan, Pharmacy: [facility] provides medications. DME: [facility]. Emergency contacts and POA: Qing Chau (dtr) #[phone], Norah Barajas (dtr) [phone]. CM request daughter to bring a copy of POA to the nursing floor. Family denies that patient has been hospitalized within past 30 days. Transportation at [place] will be the [facility] van. CM will continue to follow and will assist as needed with dc plans/needs PRN. Leeann Strong RN Coverage Notice Reviewer: [id number] - Lev Lima Notice Issued Date-Time: 01/22/2019 14:00 Notice Type: Patient Choice Letter Notice Delivered To: Patient Relationship to Patient: Server Programmer Name: Delivery Method: PHONE - Phone Yoana Days: Prior Verbal Notification: Recipient Understood Notice: Yes Recipient Signature: Yes Med Rec Note Co-signed by Attending: Coverage Notice Comment: [facility] Last DP export: 02/03/19 7:15 am Patient Name: EMILIANO PATEL Page [id number] at 0828 All edits/amendments must be made on the electronic document DICTATION DATE: 02/03/19826 INTERACTIVE DEVELOPER: HELLEN 02/03/19826 RPT#: [id number] DC DATE: STATUS: ADM IN [facility] [address] [place] [address] END OF REPORT
--- NOTE | 2019-02-03 11:45 | NUR ---
Left foot cold to the touch and mottled. Unable to palpate pulses. DTI to left heel showing no change. The blistered area on calf remains discolored/purple. Left hip brusing has not changed. Left foot/heel is elevated with pillows. Wound care continues to monitor.
[2019-02-03 12:05] VITALS: BP 125/66
--- NOTE | 2019-02-03 14:00 | NUR ---
MOANING IN PAIN. ORAL PAIN MEDICATIONS NOT AFFECTIVE. NOTIFY JS LINDQUIST REQUESTING STRONGER MEDICATIONS. HOSPICE NURSE ARRIVES TO ASSESS. AMEENA STATES, "I WILL TALK TO "
--- NOTE | 2019-02-03 14:49 | NUR ---
OT NOTE: MAX/TOTAL ASSIST WITH BED MOB INCLUDING ROLLING SIDE TO SIDE; PT INCONT OF BOWEL AND REQUIRED TOTAL CARE FOR HYGIENE. PT ATTEMPTED TO REACH FOR BRUSH BUT UNABLE TO BRUSH HAIR; MIN ASSIST WITH WASHING FACE. IN SIGNIFICANT PAIN FOLLOWING BED MOB AND PERINEAL CARE. [facility] SANTO, OTR/L
--- NOTE | 2019-02-03 14:58 | NUR ---
OT NOTE: PT COMPLETED BED MOBILITY TASKS WITH MAX A X2. PT COMPLETED LE POSITIONING WITH TOTAL A. PT COMPLETED HYGIENE TASKS WITH TOTAL A. NURSING PRESENT AND EXAMINED LE. PT IS CONFUSED. THANK YOU, BOBY LOUISE
[2019-02-03 16:10] VITALS: BP 107/65
--- NOTE | 2019-02-03 17:02 | MORECARE ---
CASE MANAGEMENT DISCHARGE SUMMARY PATIENT: EMILIANO PATEL UNIT: [id number] ADM DATE: 01/18/19 AGE: 83 : 35 SEX: F ROOM/BED: D.7832 AUTHOR: MIGUEL,DOC PHYSICIAN: REFERRING PHYSICIAN: MONSERRAT DUARTE DO DATE OF SERVICE: 02/03/19 Discharge Plan Patient Name: EMILIANO PATEL Facility: [facility]:[place] : 1935 Planned Disposition: Hospice Medical Facility Anticipated Discharge Date: 02/03/19 Discharge Date: Expected LOS: 16 Initial Reviewer: [id number] Initial Review Date: 01/18/2019 Generated: 02/03/19 6:02 pm DCP- Discharge Planning Updated by [id number]: Lev Lima on 02/03/19 7:[address] Patient Name: EMILIANO PATEL Encounter No: [id number] : 1935 Primary Insurance: HUMANA CHOICE PPO MCR ADVANT Anticipated DC Date: Planned Disposition: Correction Facility External Planned Provider: [facility], [facility] MEDICAID BED DCP follow-up note: CM FAXED UPDATE TO [facility] AT [phone], REQUESTED RETURN WITH HOSPICE CARE. FOR DISCHARGE, FAX DISCHARGE INFORMATION TO [facility] AT [phone]. NURSE REPORT TO BE CALLED TO [facility] AT [phone]. [facility] TO ARRANGE VAN TRANSPORT. NOTIFY [facility] AT [phone], FAX DISCHARGE INFORMATION TO HOSPICE AT [phone]. Lev Lima, KRISTI MARQUEZ DCP- Discharge Planning Updated by [id number]: Qing Valiente on 02/02/19 6:[address] LATE ENTRY 1240 DR TABARES NOTIFIED CM THAT THE FAMILY OF THE PATIENT WISH TO DISCUSS HOSPICE. THE ADULT CHILDREN ARE AT THE BEDSIDE. 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 THE PATIENT'S FAMILY CHOSE HOSPICE [facility] FROM THE PROVIDER LIST. TC TO [facility]. SPOKE WITH THE SERVICE. CM RECEIVED A CALLBACK AT 1936 FROM [facility]. DISCUSSED REFERRAL. CM FAXED FACE SHEET, H/P, 02/02 PROGRESS NOTE , MEDICATION LIST AND MD ORDER TO [phone]. CM SPOKE WITH THE PATIENT'S FAMILY TO CONFIRM REFERRAL. TELEPHONED SERVICE TO GIVE DAUGHTER, HUGH CISNEROS, CONTACT PHONE NUMBER THERE WAS NOT A HOSPITAL PHONE PRESENT IN THE PATIENT'S ROOM. HUGH CISNEROS- DTR- [phone]. REC CB THAT SOMEONE WOULD BE ON SITE WITHIN AN HOUR. Appended by Qing Valiente on 02/02/2019 19:32 CDT: [facility]- CONTACT [facility] DCP- Discharge Planning Updated by [email or web address]: Qing Valiente on 02/02/19 5:[address] [facility] MET WITH THE FAMILY AT THE BEDSIDE THIS PM. REPORTEDLY DISCUSSED HOSPICE CARE. THE PLAN IS TO RETURN TO [facility]PICE. CM TELEPHONED [facility] TO CONFIRM PLAN. DISCUSSED F/U BY HOSPICE IN THE AM WITH [facility]. [facility] STATES SHE ALSO TOLD THE FAMILY TO SPEAK WITH [facility] THE " FIRST THING IN THE MORNING" CM TELEPHONE [facility] AND SPOKE WITH MIGUEL. ADVISED OF PRESENT PLAN AND THAT [facility] AND THE PATIENT'S FAMILY SHOULD BE CONTACTING THE OFFICE PERSONNEL IN THE AM. THE PATIENT IS A MANAGED MEDICARE SUBSCRIBER. DCP- Discharge Planning Updated by [id number]: Lev Lima on 01/31/19 6:[address] Patient Name: EMILIANO PATEL Encounter No: [id number] : 1935 Primary Insurance: HUMANA CHOICE PPO MCR ADVANT Anticipated DC Date: Planned Disposition: Correction Facility External Planned Provider: [facility] DCP follow-up note: CM REVIEWED CHART, FAXED UPDATE TO [facility] AT [phone]. PT WILL NEED INSURANCE AUTHORIZATION FOR PT TO RETURN TO SKILLED BED; [facility] HAS NOT YET SUBMITTED FOR AUTH THEY ARE WAITING FOR PROJECTED DISCHARGE DATE. FOR DISCHARGE, FAX DISCHARGE INFORMATION TO [facility] AT [phone]. NURSE REPORT TO BE CALLED TO [facility] AT [phone]. [facility] TO ARRANGE VAN TRANSPORT. Lev Lima, CASE MANAGEMENT DCP- Discharge Planning Updated by [id number]: Lev Lima on 01/30/19 7:[address] Patient Name: EMILIANO PATEL Encounter No: [id number] : 1935 Primary Insurance: HUMANA CHOICE PPO MCR ADVANT Anticipated DC Date: Planned Disposition: [facility] Facility External Planned Provider: [facility] DCP follow-up note: CM CALLED AND SPOKE TO NEO AT [facility], PROVIDED UPDATE, . CM FAXED UPDATE TO [facility] AT [phone]. PT WILL NEED INSURANCE AUTHORIZATION FOR PT TO RETURN TO SKILLED BED; [facility] HAS NOT YET SUBMITTED FOR AUTH THEY ARE WAITING FOR PROJECTED DISCHARGE DATE. FOR DISCHARGE, FAX DISCHARGE INFORMATION TO [facility] AT [phone]. NURSE REPORT TO BE CALLED TO [facility] AT [phone]. [facility] TO ARRANGE VAN TRANSPORT. Lev Liam CASE MANAGEMENT DCP- Discharge Planning Updated by [id number]: Lev Lima on 01/28/19 3:[address] Patient Name: EMILIANO PATEL Encounter No: [id number] : 1935 Primary Insurance: HUMANA CHOICE PPO MCR ADVANT Anticipated DC Date: Planned Disposition: [facility] Facility External Planned Provider: [facility] DCP follow-up note: CM REVIEWED GURU SCREENING COMPLETION FOR CLEARANCE TO RE ENTER [facility]. CM CALLED AND SPOKE TO NICOLA AT [facility], PROVIDED UPDATE, . CM FAXED UPDATE WITH GURU SCREENING CLEARANCE LETTER TO [facility] AT [phone]. CM WAITING AUTHORIZATION FROM INSURANCE FOR PT TO RETURN TO SKILLED BED. FOR DISCHARGE, FAX DISCHARGE INFORMATION TO [facility] AT [phone]. NURSE REPORT TO BE CALLED TO [facility] AT [phone]. [facility] TO ARRANGE VAN TRANSPORT. Lev Lima, CASE MANAGEMENT DCP- Discharge Planning Updated by [id number]: Lev Lima on 01/24/19 12:[address] Patient Name: EMILIANO PATEL Encounter No: [id number] : 1935 Primary Insurance: HUMANA CHOICE PPO MCR ADVANT Anticipated DC Date: Planned Disposition: Nursing Facility [facility] Cert External Planned Provider: [facility] DCP follow-up note: CM REVIEWED CHART, PT RECEIVING GEODON FOR AGGITATION. CM COMPLETED GURU SCREENING FORM, OBTAINED JS BAUMAN'S SIGNATURE. CM FAXED FOR ASSESSMENT TO [facility] AT [phone]. CM WAITING GURU SCREENING COMPLETION FOR CLEARANCE TO RE ENTER [facility]. CM WAITING AUTHORIZATION FROM INSURANCE FOR PT TO RETURN TO SKILLED BED. FOR DISCHARGE, FAX DISCHARGE INFORMATION TO [facility] AT [phone]. NURSE REPORT TO BE CALLED TO [facility] AT [phone]. [facility] TO ARRANGE VAN TRANSPORT. Lev Lima, CASE MANAGEMENT Lev Lima DCP- Discharge Planning Updated by [id number]: Lev Lima on 01/24/19 12:[address] Patient Name: EMILIANO PATEL Encounter No: [id number] : 1935 Primary Insurance: HUMANA CHOICE PPO MCR ADVANT Anticipated DC Date: Planned Disposition: Nursing Facility [facility] Cert External Planned Provider: [facility] DISCHARGE PLANNING NOTE: CM RECEIVED REQUEST FROM DAUGHTER, QING CHAU, , FOR PT TO HAVE SOMETHING FOR AGGITATION AND ANXIETY. CM NOTIFIED BEDSIDE NURSE. CM WAITING AUTHORIZATION FROM INSURANCE FOR PT TO RETURN TO SKILLED BED. FOR DISCHARGE, FAX DISCHARGE INFORMATION TO [facility] AT [phone]. NURSE REPORT TO BE CALLED TO [facility] AT [phone]. [facility] TO ARRANGE VAN TRANSPORT. KRISTI Waggoner DCP- Discharge Planning Updated by [id number]: Lev Lima on 01/22/19 4:[address] Patient Name: EMILIANO PATEL Encounter No: [id number] : 1935 Primary Insurance: HUMANA CHOICE PPO MCR ADVANT Anticipated DC Date: Planned Disposition: Nursing Facility [facility] Cert External Planned Provider: [facility], MEDICARE REHAB BED DCP follow-up note: CM RECEIVED PHONE CALL FORM QING CHAU, DAUGHTER, , WHO INFORMED CM THAT PT LIVES AT [facility] [place]; SHE PLANS FOR PT TO RETURN TO [facility] AND HAS DISCUSSED WITH NICOLA AT [facility] PT RETURNING TO SKILLED REHAB IF INSURANCE WILL APPROVE. QING ASKED THAT PAPERWORK BE FAXED FOR INSURANCE TO BE CONTACTED TO REQUEST INSURANCE AUTHORIZATION. CM COMPLETED CONSENT FORM FOR [facility]. CM CALLED [facility], , LEFT MESSAGE FOR [facility]. CM FAXED REFERRAL TO [facility] AT [phone]. [facility] TO SUBMIT FOR AUTHORIZATION TO INSURANCE FOR PT TO RETURN TO SKILLED BED. FOR DISCHARGE, FAX DISCHARGE INFORMATION TO [facility] AT [phone]. NURSE REPORT TO BE CALLED TO [facility] AT [phone]. [facility] TO ARRANGE VAN TRANSPORT. Lev Lima, CASE MANAGEMENT DCP- Discharge Planning Updated by [id number]: Leeann Strong on 01/18/19 5:[address] CM met with patient/family to complete initial dc planning assessment. CM educated family on the CM role and verbal consent given by family to complete assessment. CM verified patient's address, phone number, and emergency contact phone numbers. Patient lives at [facility] and the staff is her primary caregiver. She requires total assistance with ADL's and medication management. At discharge patient plans to return to the nursing facility and family feels this is a safe discharge. Family denied any known discharge needs at this time. [facility] van will transport patient to the facility at time of discharge. PCP: Dr. Kaplan, Pharmacy: [facility] provides medications. DME: [facility] bound. Emergency contacts and POA: Qing Chau (dtr) #[phone], Norah Barajas (dtr) [phone]. CM request daughter to bring a copy of POA to the nursing floor. Family denies that patient has been hospitalized within past 30 days. Transportation at dc will be the [facility] van. CM will continue to follow and will assist as needed with dc plans/needs PRN. Leeann Strong RN Coverage Notice Reviewer: [id number] - Lev Lima Notice Issued Date-Time: 01/22/2019 14:00 Notice Type: Patient Choice Letter Notice Delivered To: Patient Relationship to Patient: Steam Gigger Name: Delivery Method: PHONE - Phone Yoana Days: Prior Verbal Notification: Recipient Understood Notice: Yes Recipient Signature: Yes Med Rec Note Co-signed by Attending: Coverage Notice Comment: [facility] Last DP export: 02/03/19 7:28 am Patient Name: EMILIANO PATEL Page [id number] at 1702 All edits/amendments must be made on the electronic document DICTATION DATE: 02/03/191701 BOND CLERK: HELLEN 02/03/191701 RPT#: [id number] DC DATE: STATUS: ADM IN [facility] [address] [place] [address] END OF REPORT
--- NOTE | 2019-02-03 17:09 | MORECARE ---
CASE MANAGEMENT DISCHARGE SUMMARY PATIENT: EMILIANO PATEL UNIT: [id number] ADM DATE: 01/18/19 AGE: 83 : 35 SEX: F ROOM/BED: D.0917 AUTHOR: MIGUEL,DOC PHYSICIAN: REFERRING PHYSICIAN: MONSERRAT DUARTE DO DATE OF SERVICE: 02/03/19 Discharge Plan Patient Name: EMILIANO PATEL Facility: [facility]:[place] : 1935 Planned Disposition: Hospice Medical Facility Anticipated Discharge Date: 02/03/19 Discharge Date: Expected LOS: 16 Initial Reviewer: [id number] Initial Review Date: 01/18/2019 Generated: 02/03/19 6:09 pm Comments DCP- Discharge Planning Updated by [email or web address]: Lev Lima on 02/03/19 4:[address] Patient Name: EMILIANO PATEL Encounter No: [id number] : 1935 Primary Insurance: HUMANA CHOICE PPO MCR ADVANT Anticipated DC Date: 02-03-2019 Planned Disposition: Hospice Medical Facility External Planned Provider: [facility] DCP follow-up note: CM SPOKE TO [facility], THEY WILL NOT ACCEPT FOR HOSPICE THEY ARE AT THEIR LIMIT FOR HOSPICE PT'S, WILL MEET WITH FAMILY LATER TODAY REGARDING POSSIBLE RETURN WITH FACLITY PROVIDED COMFORT CARE. CM SPOKE TO [facility], , AT NURSES STATION WHO REPORTS FAMILY CALLED TO SPEAK TO HER ABOUT HOSPICE. CM SPOKE TO QING ROSA WHO SIGNED CONSENT FOR [facility]. IMPORTANT MESSAGE FROM MEDICARE PROVIDED AND EXPLAINED. CM RECEIVED CALL FROM [facility], WHO ADVISED THEY ARE ACCEPTING PT TONIGHT AND WILL CALL BEDSIDE NURSE FOR NURSE REPORT. CM CALLED QING ROSA, , WHO ADVISED THAT SHE IS IN AGREEMENT WITH DISCHARGE TO [facility] TODAY. NOTE FOR BEDSIDE NURSE LEFT AT HER WORKSTATION. RIPRAP PLACING SUPERVISOR NURSE NOTIFIED. [facility] WILL CALL FOR NURSE REPORT. PT TO TRANSPORT VIA AMBULANCE TO [facility], LOCATED AT [facility]. KRISTI Waggoner DCP- Discharge Planning Updated by [id number]: Lev Lima on 02/03/19 7:[address] Patient Name: EMILIANO PATEL Encounter No: [id number] : 1935 Primary Insurance: HUMANA CHOICE PPO MCR ADVANT Anticipated DC Date: Planned Disposition: Senior Living Facility External Planned Provider: [facility], [facility] MEDICAID BED DCP follow-up note: CM [facility] AT [phone], REQUESTED RETURN WITH HOSPICE CARE. FOR DISCHARGE, FAX DISCHARGE INFORMATION TO [facility] AT [phone]. NURSE REPORT TO BE CALLED TO [facility] AT [phone]. [facility] TO ARRANGE VAN TRANSPORT. NOTIFY [facility] AT [phone], FAX DISCHARGE INFORMATION TO HOSPICE AT [phone]. eLv Lima, CASE MANAGEMENT DCP- Discharge Planning Updated by [id number]: Qing Valiente on 02/02/19 6:[address] LATE ENTRY [address] DR TABARES NOTIFIED CM THAT THE FAMILY OF THE PATIENT WISH TO DISCUSS HOSPICE. THE ADULT CHILDREN ARE AT THE BEDSIDE. 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 THE PATIENT'S FAMILY CHOSE [facility] FROM THE PROVIDER LIST. TC TO [facility]. SPOKE WITH THE SERVICE. CM RECEIVED A CALLBACK AT [phone] FROM [facility]. DISCUSSED REFERRAL. CM FAXED FACE SHEET, H/P, 02/02 PROGRESS NOTE , MEDICATION LIST AND MD ORDER TO [phone]. CM SPOKE WITH THE PATIENT'S FAMILY TO CONFIRM REFERRAL. TELEPHONED SERVICE TO GIVE DAUGHTER, HUGH CISNEROS, CONTACT PHONE NUMBER THERE WAS NOT A HOSPITAL PHONE PRESENT IN THE PATIENT'S ROOM. HUGH CISNEROS- DTR- [phone]. REC CB THAT SOMEONE WOULD BE ON SITE WITHIN AN HOUR. Appended by Qing Valiente on 02/02/2019 19:32 CDT: [facility]- CONTACT [facility] DCP- Discharge Planning Updated by [id number]: Qing Valiente on 02/02/19 5:[address] [facility] MET WITH THE FAMILY AT THE BEDSIDE THIS PM. REPORTEDLY DISCUSSED HOSPICE CARE. THE PLAN IS TO RETURN TO [facility] ON HOSPICE. CM TELEPHONED [facility] TO CONFIRM PLAN. DISCUSSED F/U BY HOSPICE IN THE AM WITH [facility]. [facility] STATES SHE ALSO TOLD THE FAMILY TO SPEAK WITH [facility] THE " FIRST THING IN THE MORNING" CM TELEPHONE [facility] AND SPOKE WITH MIGUEL. ADVISED OF PRESENT PLAN AND THAT [facility] AND THE PATIENT'S FAMILY SHOULD BE CONTACTING THE OFFICE PERSONNEL IN THE AM. THE PATIENT IS A MANAGED MEDICARE SUBSCRIBER. DCP- Discharge Planning Updated by [id number]: Lev Lima on 01/31/19 6:[address] Patient Name: EMILIANO PATEL Encounter No: [id number] : 1935 Primary Insurance: HUMANA CHOICE PPO [facility] Anticipated DC Date: Planned Disposition: Senior Living Facility External Planned Provider: [facility] DCP follow-up note: CM REVIEWED CHART, FAXED UPDATE TO [facility] AT [phone]. PT WILL NEED INSURANCE AUTHORIZATION FOR PT TO RETURN TO SKILLED BED; [facility] HAS NOT YET SUBMITTED FOR AUTH THEY ARE WAITING FOR PROJECTED DISCHARGE DATE. FOR DISCHARGE, FAX DISCHARGE INFORMATION TO [facility] AT [phone]. NURSE REPORT TO BE CALLED TO [facility] AT [phone]. [facility] TO ARRANGE VAN TRANSPORT. KRISTI Waggoner DCP- Discharge Planning Updated by [id number]: Lev Lima on 01/30/19 7:[address] Patient Name: EMILIANO PATEL Encounter No: [id number] : 1935 Primary Insurance: HUMANA CHOICE PPO [facility] Anticipated DC Date: Planned Disposition: Senior Living Facility External Planned Provider: [facility] DCP follow-up note: CM CALLED AND SPOKE TO [facility] AT [facility], PROVIDED UPDATE, . CM FAXED UPDATE TO [facility] AT [phone]. PT WILL NEED INSURANCE AUTHORIZATION FOR PT TO RETURN TO SKILLED BED; [facility] HAS NOT YET SUBMITTED FOR AUTH THEY ARE WAITING FOR PROJECTED DISCHARGE DATE. FOR DISCHARGE, FAX DISCHARGE INFORMATION TO [facility] AT [phone]. NURSE REPORT TO BE CALLED TO [facility] AT [phone]. [facility] TO ARRANGE VAN TRANSPORT. Lev Janie, CASE MANAGEMENT DCP- Discharge Planning Updated by [id number]: Lev Lima on 01/28/19 3:[address] Patient Name: EMILIANO PATEL Encounter No: [id number] : 1935 Primary Insurance: HUMANA CHOICE PPO MCR ADVANT Anticipated DC Date: Planned Disposition: Senior Living Facility External Planned Provider: [facility] DCP follow-up note: CM REVIEWED [facility] SCREENING COMPLETION FOR CLEARANCE TO RE ENTER [facility]. CM CALLED AND SPOKE TO NICOLA AT [facility], PROVIDED UPDATE, . CM FAXED UPDATE WITH [facility] SCREENING CLEARANCE LETTER TO [facility] AT [phone]. CM WAITING AUTHORIZATION FROM INSURANCE FOR PT TO RETURN TO SKILLED BED. FOR DISCHARGE, FAX DISCHARGE INFORMATION TO [facility] AT [phone]. NURSE REPORT TO BE CALLED TO [facility] AT [phone]. [facility] TO ARRANGE VAN TRANSPORT. KRISTI Waggoner DCP- Discharge Planning Updated by [id number]: Lev Lima on 01/24/19 12:[address] Patient Name: EMILIANO PATEL Encounter No: [id number] : 1935 Primary Insurance: HUMANA CHOICE PPO MCR ADVANT Anticipated DC Date: Planned Disposition: Nursing Facility [facility] External Planned Provider: [facility] DCP follow-up note: CM REVIEWED CHART, PT RECEIVING GEODON FOR AGGITATION. CM COMPLETED GURU SCREENING FORM, OBTAINED JS BAUMAN'S SIGNATURE. CM FAXED FOR ASSESSMENT TO [facility] AT [phone]. CM WAITING [facility] SCREENING COMPLETION FOR CLEARANCE TO RE ENTER [facility]. CM WAITING AUTHORIZATION FROM INSURANCE FOR PT TO RETURN TO SKILLED BED. FOR DISCHARGE, FAX DISCHARGE INFORMATION TO [facility] AT [phone]. NURSE REPORT TO BE CALLED TO [facility] AT [phone]. [facility] TO ARRANGE VAN TRANSPORT. KRISTI Waggoner DCP- Discharge Planning Updated by [id number]: Lev Lima on 01/24/19 12:[address] Patient Name: EMILIANO PATEL Encounter No: [id number] : 1935 Primary Insurance: HUMANA CHOICE PPO MCR ADVANT Anticipated DC Date: Planned Disposition: Nursing Facility [facility] Cert External Planned Provider: [facility] DISCHARGE PLANNING NOTE: CM RECEIVED REQUEST FROM DAUGHTER, QING ROSA, , FOR PT TO HAVE SOMETHING FOR AGGITATION AND ANXIETY. CM NOTIFIED BEDSIDE NURSE. CM WAITING AUTHORIZATION FROM INSURANCE FOR PT TO RETURN TO SKILLED BED. FOR DISCHARGE, FAX DISCHARGE INFORMATION TO [facility] AT [phone]. NURSE REPORT TO BE CALLED TO [facility] AT [phone]. [facility] TO ARRANGE VAN TRANSPORT. Lev Lima CASE MANAGEMENT DCP- Discharge Planning Updated by [id number]: Lev Lima on 01/22/19 4:[address] Patient Name: EMILIANO PATEL Encounter No: [id number] : 1935 Primary Insurance: HUMANA CHOICE PPO MCR ADVANT Anticipated DC Date: Planned Disposition: Nursing Facility [facility] Cert External Planned Provider: [facility], MEDICARE REHAB BED DCP follow-up note: CM RECEIVED PHONE CALL FORM QING ROSA, DAUGHTER, , WHO INFORMED CM THAT PT LIVES AT [facility] IN [facility]; SHE PLANS FOR PT TO RETURN TO [facility] AND HAS DISCUSSED WITH NICOLA AT [place] PT RETURNING TO SKILLED REHAB IF INSURANCE WILL APPROVE. QING ASKED THAT PAPERWORK BE FAXED FOR INSURANCE TO BE CONTACTED TO REQUEST INSURANCE AUTHORIZATION. CM COMPLETED CONSENT FORM FOR [facility]. CM CALLED [facility], , LEFT MESSAGE FOR [facility]. CM FAXED REFERRAL TO [facility] AT [phone]. [facility] TO SUBMIT FOR AUTHORIZATION TO INSURANCE FOR PT TO RETURN TO SKILLED BED. FOR DISCHARGE, FAX DISCHARGE INFORMATION TO [facility] AT [phone]. NURSE REPORT TO BE CALLED TO [facility] AT [phone]. [facility] TO ARRANGE VAN TRANSPORT. Lev Lima CASE MANAGEMENT DCP- Discharge Planning Updated by [id number]: Leeann Strong on 01/18/19 5:[address] CM met with patient/family to complete initial dc planning assessment. CM educated family on the CM role and verbal consent given by family to complete assessment. CM verified patient's address, phone number, and emergency contact phone numbers. Patient lives at [facility] and the staff is her primary caregiver. She requires total assistance with ADL's and medication management. At discharge patient plans to return to the nursing facility and family feels this is a safe discharge. Family denied any known discharge needs at this time. [facility] will transport patient to the facility at time of discharge. PCP: Dr. Kaplan, Pharmacy: [facility] provides medications. DME: W/C bound. Emergency contacts and POA: Qing Kandi (dtr) #[phone], Norah Barajas (dtr) [phone]. CM request daughter to bring a copy of POA to the nursing floor. Family denies that patient has been hospitalized within past 30 days. Transportation at co will be the [facility]. CM will continue to follow and will assist as needed with dc plans/needs PRN. Leeann Strong RN Coverage Notice Reviewer: [id number] Lima Notice Issued Date-Time: 01/22/2019 14:00 Notice Type: Patient Choice Letter Notice Delivered To: Patient Relationship to Patient: Sap Director Name: Delivery Method: PHONE - Phone Yoana Days: Prior Verbal Notification: Recipient Understood Notice: Yes Recipient Signature: Yes Med Rec Note Co-signed by Attending: Coverage Notice Comment: [facility] Reviewer: [id number] Lima Notice Issued Date-Time: 02/03/2019 14:00 Notice Type: IM Discharge Notice Notice Delivered To: Family Member Relationship to Patient: Daughter Sap Director Name: QING ROSA Delivery Method: HAND - Hand Delivered Yoana Days: Prior Verbal Notification: Recipient Understood Notice: Yes Recipient Signature: Yes Med Rec Note Co-signed by Attending: Coverage Notice Comment: Reviewer: [id number] Lima Notice Issued Date-Time: 02/03/2019 14:00 Notice Type: IM Discharge Notice Notice Delivered To: Family Member Relationship to Patient: Daughter Sap Director Name: QING ROSA Delivery Method: HAND - Hand Delivered Yoana Days: Prior Verbal Notification: Recipient Understood Notice: Yes Recipient Signature: Yes Med Rec Note Co-signed by Attending: Coverage Notice Comment: Last DP export: 02/03/19 4:02 pm Patient Name: EMILIANO PATEL Page [id number] at 1709 All edits/amendments must be made on the electronic document DICTATION DATE: 02/03/191708 [employer] DELIVERY SPECIALIST: HELLEN 02/03/191708 RPT#: [id number] DC DATE: STATUS: ADM IN [facility] [address] [place] [address] END OF REPORT
--- NOTE | 2019-02-03 19:00 | NUR ---
RECEIVED BEDSIDE REPORT. PATIENT IS PLEASANTLY COMFUSED. PATIENT IS ORIENTED TO SELF ONLY. RESPIRATIONS ARE EVEN AND UNLABORED. NO S/S OF DISTRESS. CALL LIGHT WITHIN REACH. WILL CPOC.
--- NOTE | 2019-02-03 19:25 | NUR ---
CONFUSED. SITTING UP IN BED. REPORT GIVEN TO MAIN WITH [facility]. [facility] LEFT. [facility] CALLED FOR TRANSPORT.
[2019-02-03 20:00] VITALS: BP 127/68
--- NOTE | 2019-02-03 22:35 | NUR ---
CALLED [facility] REGARDING ETA. CLARENCE STATED THAT THEY HAVE HAD MULTIPLE EMERGENCY CALLS AND THEAT IT MY BE A WHILE.
--- NOTE | 2019-02-03 23:37 | NUR ---
[facility] CALLED REGARDING ETA OF PATIENT . EXPL[facility].
--- NOTE | 2019-02-04 00:17 | NUR ---
PATIENT DISCHARGED WITH EMS.
--- NOTE | 2019-02-05 14:32 | CN ---
PATIENT NAME:EMILIANO HUGHES MEDICAL RECORD: [id number] : [birth year] LOCATION:D.M2 D.2118 ADMIT DATE: 01/18/19 ACCOUNT: [id number] CONSULTING PHYSICIAN: JULIO BARKER MD REFERRING PHYSICIAN: MONSERRAT DUARTE DO DATE OF CONSULTATION: 02/01/2019 DIAGNOSES: 1. Limb ischemia, left lower extremity. 2. Embolic event, left lower extremity. 3. Atrial fibrillation. 4. Status post hip fracture repair. HISTORY OF PRESENT ILLNESS: Ms. Hughes underwent hip fracture repair and developed a cold left lower extremity. She was seen by interventional radiology and felt to have occlusion of the left leg at the popliteal level. I have reviewed these studies. This appears to be embolic. Most likely because of off the anticoagulation, atrial fibrillation. She had an embolic event to the left lower extremity. She has gross tissue loss. With her degree of dementia and inability to understand and inability to lie flat, an interventional procedure is not possible. At this time she would need prolonged thrombolytics. I agree with interventional radiology with thrombolytic therapy should be at risk of LICENSING REGISTRATION EXAMINER bleed, hence the risks of thrombolytic therapy outweighs the benefit at this time, the benefit is minimal as there is already tissue loss and most likely reconstituting brisk distal flow would be impossible. Unfortunately, continued anticoagulation is the only treatment for this at this time and her overall prognosis is extremely poor. TRANSINT:[id number] Voice Confirmation ID: [id number] DOCUMENT ID: [id number] JULIO BARKER MD at 1432 CC: [id number] DICTATION DATE: 02/01/19 1621 STONE UNLOADER: 02/01/192031 DIS IN 02/04/19 [facility] [address] [id number]
== END 2019-02-04 00:18 | disposition home health service (06) | DRG 480 ==
LOC: D.ER 16:35 → D.MS 18:00 → D.M2 18:00
PROVIDERS: Emergency Medicine; Family Medicine; General Practice; Internal Medicine Nephrology; Orthopaedic Surgery; ADMIT Family Medicine; ATTEND Family Medicine
PROC: 0QS906Z Reposition Left Femoral Shaft with Intramedullary Internal Fixation Device, Open Approach (ICD-10-PCS; principal; 2019-01-19 09:00)
DX: S72.142A Displaced intertrochanteric fracture of left femur, initial encounter for closed fracture (principal); G92 Toxic encephalopathy; R53.2 Functional quadriplegia; E43 Unspecified severe protein-calorie malnutrition; J69.0 Pneumonitis due to inhalation of food and vomit; N39.0 Urinary tract infection, site not specified; I74.3 Embolism and thrombosis of arteries of the lower extremities; I96 Gangrene, not elsewhere classified; I69.354 Hemiplegia and hemiparesis following cerebral infarction affecting left non-dominant side; W06.XXXA Fall from bed, initial encounter; Z91.81 History of falling; I10 Essential (primary) hypertension; I25.10 Atherosclerotic heart disease of native coronary artery without angina pectoris; I48.91 Unspecified atrial fibrillation; G30.9 Alzheimer's disease, unspecified; F02.80 Dementia in other diseases classified elsewhere, unspecified severity, without behavioral disturbance, psychotic disturbance, mood disturbance, and anxiety; M19.90 Unspecified osteoarthritis, unspecified site; E78.5 Hyperlipidemia, unspecified; R00.0 Tachycardia, unspecified; D64.9 Anemia, unspecified; Z68.26 Body mass index [BMI] 26.0-26.9, adult; R40.2354 Coma scale, best motor response, localizes pain, 24 hours or more after hospital admission; R40.2134 Coma scale, eyes open, to sound, 24 hours or more after hospital admission; R40.2244 Coma scale, best verbal response, confused conversation, 24 hours or more after hospital admission; Z86.73 Personal history of transient ischemic attack (TIA), and cerebral infarction without residual deficits